=== PATIENT | female | born 1945 | race Caucasian/White ===

== ENCOUNTER 2019-11-24 14:50 | Outpatient (CLI) | payer MEDICARE, SELFPAY ==
--- NOTE | ~2019-11-24 | XR_ITS ---
XR abdomen/kub 1V DATE: 11/24/2019 15:19 INDICATION: Abdominal pain. Constipation. TECHNIQUE: AP view COMPARISON: None FINDINGS: There is a very prominent amount of fecal material in the rectum and colon consistent with constipation. No bowel obstruction is evident. The psoas shadows are intact. No visceromegaly is detected. 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 Moderate os teopenia is suggested. IMPRESSION: Prominent amount of fecal material in the rectum and colon consistent with constipation Reviewed, dictated and finalized at [facility]. Reviewed, dictated and finalized at location A. IMPRESSION: Prominent amount of fecal material in the rectum and colon consiste nt with constipation
== END 2019-11-24 14:51 | disposition home or self-care (01) ==
LOC: ANHIMG 14:57
PROVIDERS: PCP Family Medicine; Visit Provider Family Medicine
DX: K59.00 Constipation, unspecified (principal)
CPT/HCPCS: 74018

== ENCOUNTER 2020-01-11 09:47 | Outpatient (CLI) | payer MEDICARE, SELFPAY ==
--- NOTE | ~2020-01-11 | MM_ITS ---
EXAMINATION: MM screening [facility] BI w corinne HISTORY: Screening mammogram TECHNIQUE: Craniocaudal and mediolateral oblique 3-D tomosynthesis images were obtained and synthetic 2-D images were generated. CAD analysis was submitted and interpreted. COMPARISON: 11/22/2018, 11/16/2017, 11/10/2016 BREAST PARENCHYMAL COMPOSITION: There are scattered areas of fibroglandular density. FINDINGS: There is no evidence of suspicious mass, calcification, or architectural distortion to sugg est malignancy in either breast. There has been no suspicious interval change. IMPRESSION: 1. No mammographic evidence of malignancy. 2. Recommend routine screening mammography in one year. BI-RADS Category 1: Negative Reviewed, dictated and finalized at location A.
== END 2020-01-11 09:48 | disposition home or self-care (01) ==
PROVIDERS: PCP Family Medicine; Visit Provider Family Medicine
DX: Z12.31 Encounter for screening mammogram for malignant neoplasm of breast (principal)
CPT/HCPCS: 77063; 77067

== ENCOUNTER 2020-11-26 03:09 | Day surgery (SDC) | payer MEDICARE, SELFPAY ==
[2020-11-19 13:19] VITALS: BMI 24.4
[2020-11-26 08:45] VITALS: BP 125/65; PULSE 73; RESP 18; TEMP 36.2; O2SAT 99; BMI 23.6
--- NOTE | 2020-11-26 08:58 | WPDANESEPPF ---
Anes - Initial Pre Proc Eval Procedure: Operation Date: 11/26/20 09:30 Proposed Procedures p Screening Colonoscopy - Shaggy Morley MD Date/Time: 11/26/20 08:58 Surgeon: Shaggy Morley MD Pre Op Diagnosis: neoplasm screening Patient Data Age: 75 Gender: F Height: 1.6 m Weight: 60.6 kg Last Vital Signs Temp 36.2 C L 11/26/20 08:45 Pulse 73 11/26/20 08:45 Resp 18 11/26/20 08:45 BP 125/65 11/26/20 08:45 Pulse Ox 99 11/26/20 08:45 Allergies Allergy/AdvReac Type Severity Reaction Status Date / Time alendronate sodium AdvReac Severe joint Verified 11/26/20 08:45 [From Fosamax] stiffness ciprofloxacin AdvReac Unknown Nausea Verified 11/26/20 08:45 Home Medications Medication Instructions Recorded Confirmed Type estradiol 10 mcg vaginal insert 10 mcg VAGINAL 2XW 03/24/19 11/19/20 History lisinopril 10 mg tablet See Rx Instructions .ROUTE 07/16/20 11/19/20 Rx .COMPLEX #90 tablet B-complex with vitamin C ml 11/19/20 History [B-Complex W/Vitamin B-12] geriatric multivitamin-min 1 tablet PO DAILY 11/19/20 11/19/20 History [One-A-Day 50 Plus] lactobacillus combination no.8 1 cell PO DAILY 11/19/20 11/26/20 History [Adult Probiotic] Patient hx anesthesia problems: none Family hx anesthesia problems: none PMFSH Past Medical History Medical History Age related osteoporosis Arthritis Hepatitis C antibody test negative (10/24/16) Surgical History Surgical History (Updated 11/26/20 @ 09:00 by Miguel Ángel Swanson MD) H/O colonoscopy Family History Family History Grandparent Family history of premature coronary heart disease Diabetes mellitus Hypertension Cerebrovascular accident Family history of coronary artery disease Father Hypertension Family history of congestive heart failure Mother Hypertension Son Diabetes mellitus Social History Social History (Updated 10/10/20 @ 13:16 by Kerry Courtney CMA) Smoking status: Never smoker Alcohol intake: current Drinks per week: 7 Alcohol use details: 1 glass wine daily Substance use: never Substance use type: does not use Living arrangements: with family Additional living arrangements comments: lives with spouse Kiran Gender identity (if verbalized by the patient): Female Sexual Orientation (if Verbalized by the Patient): Straight or Heterosexual Spiritual care concerns: No Anes - Eval Final PreProcedure Day of Procedure 11/26/20 08:58 Patient weight: normal Heart: regular rate and rhythm Lungs: clear to auscultation Airway: Mallampati scale class II Neurological: alert and oriented Last oral intake: >/= 8 hours ASA classification: II Emergent: no Anesthetic plan: proceed Anesthesia type and monitoring: general GIVS and standard monitoring Informed Consent: The patient's anesthetic plan and its attendant risks and benefits were discussed with the patient/family/POA. Questions were solicited and answers provided to the satisfaction of the patient/family/POA.
[2020-11-26] MEDS: LACTATED RINGERS 1,000 ML 150 ML IV CONT (08:59)
--- NOTE | 2020-11-26 09:09 | WPDGICN ---
Assessment and Plan Assessment and plan (1) Encounter for screening colonoscopy: Code(s): Z12.11 - Encounter for screening for malignant neoplasm of colon Status: Acute Assessment and Plan: patient presents for screening colonoscopy. Has been 10 years since last exam. Further recommendations will be given after colonoscopy. (2) Constipation: Code(s): K59.00 - Constipation, unspecified Status: Acute Assessment and Plan: Patient with chronic constipation. Suggest she take laxatives on a scheduled basis. Milk of magnesia currently being used. She may benefit from MiraLax several times a week. Further recommendations may be given after colonoscopy. GI Consult Note Consult date/time: 11/26/20 09:09 HPI: Carly Askew is a 75 year old female Presents for colonoscopy. Patient is last colonoscopy was 10 years ago. Patient denies any blood in her stools. She has had a tendency of constipation. This is felt much improved after taking MiraLax in preparation for colonoscopy. She states that tends to be bloated with irregular infrequent bowel movements she previously took milk of magnesia as needed. But had good response to MiraLax preparation for colonoscopy. She denies any bleeding. Family history is noncontributory. Review of Systems Review of Systems: All systems reviewed & are unremarkable except as noted in HPI and below PMFSH Past Medical History Medical History (Updated 11/26/20 @ 09:11 by Shaggy Morley MD) Age related osteoporosis Arthritis Hepatitis C antibody test negative (10/24/16) Surgical History Surgical History (Updated 11/26/20 @ 09:00 by Miguel Ángel Swanson MD) H/O colonoscopy Family History Family History Grandparent Family history of premature coronary heart disease Diabetes mellitus Hypertension Cerebrovascular accident Family history of coronary artery disease Father Hypertension Family history of congestive heart failure Mother Hypertension Son Diabetes mellitus Social History Social History (Updated 10/10/20 @ 13:16 by Kerry Courtney CMA) Smoking status: Never smoker Alcohol intake: current Drinks per week: 7 Alcohol use details: 1 glass wine daily Substance use: never Substance use type: does not use Living arrangements: with family Additional living arrangements comments: lives with spouse Kiran Gender identity (if verbalized by the patient): Female Sexual Orientation (if Verbalized by the Patient): Straight or Heterosexual Spiritual care concerns: No Meds Home Medications and Allergies Home Medications Medication Instructions Recorded Confirmed Type estradiol 10 mcg vaginal insert 10 mcg VAGINAL 2XW 03/24/19 11/19/20 History lisinopril 10 mg tablet See Rx Instructions .ROUTE 07/16/20 11/19/20 Rx .COMPLEX #90 tablet B-complex with vitamin C ml 11/19/20 History [B-Complex W/Vitamin B-12] geriatric multivitamin-min 1 tablet PO DAILY 11/19/20 11/19/20 History [One-A-Day 50 Plus] lactobacillus combination no.8 1 cell PO DAILY 11/19/20 11/26/20 History [Adult Probiotic] Allergies Allergy/AdvReac Type Severity Reaction Status Date / Time alendronate sodium AdvReac Severe joint Verified 11/26/20 08:45 [From Fosamax] stiffness ciprofloxacin AdvReac Unknown Nausea Verified 11/26/20 08:45 Vital Signs Vital Signs - 24 hr 11/26/20 08:45 Temperature 97.1 F L Pulse Rate 73 Respiratory Rate 18 Blood Pressure 125/65 Pulse Oximetry 99 Exam Narrative: Physical exam reveals patient to be alert. Vital signs stable. HEENT exam is unremarkable. Patient is anicteric. Lungs are clear to auscultation and percussion. Heart is without murmur or extra sounds. Abdominal exam bowel sounds are present soft nontender with no hepatosplenomegaly. Digital external rectal exam is normal
[2020-11-26 09:42] VITALS: BP 88/51; PULSE 67; RESP 19; O2SAT 98
[2020-11-26 09:52] VITALS: BP 100/53; PULSE 59; RESP 15; O2SAT 99
[2020-11-26 10:02] VITALS: BP 117/65; PULSE 63; RESP 23; O2SAT 100
== END 2020-11-26 10:15 | disposition home or self-care (01) ==
PROVIDERS: PCP Family Medicine; Visit Provider Internal Medicine Gastroenterology
PROC: 0DJD8ZZ Inspection of Lower Intestinal Tract, Via Natural or Artificial Opening Endoscopic (ICD-10-PCS; CPT 45378; principal; 2020-11-26 09:30)
DX: Z12.11 Encounter for screening for malignant neoplasm of colon (principal); K59.09 Other constipation; K64.8 Other hemorrhoids; M81.0 Age-related osteoporosis without current pathological fracture; M19.90 Unspecified osteoarthritis, unspecified site
CPT/HCPCS: G0121; J2704; J7120

== ENCOUNTER 2021-03-27 13:21 | Outpatient (CLI) | payer MEDICARE, SELFPAY ==
--- NOTE | ~2021-03-27 | MM_ITS ---
EXAMINATION: MM screening [facility] BI w corinne HISTORY: Screening mammogram TECHNIQUE: Craniocaudal and mediolateral oblique 3-D tomosynthesis images were obtained and synthetic 2-D images were generated. CAD analysis was submitted and interpreted. COMPARISON: 01/11/2020, 11/22/2018, 11/16/2017 bilateral screening mammogram examinations BREAST PARENCHYMAL COMPOSITION: There are scattered areas of fibroglandular density. FINDINGS: There is no evidence of suspicious mass, calcification, or architectural distortion to sugg est malignancy in either breast. There has been no suspicious interval change. IMPRESSION: 1. No mammographic evidence of malignancy. 2. Recommend routine screening mammography in one year. BI-RADS Category 1: Negative Reviewed, dictated and finalized at location A. 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
== END 2021-03-27 13:22 | disposition home or self-care (01) ==
LOC: ANHIMG 13:25
PROVIDERS: PCP Family Medicine
DX: Z12.31 Encounter for screening mammogram for malignant neoplasm of breast (principal)
CPT/HCPCS: 77063; 77067

== ENCOUNTER 2021-04-16 13:03 | Outpatient (CLI) | payer MEDICARE, SELFPAY ==
--- NOTE | ~2021-04-16 | DEXA_ITS ---
Bone Density Report Name: JENNIFER TURNER Age: 76 Sex: Female Ethnicity: White Date of : 1945 Indication: osteopenia; parental hip fracture; height loss; prior fracture; Referring Provider: Adenike Lazo Study: Bone densitometry was performed. Exam Date: April 16, 2021 Accession number: [id number] Bone Density: Region BMD T-score Z-score Classification AP Spine (L1-L4) 0.934 -1.0 1.4 Normal Femoral Neck (Left) 0.620 -2.1 0.1 Osteopenia Total Hip (Left) 0.770 -1.4 0.4 Osteopenia Total Hip Bilateral Avg 0.763 -1.5 0.4 Osteopenia Femoral Neck (Right) 0.617 -2.1 0.0 Osteopenia Total Hip (Right) 0.756 -1.5 0.3 Osteopenia World Health Organization criteria for BMD impression classify patients as: Normal (T-score at or above -1.0), Osteopenia (T-score between -1.0 and -2.5), or Osteoporosis (T-score at or below -2.5). 10-year Fracture Risk(1): Major Osteoporotic Fracture 35% Hip Fracture 21% Reported Risk Factors: [place] (), Neck BMD=0.617, BMI=25.1, previous fracture, parental fracture (1) FRAX(R) Version 3.08. Fracture probability calculated for an untreated patient. Fracture probability may be lower if the patient has received treatment. Previous Exams: Region Exam Age BMD T-score BMD Change BMD Change Date g/cm2 vs Baseline vs Previous AP Spine(L1-L4) 04/16/2021 76 0.934 -1.0 -0.146(-13.5%) 0.023(2.5%)* 04/19/2018 73 0.911 -1.2 -0.169(-15.6%) -0.036(-3.8%)* 11/06/2015 70 0.947 -0.9 -0.133(-12.3%) -0.068(-6.7%)# 07/25/2010 65 1.014 -0.3 -0.065(-6.0%)* -0.019(-1.8%) 05/02/2008 63 1.033 -0.1 -0.046(-4.3%)* 0.079(8.3%)* 03/19/2005 60 0.954 -0.8 -0.126(-11.6%) -0.126(-11.6%) 03/31/2001 56 1.079 0.3 Total Hip(Left) 04/16/2021 76 0.770 -1.4 -0.110(-12.5%) -0.009(-1.1%) 04/19/2018 73 0.779 -1.3 -0.101(-11.5%) 0.009(1.2%) 11/06/2015 70 0.770 -1.4 -0.111(-12.6%) -0.021(-2.7%)# 07/25/2010 65 0.791 -1.2 -0.089(-10.2%) -0.001(-0.1%) 05/02/2008 63 0.792 -1.2 -0.088(-10.0%) -0.019(-2.4%) 03/19/2005 60 0.811 -1.1 -0.069(-7.9%)* -0.069(-7.9%)* 03/31/2001 56 0.880 -0.5 Total Hip(Right) 04/16/2021 76 0.756 -1.5 N/A 1.5% 04/19/2018 73 0.744 -1.6 N/A -1.2% 11/06/2015 70 0.753 -1.5 N/A -1.9%# 07/25/2010 65 0.768 -1.4 N/A 0.9% 05/02/2008 63 0.761 -1.5 N/A -0.5% 03/19/2005 60 0.765 -1.5 N/A N/A 03/31/2001 56 N/A N/A
== END 2021-04-16 13:04 | disposition home or self-care (01) ==
LOC: ANHIMG 13:07
PROVIDERS: PCP Family Medicine; Visit Provider Physician Assistant
DX: Z78.0 Asymptomatic menopausal state (principal); M85.851 Other specified disorders of bone density and structure, right thigh; M85.852 Other specified disorders of bone density and structure, left thigh
CPT/HCPCS: 77080

== ENCOUNTER → 2022-01-02 16:04 | Outpatient (CLI) | payer MEDICARE, SELFPAY ==
--- NOTE | ~2022-01-02 | XR_ITS ---
XR foot LT min 3V DATE: 01/02/2022 16:15 INDICATION: Left foot pain after Injury Kicking at. Fifth digit pain TECHNIQUE: 4 views COMPARISON: None FINDINGS: Mildly comminuted intra-articular virtually nondisplaced fracture at the neck and head of t he proximal phalanx of the fifth digit. No other fracture or dislocation. Osteopenia. Pes planus. IMPRESSION: Virtually nondisplaced comminuted intra-articular fracture of the neck and head of the pr oximal phalanx of the fifth digit Reviewed, dictated and finalized at location [facility]. IMPRESSION: Virtually nondisplaced comminuted intra-articular fracture of the n nevaeh and head of the proximal phalanx of the fifth digit
== END ==
PROVIDERS: PCP Nurse Practitioner; Visit Provider Nurse Practitioner
DX: S92.525A Nondisplaced fracture of middle phalanx of left lesser toe(s), initial encounter for closed fracture (principal)
CPT/HCPCS: 73630

== ENCOUNTER → 2022-04-30 10:22 | Outpatient (CLI) | payer MEDICARE, SELFPAY ==
--- NOTE | ~2022-04-30 | MR_ITS ---
MRI of the lumbar spine Clinical History: Sciatica Technique: Axial T2-weighted images, and sagittal T1-weighted, T2-weighted, and T2 fat-sat images wer e acquired. COMPARISON: 10/16/2017 Findings: No acute fracture identified. Osseous alignment is unchanged from prior exam. Stable grade 1 anterolisthesis of L3 over L4. No suspicious bone marrow signal abnormality identified. There are r eactive marrow signal changes about the L5-S1 disc space due to underlying degenerative disc change. At L1-L2, there is mild facet arthropathy. No disc bulge or herniation. No spinal canal stenosis or d efinite neural foraminal narrowing. At L2-L3, there is mild right foraminal disc bulge with minimal facet joint degenerative change. No s martina canal stenosis or left neural foraminal narrowing. There is minimal right neural foraminal narr owing. At L3-L4, disc bulge and facet arthropathy contribute to focal moderate thecal sac compression. There is moderate right neural foraminal narrowing and minimal left neural foraminal narrowing. At L4-L5, disc bulge and facet arthropathy result in severe spinal canal stenosis/thecal sac compress ion. There is moderate bilateral neural foraminal narrowing. At L5-S1, disc bulge and facet arthropathy are present. No spinal canal stenosis. There is minimal le ft neural foraminal narrowing. Right neural foramen preserved. Paravertebral soft tissues are unremarkable. Impression: Degenerative spondylosis is overall similar to prior exam. There is multifactorial severe spinal spring l stenosis/thecal sac compression L4-L5, and moderate thecal sac compression at L3-L4. Multilevel neural foraminal narrowing, as detailed above. Stable grade 1 anterolisthesis of L3 over L4. Reviewed, dictated and finalized at [facility]. [employer] Impression: Degenerative spondylosis is overall similar to prior exam. There is multifactor ial severe spinal canal stenosis/thecal sac compression L4-L5, and moderate the margarito sac compression at L3-L4. Multilevel neural foraminal narrowing, as detailed above. Stable grade 1 anterolisthesis of L3 over L4.
== END ==
PROVIDERS: PCP Family Medicine; Visit Provider Family Medicine
DX: M47.816 Spondylosis without myelopathy or radiculopathy, lumbar region (principal)
CPT/HCPCS: 72148

== ENCOUNTER 2022-06-10 14:56 | Outpatient (CLI) | payer MEDICARE, SELFPAY ==
--- NOTE | ~2022-06-10 | MM_ITS ---
EXAMINATION: MM screening [facility] BI w corinne HISTORY: Screening mammogram TECHNIQUE: Craniocaudal and mediolateral oblique 3-D tomosynthesis images were obtained and synthetic 2-D images were generated. CAD analysis was submitted and interpreted. COMPARISON: 03/27/2021, 01/11/2020, 11/22/2018 bilateral screening mammogram examinations BREAST PARENCHYMAL COMPOSITION: There are scattered areas of fibroglandular density. FINDINGS: There is no evidence of suspicious mass, calcification, or architectural distortion to sugg est malignancy in either breast. There has been no suspicious interval change. IMPRESSION: 1. No mammographic evidence of malignancy. 2. Recommend routine screening mammography in one year. BI-RADS Category 1: Negative Reviewed, dictated and finalized at location A. NISTRATIVE SERVICES MANAGER
== END 2022-06-10 14:57 | disposition home or self-care (01) ==
PROVIDERS: PCP Family Medicine; Visit Provider Family Medicine
DX: Z12.31 Encounter for screening mammogram for malignant neoplasm of breast (principal)
CPT/HCPCS: 77063; 77067

== ENCOUNTER 2022-08-19 11:39 | Outpatient (CLI) | payer MEDICARE, SELFPAY ==
[2022-08-20 09:28] LABS: Kit Draw Collected
== END 2022-08-19 11:40 | disposition home or self-care (01) ==
LOC: ANHGOSHLAB 11:40
PROVIDERS: PCP Family Medicine; Visit Provider Family Medicine
DX: E03.9 Hypothyroidism, unspecified (principal); I10 Essential (primary) hypertension; Z79.899 Other long term (current) drug therapy
CPT/HCPCS: 36415

== ENCOUNTER 2022-12-05 12:01 | Emergency (ER) | payer MEDICARE, SELFPAY ==
--- NOTE | 2022-12-05 12:34 | ED.SKABFB ---
HPI - Skin/Abscess/Foreign Bdy General Chief complaint: Skin/Abscess/Foreign Body Stated complaint: Sore on left leg Time Seen by Provider: 12/05/22 12:35 Source: patient and RN notes reviewed Mode of arrival: ambulatory Limitations: no limitations History of Present Illness HPI narrative: 77-year-old female presents with concern for an infected wound. She reports she had spot on her leg that she had excised at a fruit buyer. She reports for 1 week the area has been open, not healing with surrounding redness, tenderness. Reports purulent drainage from it today. Reports she has been cleaning it with Dial soap and using Neosporin, keeping it covered. MD complaint: other Related Data Home Medications Medication Instructions Recorded Confirmed geriatric multivitamin-min 1 tablet PO DAILY 11/19/20 08/21/22 trimethoprim 100 mg tablet 100 mg PO DAILY 12/05/22 12/05/22 Allergies Allergy/AdvReac Type Severity Reaction Status Date / Time alendronate sodium AdvReac Severe joint Verified 08/21/22 13:24 [From Fosamax] stiffness ciprofloxacin AdvReac Unknown Nausea Verified 08/21/22 13:24 Review of Systems Review of Systems: CONSTITUTIONAL: Denies malaise, chills, sweats, or fever. IOVASCULAR: Denies chest pain, palpitations, or edema. SKIN: Reports nonhealing wound on her leg with purulent drainage MUSCULOSKELETAL: Denies joint pain or myalgia. NEUROLOGIC: Denies headache. All systems reviewed & are unremarkable except as noted in HPI and below PMFSH Past Medical History Medical History Age related osteoporosis Allergy to insect bites Arthritis Bacterial vaginosis Body mass index [BMI] 24.0-24.9, adult (12/03/18) Breast cancer screening Constipation in female Dysuria Elevated blood pressure reading without diagnosis of hypertension Encounter for immunization (01/19/18) Hematuria, unspecified Hepatitis C antibody test negative (10/24/16) Liver disease, unspecified Nocturia Other spondylosis with radiculopathy, lumbar region Pain in joint involving lower leg Post-menopause Recurrent cystitis Sciatica of right side Trigger middle finger of right hand URI, acute Urine frequency UTI (urinary tract infection), bacterial Surgical History Surgical History H/O colonoscopy Ovarian cyst 1998 Dr. Greene Family History Family History Grandparent Family history of premature coronary heart disease Diabetes mellitus Hypertension Cerebrovascular accident Family history of coronary artery disease Father Hypertension Family history of congestive heart failure Mother Hypertension Son Diabetes mellitus Other Arthritis Social History Social History Smoking status: Never smoker Alcohol intake: current Drinks per week: 7 Alcohol use details: 1 glass wine daily Substance use: never Substance use type: does not use Lack of Transportation: No Lack of Food: Never True Current Housing: I Have Housing Concerned About Future Housing: No Difficulty Paying Gas/Electric Bills: No Difficulty Paying for Meds: No Currently Unemployed: No Education: Associate Degree Difficulty w/ Childcare or Family Care: No Living arrangements: with family Additional living arrangements comments: lives with spouse Kiran Occupation/Education: retired Gender identity (if verbalized by the patient): Female Sexual Orientation (if Verbalized by the Patient): Straight or Heterosexual Spiritual care concerns: No Comments At time of signature, agree with nursing past medical, surgical, social and family history. There is no relevant family history pertinent to the presenting complaint Exam Narrative: GENERAL: Well-appearing, well-nourished, and in no acute distress. HEA
[2022-12-05 12:37] VITALS: BP 145/85; PULSE 66; RESP 16; TEMP 36.5; O2SAT 100
== END 2022-12-05 12:55 | disposition home or self-care (01) ==
PROVIDERS: Emergency Provider Nurse Practitioner; PCP Family Medicine
DX: L03.116 Cellulitis of left lower limb (principal); M19.90 Unspecified osteoarthritis, unspecified site; M47.26 Other spondylosis with radiculopathy, lumbar region
CPT/HCPCS: 99213; G0463

== ENCOUNTER → 2022-12-29 12:34 | Outpatient (CLI) | payer MEDICARE, SELFPAY ==
--- NOTE | ~2022-12-29 | CT_ITS ---
CT of the Abdomen and Pelvis: Indication: Abdominal distention Technique: 2.5 mm axial scans were obtained through the abdomen and pelvis following intravenous adm inistration of 100 cc of Omnipaque 350. Dose reduction technique was used on this scan by utilizing a utomated exposure control and iterative reconstruction technique. The dose-length product (DLP) was 4 97.05 mGy-cm. Findings: Scans through the lung bases are unremarkable. The liver, spleen, pancreas, gallbladder, adrenals and kidneys are within normal limits. There are atherosclerotic calcifications of the aorta. No lymphadenopathy. No bowel obstruction or bowel wall thickening. Large stool burden suggests constipation. Images through the pelvis were performed. Urinary bladder unremarkable. No adnexal mass evident. No a scites. Impression: Large stool burden suggests constipation. Reviewed, dictated and finalized at [facility]. Impression: Large stool burden suggests constipation.
[2022-12-29 12:56] LABS: Estimated Glomerular Filt Rate > 60
== END ==
PROVIDERS: PCP Family Medicine
DX: R14.0 Abdominal distension (gaseous) (principal)
CPT/HCPCS: 74177; Q9967

== ENCOUNTER 2023-02-02 09:33 | Outpatient (CLI) | payer MEDICARE, SELFPAY ==
[2023-02-02 19:24] LABS: Hematocrit 43.9 % (37.0-47.0); Hemoglobin 14.2 g/dL (12.0-15.0); Mean Corpuscular HGB Conc 32.3 g/dl (32-36); Mean Corpuscular Hemoglobin 32.7 pg (26-34); Mean Corpuscular Volume 101.2 fl (80-100); Mean Platelet Volume 10.1 fl (7.4-10.4); Platelet Count Result 307 k/mm3 (150-375); Red Blood Count 4.34 M/mm3 (4.2-5.4); Red Cell Distribution Width 12.2 % (11.5-14.5); White Blood Count 4.9 K/mm3 (4.5-10.0)
[2023-02-02 19:49] LABS: Alanine Aminotransferase 27 U/L (6-35); Albumin Level 4.4 g/dL (3.5-5.1); Alkaline Phosphatase 75 U/L (38-126); Anion Gap 6 mmol/L (8-16); Aspartate Amino Transferase 43 U/L (14-36); Bilirubin,Total 0.7 mg/dL (0.2-1.3); Blood Urea Nitrogen 20 mg/dL (7-17); Calcium 10.3 mg/dL (8.4-10.2); Carbon Dioxide 31 mmol/L (22-30); Chloride 95 mmol/L (98-107); Cholesterol 195 mg/dL (0-200); Estimated Glomerular Filt Rate > 60; Glucose 65 mg/dL (65-110); HDL Direct 75 mg/dL; Potassium 4.1 mmol/L (3.4-5.0); Sodium 132 mmol/L (137-145); Triglycerides 93 mg/dL (<150)
[2023-02-02 20:00] LABS: LDL Cholesterol Direct 89 mg/dL
== END 2023-02-02 09:34 | disposition home or self-care (01) ==
LOC: ANHGOSHLAB 09:35
PROVIDERS: PCP Family Medicine; Visit Provider Family Medicine
DX: E66.3 Overweight (principal); I10 Essential (primary) hypertension; Z79.899 Other long term (current) drug therapy
CPT/HCPCS: 36415; 80053; 80061; 84443; 85027

== ENCOUNTER 2023-02-08 12:14 | Emergency (ER) | payer MEDICARE, SELFPAY ==
--- NOTE | 2023-02-08 12:22 | ED.FEMALEGU ---
HPI - Female Genitourinary General Chief complaint: Urogenital-Female Stated complaint: Uti symptoms Time Seen by Provider: 02/08/23 12:28 Source: patient, RN notes reviewed and old records reviewed Mode of arrival: ambulatory Limitations: no limitations History of Present Illness HPI Narrative: 78-year-old female presents to the [facility] with concerns for a UTI. Patient reports since Thursday she has had burning, frequency and urgency. States last night she had to get up during the night to urinate. Patient denies any nausea or vomiting. No new back pain. Denies any abdominal pain. Has a urologist, Dr. Donovan. Has a history of chronic UTIs takes trimethoprim Onset (ago): day(s) (2) Related Data Home Medications Medication Instructions Recorded Confirmed geriatric multivitamin-min 1 tablet PO DAILY 11/19/20 02/03/23 trimethoprim 100 mg tablet 100 mg PO DAILY 12/05/22 02/03/23 Allergies Allergy/AdvReac Type Severity Reaction Status Date / Time alendronate sodium AdvReac Severe joint Verified 02/03/23 15:14 [From Fosamax] stiffness ciprofloxacin AdvReac Unknown Nausea Verified 02/03/23 15:14 Review of Systems Review of Systems: All systems reviewed & are unremarkable except as noted in HPI and below Constitutional: Constitutional: Reports no additional constitutional complaints Eyes: Eyes: Reports no additional eye complaints ENT: Reports system reviewed and no additional complaints, except as documented Cardiovascular: Cardiovascular: Reports no additional cardiovascular complaints, Denies chest pain and Denies dyspnea Respiratory: Respiratory: Reports no additional respiratory complaints, Denies chest congestion, Denies cough and Denies dyspnea Gastrointestinal: Gastrointestinal: Reports no additional gastrointestinal complaints, Denies abdominal pain, Denies nausea and Denies vomiting Genitourinary: Genitourinary: Reports as per HPI, Reports dysuria and Reports urinary urgency Musculoskeletal: Musculoskeletal: Reports no additional musculoskeletal complaints Integumentary/Breasts: Skin/Breast: Reports system reviewed and no additional complaints, except as docu Neurologic: Reports system reviewed and no additional complaints, except as documented Psychiatric: Psychiatric: Reports no additional psychiatric complaints Allergic/Immunologic: Allergic/Immunologic: Reports no additional allergic/immunologic complaints PMFSH Past Medical History Medical History Age related osteoporosis Allergy to insect bites Arthritis Bacterial vaginosis Body mass index [BMI] 24.0-24.9, adult (12/03/18) Breast cancer screening Constipation in female Dysuria Elevated blood pressure reading without diagnosis of hypertension Encounter for immunization (01/19/18) Hematuria, unspecified Hepatitis C antibody test negative (10/24/16) Liver disease, unspecified Nocturia Other spondylosis with radiculopathy, lumbar region Pain in joint involving lower leg Post-menopause Recurrent cystitis Sciatica of right side Trigger middle finger of right hand URI, acute Urine frequency UTI (urinary tract infection), bacterial Surgical History Surgical History H/O colonoscopy Ovarian cyst [address] Dr. Greene Family History Family History Grandparent Family history of premature coronary heart disease Diabetes mellitus Hypertension Cerebrovascular accident Family history of coronary artery disease Father Hypertension Family history of congestive heart failure Mother Hypertension Son Diabetes mellitus Other Arthritis Social History Social History Smoking status: Never smoker Alcohol intake: current Alcohol use details: occasionally Substance use: never Substance use type: does not use
[2023-02-08 12:26] VITALS: BP 117/76; PULSE 79; RESP 16; TEMP 36.4; O2SAT 100
== END 2023-02-08 12:45 | disposition home or self-care (01) ==
PROVIDERS: Emergency Provider Nurse Practitioner; PCP Family Medicine
DX: N30.01 Acute cystitis with hematuria (principal); M81.0 Age-related osteoporosis without current pathological fracture; M19.90 Unspecified osteoarthritis, unspecified site; M47.26 Other spondylosis with radiculopathy, lumbar region; K76.9 Liver disease, unspecified
CPT/HCPCS: 81003; 87077; 87086; 87186; 99213; G0463

== ENCOUNTER 2023-03-11 13:26 | Emergency (ER) | payer MEDICARE, SELFPAY ==
[2023-03-11 13:31] VITALS: BP 129/62; PULSE 87; RESP 16; TEMP 36.4; O2SAT 99
--- NOTE | 2023-03-11 13:53 | ED.FEMALEGU ---
HPI - Female Genitourinary General Chief complaint: Urogenital-Female Stated complaint: UTI SYMPTOMS Time Seen by Provider: 03/11/23 13:45 Source: patient and RN notes reviewed Mode of arrival: ambulatory Limitations: no limitations History of Present Illness HPI Narrative: Patient presents today complaining of lower abdominal discomfort, cloudy and malodorous urine since yesterday. Patient has an extensive history of UTI and is followed by her urologist, Dr. Donovan. One month ago she was seen at [facility] and diagnosed with a UTI. Culture results were positive for E coli. She was treated with Augmentin. States 3 weeks ago she was seen by Urology in her culture came back positive. She was treated with 3 days of Cipro, which she states improved her symptoms. She took azo last night for her current symptoms. States she takes trimethoprim daily and has recently been self cathing. Related Data Home Medications Medication Instructions Recorded Confirmed geriatric multivitamin-min 1 tablet PO DAILY 11/19/20 03/11/23 trimethoprim 100 mg tablet 100 mg PO DAILY 12/05/22 03/11/23 Allergies Allergy/AdvReac Type Severity Reaction Status Date / Time alendronate sodium AdvReac Severe joint Verified 03/11/23 13:42 [From Fosamax] stiffness ciprofloxacin AdvReac Unknown Nausea Verified 03/11/23 13:42 Review of Systems Review of Systems: CONSTITUTIONAL: Denies body aches, fever, chills, or sweats. EYES: Denies visual changes, redness, or discharge. ENT: Denies rhinorrhea, congestion, sore throat, or otalgia. CARDIOVASCULAR: Denies chest pain, palpitations, or edema. RESPIRATORY: Denies cough or dyspnea. GASTROINTESTINAL: Denies abdominal pain, nausea, vomiting, or diarrhea. GENITOURINARY:+ lower abdominal discomfort, cloudy and malodorous urine SKIN: Denies rash, itching, or wounds. MUSCULOSKELETAL: Denies back pain, joint pain, or myalgia. NEUROLOGIC: Denies headache, numbness, tingling, or weakness. PSYCH: Denies depression or anxiety. [facility] Past Medical History Medical History Age related osteoporosis Allergy to insect bites Arthritis Bacterial vaginosis Body mass index [BMI] 24.0-24.9, adult (12/03/18) Breast cancer screening Constipation in female Dysuria Elevated blood pressure reading without diagnosis of hypertension Encounter for immunization (01/19/18) Hematuria, unspecified Hepatitis C antibody test negative (10/24/16) Liver disease, unspecified Nocturia Other spondylosis with radiculopathy, lumbar region Pain in joint involving lower leg Post-menopause Recurrent cystitis Sciatica of right side Trigger middle finger of right hand URI, acute Urine frequency UTI (urinary tract infection), bacterial Surgical History Surgical History H/O colonoscopy Ovarian cyst 1998 Dr. Greene Family History Family History Grandparent Family history of premature coronary heart disease Diabetes mellitus Hypertension Cerebrovascular accident Family history of coronary artery disease Father Hypertension Family history of congestive heart failure Mother Hypertension Son Diabetes mellitus Other Arthritis Social History Social History Smoking status: Never smoker Alcohol intake: current Alcohol use details: occasionally Substance use: never Substance use type: does not use Lack of Transportation: No Lack of Food: Never True Current Housing: I Have Housing Concerned About Future Housing: No Difficulty Paying Gas/Electric Bills: No Difficulty Paying for Meds: No Currently Unemployed: No Education: Associate Degree Difficulty w/ Childcare or Family Care: No Living arrangements: with family Additional living arrangements comments
== END 2023-03-11 14:00 | disposition home or self-care (01) ==
PROVIDERS: Emergency Provider Nurse Practitioner; PCP Family Medicine
DX: N39.0 Urinary tract infection, site not specified (principal); B96.20 Unspecified Escherichia coli [E. coli] as the cause of diseases classified elsewhere; M81.0 Age-related osteoporosis without current pathological fracture; M47.896 Other spondylosis, lumbar region
CPT/HCPCS: 81003; 87077; 87086; 87186; 99213; G0463

== ENCOUNTER → 2023-04-17 14:48 | Outpatient (CLI) | payer MEDICARE, SELFPAY ==
--- NOTE | ~2023-04-17 | XR_ITS ---
XR lumbar spine bending only DATE: 04/17/2023 15:18 INDICATION: Lumbar radiculitis TECHNIQUE: Standing flexion and extension lateral views of the lumbar spine COMPARISON: 04/30/2022 MRI lumbar spine FINDINGS: There is grade 1 anterolisthesis at L3-4, measuring approximately 3.7 mm in flexion, 2.9 mm in extens ion. There is grade 1 anterolisthesis at L4-5, measuring approximately 8.9 mm in flexion, 6.2 mm in extens ion. There is diffuse osteopenia. There is multilevel degenerative disc disease, mild at L1 to, moderately severe at L2-3, L3-4, moderate at L4-5 and L5-S1. IMPRESSION: Anterolisthesis at L3-4 and to a greater extent L4-5 Multilevel degenerative disease Osteopenia Reviewed, dictated and finalized at location B. [employer]OR [employer] OPERATIONS
--- NOTE | ~2023-04-17 | XR_ITS ---
XR hip LT 2V w AP pelvis DATE: 04/17/2023 15:19 INDICATION: Lumbar radiculitis TECHNIQUE: AP view of pelvis. AP and lateral left hip COMPARISON: None FINDINGS: There is mild spurring of the left femoral head consistent with mild osteoarthritis, but le ft hip joint spaces are relatively preserved. No fracture or dislocation, avascular necrosis or bone destruction of the left hip. The pubic symphysis and sacroiliac joints are intact. No pelvic fracture or bone destruction. IMPRESSION: Mild left hip osteoarthritis Reviewed, dictated and finalized at location B. 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
== END ==
PROVIDERS: PCP Family Medicine; Visit Provider Chiropractor
DX: M54.16 Radiculopathy, lumbar region (principal); M16.12 Unilateral primary osteoarthritis, left hip; M43.06 Spondylolysis, lumbar region; M51.36 Other intervertebral disc degeneration, lumbar region; M85.89 Other specified disorders of bone density and structure, multiple sites
CPT/HCPCS: 72120; 73502

== ENCOUNTER 2023-08-07 11:42 | Outpatient (CLI) | payer MEDICARE, SELFPAY ==
[2023-08-07 14:02] LABS: Alanine Aminotransferase 29 U/L (6-35); Albumin Level 4.6 g/dL (3.5-5.1); Alkaline Phosphatase 83 U/L (38-126); Anion Gap 4 mmol/L (4-12); Aspartate Amino Transferase 66 U/L (14-36); Bilirubin,Total 0.7 mg/dL (0.2-1.3); Blood Urea Nitrogen 24 mg/dL (7-17); Calcium 10.4 mg/dL (8.4-10.2); Carbon Dioxide 32 mmol/L (22-30); Chloride 97 mmol/L (98-107); Cholesterol 188 mg/dL (0-200); Estimated Glomerular Filt Rate > 60; Glucose 104 mg/dL (65-110); HDL Direct 85 mg/dL; Potassium 4.3 mmol/L (3.4-5.0); Sodium 133 mmol/L (137-145); Triglycerides 114 mg/dL (<150)
[2023-08-07 14:13] LABS: LDL Cholesterol Direct 86 mg/dL
[2023-08-07 15:18] LABS: Vitamin D 25 Hydroxy 50.9 ng/mL
== END 2023-08-07 11:43 | disposition home or self-care (01) ==
LOC: ANHGOSHLAB 11:44
PROVIDERS: PCP Family Medicine; Visit Provider Nurse Practitioner
DX: E78.5 Hyperlipidemia, unspecified (principal); E03.9 Hypothyroidism, unspecified; E87.1 Hypo-osmolality and hyponatremia; E55.9 Vitamin D deficiency, unspecified
CPT/HCPCS: 36415; 80053; 80061; 82306; 84443

== ENCOUNTER 2023-11-19 16:26 | Emergency (ER) | payer MEDICARE, SELFPAY ==
[2023-11-19 16:43] VITALS: BP 128/80; PULSE 74; RESP 16; TEMP 36.3; O2SAT 100
--- NOTE | 2023-11-19 16:49 | ED.FEMALEGU ---
HPI - Female Genitourinary General Chief complaint: Urogenital-Female Stated complaint: Uti Symptoms Time Seen by Provider: 11/19/23 16:50 Source: patient, RN notes reviewed and old records reviewed Mode of arrival: ambulatory Limitations: no limitations History of Present Illness HPI Narrative: 78 year old female who presents to [facility] care with complaints of possible UTI. Patient reports that she has been treated in past with Botox to her bladder for urinary problems and she does do self catheterization routinely 3 times daily. She reports 2 episodes today where she has had gushes of urine that is odorous.Patient reports that she did have epidural steroid injection yesterdau to her back, has had in the past, no redness or swelling at site of injection, patient denies any saddle paraesthesia. Patient does also report history of constipation and IBS, takes Linzess daily. MD elicited complaint: UTI Pertinent past history: other (Botox to bladder in past does daily self cateterization) Onset (ago): day(s) (since yesterday) Location of symptoms: urethra Vaginal discharge: none Related Data Home Medications Medication Instructions Recorded Confirmed geriatric multivitamin-min 1 tablet PO DAILY 11/19/20 11/19/23 trazodone 50 mg tablet 50 mg PO QHS PRN Sleep 11/12/23 11/19/23 methenamine hippurate 1 gram tablet 1 g PO BID 11/19/23 11/19/23 Allergies Allergy/AdvReac Type Severity Reaction Status Date / Time alendronate sodium AdvReac Severe joint Verified 11/19/23 16:38 [From Fosamax] stiffness ciprofloxacin AdvReac Unknown Nausea Verified 11/19/23 16:38 Review of Systems Review of Systems: CONSTITUTIONAL: Denies fever, chills, or sweats. CARDIOVASCULAR: Denies chest pain, palpitations, or edema. RESPIRATORY: Denies cough or dyspnea. GASTROINTESTINAL: Denies abdominal pain, nausea, vomiting, or diarrhea. GENITOURINARY: Reports no dysuria, frequency, urgency, leaking of urine reported. Denies flank pain or hematuria. reports odorous urine SKIN: Denies rash or itching. MUSCULOSKELETAL: Reports history of chronic lower back pain or myalgia. Denies CVA tenderness, denies any saddle paraesthesia NEUROLOGIC: Denies headache All systems reviewed & are unremarkable except as noted in HPI and below PMFSH Past Medical History Medical History Age related osteoporosis Allergy to insect bites Arthritis Bacterial vaginosis Body mass index [BMI] 24.0-24.9, adult (12/03/18) Breast cancer screening Constipation in female Dysuria Elevated blood pressure reading without diagnosis of hypertension Encounter for immunization (01/19/18) Hematuria, unspecified Hepatitis C antibody test negative (10/24/16) Liver disease, unspecified Nocturia Other spondylosis with radiculopathy, lumbar region Pain in joint involving lower leg Post-menopause Recurrent cystitis Sciatica of right side Trigger middle finger of right hand URI, acute Urine frequency UTI (urinary tract infection), bacterial Surgical History Surgical History H/O colonoscopy Ovarian cyst 1998 Dr. Greene Family History Family History Grandparent Family history of premature coronary heart disease Diabetes mellitus Hypertension Cerebrovascular accident Family history of coronary artery disease Father Hypertension Family history of congestive heart failure Mother Hypertension Son Diabetes mellitus Other Arthritis Social History Social History Smoking status: Never smoker Alcohol intake: current Alcohol use details: occasionally Substance use: never Substance use type: does not use Lack of Transportation: No Lack of Food: Never True Current Housing: I Have Housing Concerned About Future Housing: No Difficulty Payi
[2023-11-19 17:04] LABS: EDUAAPPEAR Clear; EDUABILI Negative; EDUABLOOD Negative; EDUACOLOR1 Yellow; EDUAGLUCOSE Negative; EDUAKETONE Negative; EDUALEUKO Trace; EDUANITRATE Negative; EDUAPROTEIN Negative; EDUAUROBILI 0.2
== END 2023-11-19 17:14 | disposition home or self-care (01) ==
PROVIDERS: Emergency Provider Registered Nurse; PCP Family Medicine
DX: R39.9 Unspecified symptoms and signs involving the genitourinary system (principal); R32 Unspecified urinary incontinence; M81.0 Age-related osteoporosis without current pathological fracture
CPT/HCPCS: 81003; 87077; 87086; 87088; 87186; 99213; G0463

== ENCOUNTER 2024-02-26 15:06 | Outpatient (CLI) | payer MEDICARE, SELFPAY ==
--- NOTE | ~2024-02-26 | MM_ITS ---
EXAMINATION: MM screening [facility] BI w corinne HISTORY: Screening mammogram TECHNIQUE: Craniocaudal and mediolateral oblique 3-D tomosynthesis images were obtained and synthetic 2-D images were generated. CAD analysis was submitted and interpreted. COMPARISON: 06/10/2022, 03/27/2021, 01/11/2020 BREAST PARENCHYMAL COMPOSITION:Dense: The breasts are heterogeneously dense, which may obscure small masses. FINDINGS: No suspicious mass, calcification, or architectural distortion are identified in either reyna ast to suggest malignancy. There has been no suspicious interval change. IMPRESSION: No mammographic evidence of malignancy. Recommend routine screening mammography in one year. BI-RADS Category 1: Negative Reviewed, dictated and finalized at location . 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
== END 2024-02-26 15:07 | disposition home or self-care (01) ==
LOC: ANHIMG 15:08
PROVIDERS: PCP Family Medicine; Visit Provider Family Medicine
DX: Z12.31 Encounter for screening mammogram for malignant neoplasm of breast (principal)
CPT/HCPCS: 77063; 77067

== ENCOUNTER 2024-04-20 14:10 | Outpatient (CLI) | payer MEDICARE, SELFPAY ==
[2024-04-20 19:25] LABS: Hematocrit 42.8 % (37.0-47.0); Hemoglobin 13.8 g/dL (12.0-15.0); Mean Corpuscular HGB Conc 32.2 g/dl (32-36); Mean Corpuscular Hemoglobin 32.2 pg (26-34); Mean Corpuscular Volume 99.8 fl (80-100); Mean Platelet Volume 9.9 fl (7.4-10.4); Platelet Count Result 278 k/mm3 (150-375); Red Blood Count 4.29 M/mm3 (4.2-5.4); Red Cell Distribution Width 13.2 % (11.5-14.5); White Blood Count 7.4 K/mm3 (4.5-10.0)
[2024-04-20 19:59] LABS: Vitamin D 25 Hydroxy 68.5 ng/mL
[2024-04-20 20:05] LABS: Alanine Aminotransferase 26 U/L (6-35); Albumin Level 4.4 g/dL (3.5-5.1); Alkaline Phosphatase 82 U/L (38-126); Anion Gap 5 mmol/L (4-12); Aspartate Amino Transferase 41 U/L (14-36); Bilirubin,Total 0.7 mg/dL (0.2-1.3); Blood Urea Nitrogen 22 mg/dL (7-17); Carbon Dioxide 31 mmol/L (22-30); Chloride 98 mmol/L (98-107); Cholesterol 197 mg/dL (0-200); Estimated Glomerular Filt Rate > 60; Glucose 94 mg/dL (65-110); HDL Direct 92 mg/dL; Potassium 4.2 mmol/L (3.4-5.0); Sodium 134 mmol/L (137-145); Triglycerides 119 mg/dL (<150)
[2024-04-20 20:16] LABS: LDL Cholesterol Direct 73 mg/dL
== END 2024-04-20 14:11 | disposition home or self-care (01) ==
LOC: ANHGOSHLAB 14:11
PROVIDERS: PCP Family Medicine; Visit Provider Nurse Practitioner
DX: E55.9 Vitamin D deficiency, unspecified (principal); E03.9 Hypothyroidism, unspecified
CPT/HCPCS: 36415; 80053; 80061; 82306; 84443; 85027

== ENCOUNTER 2024-06-01 18:09 | Emergency (ER) | payer MEDICARE, SELFPAY ==
[2024-06-01 18:17] VITALS: BP 132/76; PULSE 82; RESP 16; TEMP 36.3; O2SAT 99
--- NOTE | 2024-06-01 18:28 | PC.NURSE ---
1816- Rn to Rn report received from Gayle Burroughs
--- NOTE | 2024-06-01 18:42 | ED.FEMALEGU ---
HPI - Female Genitourinary General Chief complaint: Urogenital-Female Stated complaint: UTI SYMPTOMS Time Seen by Provider: 06/01/24 18:42 Source: patient Mode of arrival: ambulatory Limitations: no limitations History of Present Illness HPI Narrative: 79-year-old female presents with malodorous urine for 2-3 days. Today began having urinary frequency and urgency, bladder pressure. No dysuria. Afebrile. All systems reviewed and negative except as noted above. Related Data Home Medications ?Medication ?Instructions ?Recorded ?Confirmed ?Last Taken ?Type geriatric multivitamin-min 1 tablet PO DAILY 11/19/20 04/20/24 11/25/20 History trazodone 50 mg tablet 50 mg PO QHS PRN Sleep 11/12/23 04/20/24 Unknown History methenamine hippurate 1 gram tablet 1 g PO BID 11/19/23 04/20/24 Unknown History Allergies Allergy/AdvReac Type Severity Reaction Status Date / Time alendronate sodium (From AdvReac Severe joint Verified 06/01/24 18:20 Fosamax) stiffness ciprofloxacin AdvReac Unknown Nausea Verified 06/01/24 18:20 Review of Systems Review of Systems: CONSTITUTIONAL: Denies fever, chills, or sweats. EYES: Denies visual changes, redness, or discharge. ENT: Denies rhinorrhea, congestion, sore throat, or otalgia. CARDIOVASCULAR: Denies chest pain, palpitations, or edema. RESPIRATORY: Denies cough or dyspnea. GASTROINTESTINAL: Denies abdominal pain, nausea, vomiting, or diarrhea. GENITOURINARY: Denies dysuria and hematuria. Reports urinary frequency, urgency, malodorous. SKIN: Denies rash or itching. MUSCULOSKELETAL: Denies back pain, joint pain, or myalgia. NEUROLOGIC: Denies headache, numbness, or weakness. PSYCHIATRIC: Denies anxiety or depression. All other systems reviewed are negative, except as documented in HPI. [facility] Past Medical History Medical History Body mass index [BMI] 24.0-24.9, adult (12/03/18) UTI (urinary tract infection), bacterial Urine frequency URI, acute Trigger middle finger of right hand Sciatica of right side Recurrent cystitis Post-menopause Pain in joint involving lower leg Other spondylosis with radiculopathy, lumbar region Nocturia Liver disease, unspecified Hematuria, unspecified Encounter for immunization (01/19/18) Elevated blood pressure reading without diagnosis of hypertension Dysuria Constipation in female Breast cancer screening Bacterial vaginosis Allergy to insect bites Age related osteoporosis Arthritis Hepatitis C antibody test negative (10/24/16) Surgical History Surgical History Ovarian cyst [address] Dr. Greene H/O colonoscopy Family History Family History Grandparent Family history of premature coronary heart disease Diabetes mellitus Hypertension Cerebrovascular accident Family history of coronary artery disease Father Hypertension Family history of congestive heart failure Mother Hypertension Son Diabetes mellitus Other Arthritis Social History Social History Smoking status: Never smoker Alcohol intake: current Alcohol use details: occasionally Substance use: never Substance use type: does not use Lack of Transportation: No Lack of Food: Never True Current Housing: I Have Housing Concerned About Future Housing: No Difficulty Paying Gas/Electric Bills: No Difficulty Paying for Meds: No Currently Unemployed: No Education: Associate Degree Difficulty w/ Childcare or Family Care: No Living arrangements: with family Additional living arrangements comments: lives with spouse Kiran Occupation/Education: retired Gender identity (if verbalized by the patient): Female Sexual Orientation (if Verbalized by the Patient): Straight or Heterosexual Spiritual care concerns: No Comments At time of signature, agree with nursing past medical, surgical, social and family history. There is no relevant family history pertinent to the presenting complaint. Exam Narrative: GENERAL: This is a well-nourished, well-developed patient, in no apparent distress. HEAD: normocephalic, atraumatic. EYES: PERRL. Sclera clear/white. Vision is grossly intact. EARS: External ears normal NOSE: External nose normal NECK: Neck supple, non-tender without lymphadenopathy, masses or thyromegaly. CARDIOVASCULAR: Regular rate and rhythm without murmurs, gallops, or rubs. RESPIRATORY: Clear to auscultation. Breath sounds equal bilaterally. No wheezes, rales, or rhonchi. SKIN: warm, Dry, intact with no suspicious lesions or rash, good texture and turgor. NEURO: awake, alert, and oriented to person, place and time. There were no obvious focal neurologic abnormalities. EXTREMITIES: No joint tenderness, effusion, or edema noted. Course Course Level of Care: Express Care Visit Vital Signs Vital signs: Vital Signs Temperature 36.3 C L 06/01/24 18:17 Pulse Rate 82 06/01/24 18:17 Respiratory Rate 16 06/01/24 18:17 Blood Pressure 132/76 06/01/24 18:17 Pulse Oximetry 99 06/01/24 18:17 Temperature 36.3 C L 06/01/24 18:17 Pulse Rate 82 06/01/24 18:17 Respiratory Rate 16 06/01/24 18:17 Blood Pressure 132/76 06/01/24 18:17 Pulse Oximetry 99 06/01/24 18:17 Reviewed MDM - Female Genitourinary MDM Narrative Medical decision making narrative: Urinalysis positive for leukocytes, blood. Will treat patient with antibiotic due to urinary symptoms. Patient is well-appearing, nontoxic. Afebrile. Please be advised this is a medical document. It is intended for [id number] communication. It is written in medical language and may contain unfamiliar abbreviations or verbiage. Medical documents are intended to carry relevant information, facts as evident, and the clinical opinion of the practitioner at the time of the encounter. This report may have been done utilizing a voice recognition system. Attempts have been made to correct errors. However, there may be uncorrected grammatical, spelling, and recognition errors present. The file time of this note does not necessarily represent the time of service. Differential Diagnosis Differential diagnosis: Likely urinary tract infection Lab Data Labs: Lab Results 06/01/24 Range/Units 18:43 POC Urine Color Yellow POC Urine Clarity Cloudy POC Urine pH 6.5 POC Ur Specif [place] 1.020 POC Urine Protein Negative (Negative) POC Ur Glucose (UA) Negative (Negative) POC Urine Ketones Negative (Negative) POC Urine Blood Trace (Negative) POC Urine Nitrite Negative (Negative) POC Urine Bilirubin Negative (Negative) POC Urine Urobilinogen 0.2 POC U Leukocyte Esteras 2+ (Negative) Discharge Plan Discharge Clinical Impression: Urinary tract infection Patient Disposition: Home, Self-Care Condition: Stable Instructions: Antibiotic Form, Urinary Tract Infection in Women (ED) Additional Instructions: Take antibiotic as prescribed until gone. Take Tylenol every 6-8 hours as needed for pain. Drink at least 64 oz of water a day. Follow-up with your primary care physician if symptoms are not improving. If you have severe pain, fever, vomiting go to the ER. Patient Language: French Prescriptions: New amoxicillin-pot clavulanate [Augmentin] 500-125 mg tablet 1 tablet PO BID 5 Days Qty: 10 0RF No Action methenamine hippurate 1 gram tablet 1 g PO BID estradiol [Vagifem] 10 mcg tablet 10 mcg vaginal 2XW Qty: 24 1RF One-A-Day 50 Plus Tablet 1 tablet PO DAILY trazodone 50 mg tablet 50 mg PO QHS PRN (Reason: Sleep) lisinopril 10 mg tablet See Rx Instructions .ROUTE .COMPLEX Qty: 90 1RF Dose Instruction: TAKE 1 TABLET BY MOUTH DAILY Rx Instructions: TAKE 1 TABLET BY MOUTH DAILY Follow-up/Referrals: Jennifer Waller DO [Primary Care Provider] - Time of Disposition: 18:47
[2024-06-01 18:45] LABS: EDUAAPPEAR Cloudy; EDUABILI Negative (Negative); EDUABLOOD Trace (Negative); EDUACOLOR1 Yellow; EDUAGLUCOSE Negative (Negative); EDUAKETONE Negative (Negative); EDUALEUKO 2+ (Negative); EDUANITRATE Negative (Negative); EDUAPH 6.5; EDUAPROTEIN Negative (Negative); EDUAUROBILI 0.2
== END 2024-06-01 18:52 | disposition home or self-care (01) ==
PROVIDERS: Emergency Provider Nurse Practitioner Family; PCP Family Medicine
DX: N39.0 Urinary tract infection, site not specified (principal); B96.20 Unspecified Escherichia coli [E. coli] as the cause of diseases classified elsewhere; M19.90 Unspecified osteoarthritis, unspecified site
CPT/HCPCS: 81003; 87077; 87086; 87186; 99213; G0463

== ENCOUNTER 2024-07-10 09:15 | Emergency (ER) | payer MEDICARE, SELFPAY ==
--- NOTE | ~2024-07-10 | CT_ITS ---
History: Fall PROCEDURE: CT head without contrast. COMPARISON: 09/18/2017 TECHNIQUE: Axial imaging of the head performed from the skull base to the vertex without IV contrast. Sagittal a nd coronal reformations obtained. DLP: 605 mGy-cm FINDINGS: The ventricles are enlarged. The dilatation of the ventricles is proportional to the degree of sulcal prominence, not uncommon in the senescent brain. Decreased attenuation is identified within the periventricular white matter, likely secondary to micr ovascular ischemic disease, in a patient of this age. There is no mass, mass effect or midline shift. There is no abnormal extra-axial fluid collection or intracranial hemorrhage. Visualized paranasal sinuses are clear. The mastoid air cells are well aerated. No acute displaced fractures within the overlying cranium. Impression: No acute intracranial hemorrhage or suspicious mass effect. Reviewed, dictated and finalized at location A. Impression: No acute intracranial hemorrhage or suspicious mass effect.
--- NOTE | ~2024-07-10 | CT_ITS ---
History: Fall PROCEDURE: CT cervical spine without intravenous contrast. COMPARISON: 09/18/2017 TECHNIQUE: Multiple contiguous axial images of the cervical spine were performed without the administration of i ntravenous contrast. DLP: 119 mGy-cm FINDINGS: Preservation of the normal curvature of the cervical spine is identified. Significant degenerative disease is identified, with osteophyte formation, disc space narrowing, face t arthropathy and endplate changes. This demonstrates significant progression 2018 examination without acute fracture identified. The bilateral lung apices are unremarkable. No soft tissue abnormality is present. The airway is patent. Impression: Significant degenerative disease, demonstrating progression since 2018 examination without acute frac ture. Reviewed, dictated and finalized at location A. Impression: Significant degenerative disease, demonstrating progression since 2018 examinat ion without acute fracture.
[2024-07-10 09:16] VITALS: BP 111/59; PULSE 68; RESP 16; TEMP 36.7; O2SAT 100
--- OUTSIDE RECORDS SUMMARY | 2024-07-10 09:17 | XMS_ITS | Referral Summary ---
Author Organization [facility] Address [address] [place] [address] Care Team Providers Care Computer Typesetter Name Role Phone Jennifer Waller Primary Care Provider [phone] Encounters Date Type Department Care Team Description 04/18/2024 10:15 AM CULTURE MEDIA LABORATORY ASSISTANT - 04/18/2024 11:59 PM [facility] - Imaging [address] [place] [address] Lumbar radiculopathy Discharge Disposition: Discharge to home or self care from Last 3 Months Allergies No known active allergies Medications estradioL (VAGIFEM) 10 mcg tablet INSERT 1 TABLET VAGINALLY 2 TIMES A WEEK 3 Active lisinopriL (PRINIVIL,ZESTR IL) 10 mg tablet Take 1 tablet (10 mg total) by mouth daily 2 Active traZODone (DESYREL) 50 mg tablet Take 0.5 tablets (25 mg total) by mouth as needed for sleep Active trimethoprim (TRIMPEX) 100 mg tablet Take 1 tablet (100 mg total) by mouth nightly at bedtime. 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 Lumbar radiculitis 05/28/2022 Lumbar spinal stenosis 05/28/2022 Social History Tobacco Use Types Packs/Day Years Used Date Smoking Tobacco: Never Tobacco Cessation:Counseling Given: Not Answered Comments No Sex and Gender Information Value Date Recorded Sex Assigned at Not on file Legal Sex Female 6:53 PM CULTURE MEDIA LABORATORY ASSISTANT Gender Identity Female 11/12/2022 8:30 AM CDT Sexual Orientation Straight 11/12/2022 8: 30 AM CDT Last Filed Vital Signs Vital Sign Reading Time Taken Comments Blood Pressure 140/76 01/21/2024 3:32 PM CDT Pulse 88 01/21/2024 3:32 PM CDT Temperature 37.5 C (99.5 F) 01/21/2024 3:32 PM CDT Respiratory Rate 20 01/21/2024 3:32 PM CDT Oxygen Saturation 99% 01/21/2024 3:32 PM CDT Inhaled Oxygen Concentration - - Weight 59 kg (130 lb) 04/18/2024 10:39 AM CULTURE MEDIA LABORATORY ASSISTANT Height 157.5 cm (5' 2 ) 04/10/2023 12:49 PM CULTURE MEDIA LABORATORY ASSISTANT Body Mass Index 23.78 04/10/2023 12:49 PM CULTURE MEDIA LABORATORY ASSISTANT Plan of Treatment Not on file Procedures Procedure Name Priority Date/Time Associated Diagnosis Comments MRI LUMBAR SPINE WO CONTRAST Schedule Routine, Read Routine (OP Routine) 04/18/2024 11:24 AM CULTURE MEDIA LABORATORY ASSISTANT Lumbar radiculopathy from Last 3 Months Results * MRI Lumbar Spine WO Contrast (04/18/2024 11:24 AM CULTURE MEDIA LABORATORY ASSISTANT) Anatomical Region Laterality Modality Spine N/A Magnetic Resonan ce 04/18/2024 11:4 5 AM CULTURE MEDIA LABORATORY ASSISTANT Impressions 04/18/2024 11:45 AM CULTURE MEDIA LABORATORY ASSISTANT Lumbar degenerative disc and joint disease as described above. Electronically signed by: Jas Martin MD Narrative 04/18/2024 11:45 AM CULTURE MEDIA LABORATORY ASSISTANT EXAMINATION: Magnetic resonance imaging (MRI) of the lumbar spine without contrast HISTORY: Lumbar radiculopathy, no red flags, no prior management. TECHNIQUE: Multiplanar multi-weighted MRI of the lumbar spine was performed without intravenous contrast using the standard lumbar spine protocol. COMPARISON: None available. FINDINGS: Grade 1 stepwise L3-L5 anterolistheses. No aggressive marrow replacing osseous lesions or processes are visualized. There are no compression fractures. Multilevel degenerative disc disease. The conus medullaris terminates at the level of L1-L2. The distal spinal cord signal intensity is normal. Limited views of the abdomen and pelvis show no soft tissue abnormality. Left renal cyst. L1-2: Minimal disc bulge. Ligamentum flavum infolding. There is mild facet arthropathy. There is no neuroforaminal stenosis. There is no spinal canal stenosis. L2-3: Mild disc bulge. Ligamentum flavum infolding. There is mild facet arthropathy. There is mild right neuroforaminal stenosis. There is no spinal canal stenosis. L3-4: Anterolisthesis with partial disc uncovering. Ligamentum flavum infolding. There is moderate facet arthropathy. There is mild neuroforaminal stenosis. There is moderate spinal canal stenosis. L4-5: Anterolisthesis with partial disc uncovering. Ligamentum flavum infolding. There is severe facet arthropathy. There is moderate neuroforaminal stenosis. There is severe spinal canal stenosis. L5-S1: Mild disc bulge with superimposed small central disc extrusion with cephalad migration. No significant ligamentum flavum infolding. There is moderate facet arthropathy. There is moderate left neuroforaminal stenosis. There is no spinal canal stenosis. Procedure Note Jas Martin MD - 04/18/2024 EXAMINATION: Magnetic resonance imaging (MRI) of the lumbar spine without contrast HISTORY: Lumbar radiculopathy, no red flags, no prior management. TECHNIQUE: Multiplanar multi-weighted MRI of the lumbar spine was performed without intravenous contrast using the standard lumbar spine protocol. COMPARISON: None available. FINDINGS: Grade 1 stepwise L3-L5 anterolistheses. No aggressive marrow replacing osseous lesions or processes are visualized. There are no compression fractures. Multilevel degenerative disc disease. The conus medullaris terminates at the level of L1-L2. The distal spinal cord signal intensity is normal. Limited views of the abdomen and pelvis show no soft tissue abnormality. Left renal cyst. L1-2: Minimal disc bulge. Ligamentum flavum infolding. There is mild facet arthropathy. There is no neuroforaminal stenosis. There is no spinal canal stenosis. L2-3: Mild disc bulge. Ligamentum flavum infolding. There is mild facet arthropathy. There is mild right neuroforaminal stenosis. There is no spinal canal stenosis. L3-4: Anterolisthesis with partial disc uncovering. Ligamentum flavum infolding. There is moderate facet arthropathy. There is mild neuroforaminal stenosis. There is moderate spinal canal stenosis. L4-5: Anterolisthesis with partial disc uncovering. Ligamentum flavum infolding. There is severe facet arthropathy. There is moderate neuroforaminal stenosis. There is severe spinal canal stenosis. L5-S1: Mild disc bulge with superimposed small central disc extrusion with cephalad migration. No significant ligamentum flavum infolding. There is moderate facet arthropathy. There is moderate left neuroforaminal stenosis. There is no spinal canal stenosis. IMPRESSION: Lumbar degenerative disc and joint disease as described above. Electronically signed by: Jas Martin MD Ulises Keenan MD IMG MRI PROCEDURES F inal Result from Last 3 Months Insurance MEDICARE BLUE CROSS MEDICARE SUPPLEMENT MEDICARE [facility] MEDICARE [facility] MEDICARE SUPPLEMENT Care Teams Computer Typesetter Relationship Specialty Start Date End Date Jennifer Waller DO PCP - General Family Medicine 05/27/22
--- OUTSIDE RECORDS SUMMARY | 2024-07-10 09:17 | XMS_ITS | Clinical Summary ---
Author Organization [facility] Address [address] [place] [address] Care Team Providers Care Waste Salvager Name Role Phone Jennifer Waller Primary Care Provider Allergies No known active allergies Medications estradiol (ESTRACE) 0.1 MG/GM vaginal cream APPLY 1 GM USING FINGERTIP IN THE VAGINA 2 NIGHTS PER WEEK 3 Active lisinopril (PRINIVIL) 10 MG tablet Take 1 tablet (10 mg total) by mouth daily. 4 Active methenamine (HIPREX) 1 g tablet Take 1 tablet (1 g total) by mouth 2 (two) times daily. 4 Active naproxen (NAPROSYN) 500 MG tablet Take 1 tablet (500 mg total) by mouth 2 (two) times daily as needed. 4 Active SENNA-TIME 8.6 MG Tab tablet TAKE 1 TABLET BY MOUTH TWICE DAILY NEEDED FOR CONSTIPATION 3 Active traMADol (ULTRAM) 50 MG tablet Take 1 tablet (50 mg total) by mouth daily as needed. 4 Active traZODone (DESYREL) 50 MG tablet Take 0.5 tablets (25 mg total) by mouth. 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 Family History Medical History Relation Comments Hypertension Father Hypertension Mother Relation Status Comments Father Mother Social History Tobacco Use Types Packs/Day Years Used Date Smoking Tobacco: Never Smokeless Tobacco: Never Tobacco Cessation:Counseling Given: Not Answered Alcohol Use Standard Drinks/Week Comments Yes 0 (1 standard drink = 0.6 oz pur e alcohol) social Comments No Sex and Gender Information Value Date Recorded Sex Assigned at Not on file Legal Sex Female 1:25 PM TELEMETRY TECH Gender Identity Not on file Sexual Orientation Not on file Last Filed Vital Signs Vital Sign Reading Time Taken Comments Blood Pressure 158/63 11/18/2023 8:37 AM CDT Pulse 62 11/18/2023 8:37 AM CDT Temperature 36.8 C (98.2 F) 11/18/2023 7:24 AM CDT Respiratory Rate 18 11/18/2023 8:37 AM CDT Oxygen Saturation 100% 11/18/2023 8:37 AM CDT Inhaled Oxygen Concentration - - Weight 58.5 kg (129 lb) 11/18/2023 7:24 AM CDT Height 157.5 cm (5' 2 ) 11/18/2023 7:24 AM CDT Body Mass Index 23.59 11/18/2023 7:24 AM CDT Plan of Treatment Health Maintenance Due Date Last Done Comments Hepatitis C 1963 Annual Medicare Wellness Visit 2010 Dexa Scan (General) 2010 Pneumococcal Vaccine: 65+ Years (2 of 2 - PPSV23 or PCV20) 03/13/2016 03/13/2015, 04/13/2011 COVID-19 Vaccine ( season) 2023 12/30/2022, 09/25/2022, 01/09/2022, Additional history exists Influenza Adult (#1) 2024 12/24/2018, 01/19/2018, 03/13/2015, Additional history exists DTaP, Tdap and Td Vaccines (2 - Td or Tdap) 04/02/2032 04/02/2022 Zoster Vaccines Completed 10/28/2022, 05/14, 02/14/2013 RSV Immunization or 60+ Years Completed 12/30/2022 Meningococcal B Vaccine Aged Out No l onger eligible based on patient's age to complete this topic Meningococcal Vaccine Aged Out No jung flynn eligible based on patient's age to complete this topic RSV Immunizations Under 20 Months Aged Out No longer eligible based on patient's age to complete this topic Insurance MEDICARE [facility] Care Teams Waste Salvager Relationship Specialty Start Date End Date Jennifer Waller DO [address] [place] [address] PCP - General FAMILY PRACTICE 09/15/23
--- OUTSIDE RECORDS SUMMARY | 2024-07-10 09:17 | XMS_ITS ---
Author Organization [facility] Address [address] [facility] [place] [address] Care Team Providers Care Cementing Bulk Material Operator Name Role Phone KRISTINAONDINAJosephine TINOCOGANA Primary Care Provider Unavailab Ulises Zee Unavailable [phone] REASON FOR VISIT Post Procedure Follow Up Call Encounters Encounter Location Date Provider Diagnosis [facility] [address] [place] [address] 07/07/2024 Ulises Keenan PLAN OF TREATMENT Next Appt Details Provider Name:Ulises loredo, 07/13/2024 10:45:00 AM, [address], [place], [address],
--- OUTSIDE RECORDS SUMMARY | 2024-07-10 09:17 | XMS_ITS | Clinical Summary ---
Author Organization [facility] Address [address] [place] [address] Phone Care Team Providers Care Front Line Leader Name Role Phone Breezy Valverde MD Primary Care Provider [phone] Allergies No known active allergies Medications CALCIUM ORAL Active GLUCOSAMINE HCL/CHONDRO CHOI A (GLUCOSAMINE-CH ONDROITIN ORAL) Acti ve lisinopril (PRINIVIL) 10 mg tablet Take 10 mg by mouth daily. 10 12/02/2015 Active estradioL (VAGIFEM) 10 mcg tablet INSERT ONE TABLET IN THE VAGINA TWO TIMES PER WEEK 8 Tablet 11 11/23/2020 Active nirmatrelvir-ri tonavir (Paxlovid) 300(150mg x 2)-100 mg oral pack Take all 3 tablets from 1 blister card together, two times daily (morning and bedtime) for 5 days. 30 Each 10/30/2023 3:19 PM CDT 10/30/2023 Active Active Problems No known active problems Encounters Date Type Department Care Team Description 06/01/2024 External Device Data [facility] ABSTRACTION Provider, Abstract 05/10/2024 External Device Data [facility] ABSTRACTION Provider, Abstract 05/04/2024 External Device Data [facility] ABSTRACTION Provider, Abstract from Last 3 Months Immunizations Immunization Administration Dates Next Due (PREVNAR 13)(6 WKS UP) PNEUM OCOCCAL CONJUGATE (PCV13) 0.5 ML, IM 04/13/2011 Influenza Seasonal Unspecified Formulation IM ,01/11/2011 PREVNAR (PCV13) pneumococcal 13-valent conjugate Vaccine 03/13/2015 Family History Medical History Relation Name Comments Diabetes Grandchild karo Diabetes Maternal Grandfather Heart Disease Maternal Grandmother Hypertension Maternal Grandmother Heart Disease Mother Other Mother osteoporosis Stroke Mother Diabetes Son Relation Name Status Comments Grandchild karo Alive Maternal Grandfather Maternal Grandmother Mother Son Social History Tobacco Use Types Packs/Day Years Used Date Smoking Tobacco: Never Smokeless Tobacco: Never Alcohol Use Standard Drinks/Week Comments Yes 0 (1 standard drink = 0.6 oz pur e alcohol) socially Comments No Sex and Gender Information Value Date Recorded Sex Assigned at Not on file Legal Sex Female 6:03 AM NEUROLOGY PHYSICIAN Gender Identity Not on file Sexual Orientation Not on file Occupation Industry Job Start Date Job End Date Not on file Not on file Not on file Not on file Last Filed Vital Signs Vital Sign Reading Time Taken Comments Blood Pressure 124/78 11/23/2020 1:34 PM CDT Pulse - - Temperature - - Respiratory Rate - - Oxygen Saturation - - Inhaled Oxygen Concentration - - Weight 62.6 kg (138 lb) 11/23/2020 1:34 PM CDT Height 157.5 cm (5' 2 ) 11/23/2020 1:34 PM CDT Body Mass Index 25.24 11/23/2020 1:34 PM CDT Plan of Treatment Health Maintenance Due Date Last Done Comments DTAP/TDAP/TD VACCINES (1 - Tdap) 01/24/1964 ZOSTER VACCINE (1 of 2) 1995 PNEUMOCOCCAL VACCINE 50+ YEA RS (2 of 2 - PPSV23) 03/13/2016 03/13/2015, 03/13/2015, 04/13/2011 RSV VACCINE (60+ or ) (1 - 1-dose 75+ series) 01/24/2020 INFLUENZA VACCINE (#1) 2023 03/13/2015, 2010 COLORECTAL SCREENING Discontinued 04/13/2011 Colorectal Cancer Screening Discontinued OSTEOPOROSIS SCREENING Completed , 11/06/2015, 10/12/2015, Additional history exists FIT-DNA Q 3 years Discontinued FIT/FOBT Q 1 year Discontinued Flex Sig/CT Colonography Q 5 years Discontinued Insurance MEDICARE PART A AND B BCBS BLUE ACCESS/TRUE BLUE PPO RX PRIME THERAPEUTICS Medicare Part D Care Teams Front Line Leader Relationship Specialty Start Date End Date Breezy Valverde MD [address] [place] [address] PCP - General Family Practice 03/07/19
--- OUTSIDE RECORDS SUMMARY | 2024-07-10 09:17 | XMS_ITS | Patient Health Record ---
Author Organization [facility] Address [address] [facility] [place] [address] Care Team Providers Care Client Technical Specialist Name Role Phone EDNA SUERO DO Primary Care Provider Unavailab landon GusmanUlises recio Unavailable [phone] ALLERGIES No Known Allergies REASON FOR REFERRAL No Information MEDICATIONS Medication SIG (Take, Route, Frequency, Duration) Notes Start Date End Date Status Omeprazole 20 MG TAKE 1 CAPSULE BY MOUTH DAILY Oral for 90 Active Methenamine Hippurate 1 GM TAKE 1 TABLET BY MOUTH TWICE DAILY Oral for 30 [id number],Unavail able Active traZODone HCl 50 MG Oral for 60 Active Linzess 72 MCG Oral for 30 Act julia methylPREDNISolone 4 MG as directed Orally Active Aleve 220 MG 1 tablet with food or milk as needed Orally every 12 hrs Active Tylenol 325 MG 1 tablet as needed Orally every 6 hrs Active traMADol HCl 50 MG 1 tablet as needed Orally Once a day Active Lisinopril 10 MG TAKE 1 TABLET BY MOUTH DAILY Oral for 90 Active SOCIAL HISTORY Sex Assigned At : Social History Observation Description Sex Assigned At Unknown PROBLEMS Problem Type ICD Code Onset Dates Problem Status W/U Status Risk SNOMED Code Notes Problem Chronic pain syndrome (G89.4) Active confirmed Chronic timothy n syndrome (746908791) Problem Spondylolisthesis , lumbar region (M43.16) Active confirmed Acquired spondylolisthesis (266503448) Problem Sacroiliitis, not elsewhere classified (M46.1) Active confirmed Solitary sacroiliitis (964062600) Problem Spondylosis without myelopathy or radiculopathy, lumbar region (M47.816) Active confirmed Lumbosacral spondylosis without myelopathy (08824371) Problem Spondylosis without myelopathy or radiculopathy, lumbosacral region (M47.817) Active confirmed Lumbosacral spondylosis without myelopathy (disorder) (42889076) Problem Radiculopathy, lumbar region (M54.16) Active confirmed Lumbar radiculopathy (114618739) Problem Trochanteric bursitis, left hip (M70.62) Active confirmed Trochanteric bursitis of left hip (413934025596715) Problem 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) Active confirmed Spinal stenosis of lumbar region (96492893) 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 (NSAID) (Z79.1) Active confirmed termite treater curre nt use of non-steroidal anti-inflammatory drug (785527696476868) Problem Spinal stenosis, lumbar region with neurogenic claudication (M48.062) Active confirmed Neurogenic claudication (139765492) Problem Lumbar radiculopathy (M54.16) Active confirmed Lumbar radiculopathy (359113218) Problem Other intervertebral disc degeneration, 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 Respiratory Rate 14 /min 07/06/2024 Post Op Vitals: BP 119/71, HR 63, RR 18 , Spo2 % Pain 1/10 Discharged home, ambulatory, and in no acute distress. Oximetry 99 % 07/06/2024 Post Op Vitals: BP 119/71, HR 63, RR 18 , Spo2 % Pain 1/10 Discharged home, ambulatory, and in no acute distress. Blood pressure diastolic 78 mm Hg 07/06/2024 Post Op Vitals: BP 119/71, HR 63, RR 18 , Spo2 % Pain 1/10 Discharged home, ambulatory, and in no acute distress. Height 5 ft 2 in in 07/06/2024 Post Op Vitals: BP 119/71, HR 63, RR 18 , Spo2 % Pain 1/10 Discharged home, ambulatory, and in no acute distress. Blood pressure systolic 135 mm Hg 07/06/2024 Post Op Vitals: BP 119/71, HR 63, RR 18 , Spo2 % Pain 1/10 Discharged home, ambulatory, and in no acute distress. Weight 129 lbs 07/06/2024 Post Op Vitals: BP 119/71, HR 63, RR 18 , Spo2 % Pain 1/10 Discharged home, ambulatory, and in no acute distress. BMI 23.59 kg/m2 07/06/2024 Post Op Vitals: BP 119/71, HR 63, RR 18 , Spo2 % Pain 1/10 Discharged home, ambulatory, and in no acute distress. Encounters Encounter Location Date Provider Diagnosis [facility] [address] [place] [phone] 04/07/2024 Ulises Stynowick Lumbar radiculopathy M54.16 ; Spinal stenosis, lumbar region with neurogenic claudication M48.062 ; Osseous and subluxation stenosis of intervertebral foramina of lumbar region M99.63 ; Spondylolisthesis, lumbar region M43.16 ; Other intervertebral disc degeneration, lumbar region with discogenic back pain and lower extremity pain M51.362 ; Spondylosis without myelopathy or radiculopathy, lumbar region M47.816 ; Spondylosis without myelopathy or radiculopathy, lumbosacral region M47.817 ; Sacroiliitis, not elsewhere classified M46.1 ; Trochanteric bursitis, left hip M70.62 ; Chronic pain syndrome G89.4 and alf (current) use of non-steroidal anti-inflammatories (NSAID) Z79.1 [facility] [address] [place] [phone] 04/19/2024 Ulises Stynowick Radiculopathy, lumba r region M54.16 [facility] [address] [place] [phone] 04/26/2024 Ulises Stynowick Radiculopathy, lumba r region M54.16 ; Spinal stenosis, lumbar region with neurogenic claudication M48.062 and Osseous and subluxation stenosis of intervertebral foramina of lumbar region M99.63 [facility] [address] [place] [phone] 04/27/2024 Ulises Stynowick [facility] [address] [place] [phone] 05/16/2024 Ulises Stynowick Lumbar radiculopathy M54.16 ; Sacroiliitis, not elsewhere classified M46.1 ; Spinal stenosis, lumbar region with neurogenic claudication M48.062 ; Osseous and subluxation stenosis of intervertebral foramina of lumbar region M99.63 ; Spondylolisthesis, lumbar region M43.16 ; Other intervertebral disc degeneration, lumbar region with discogenic back pain and lower extremity pain M51.362 ; Spondylosis without myelopathy or radiculopathy, lumbar region M47.816 ; Spondylosis without myelopathy or radiculopathy, lumbosacral region M47.817 ; Trochanteric bursitis, left hip M70.62 ; Chronic pain syndrome G89.4 and alf (current) use of non-steroidal anti-inflammatories (NSAID) Z79.1 [facility] [address] [place] [phone] 05/18/2024 Ulises Stynowick Sacroiliitis, not elsewhere classified M46.1 [facility] [address] [place] [phone] 05/18/2024 Ulises Stynowick Lumbar radiculopathy M54.16 ; Spinal stenosis, lumbar region with neurogenic claudication M48.062 ; Osseous and subluxation stenosis of intervertebral foramina of lumbar region M99.63 ; Spondylolisthesis, lumbar region M43.16 ; Other intervertebral disc degeneration, lumbar region with discogenic back pain and lower extremity pain M51.362 ; Spondylosis without myelopathy or radiculopathy, lumbar region M47.816 ; Spondylosis without myelopathy or radiculopathy, lumbosacral region M47.817 ; Sacroiliitis, not elsewhere classified M46.1 ; Trochanteric bursitis, left hip M70.62 ; Chronic pain syndrome G89.4 and alf (current) use of non-steroidal anti-inflammatories (NSAID) Z79.1 [facility] [address] [place] [phone] 05/19/2024 Ulises Stynowick [facility] [address] [place] [phone] 06/05/2024Terrell SUERO [facility] [address] [place] [phone] 06/06/2024 Ulises Stynowick Lumbar radiculopathy M54.16 ; Spondylosis without myelopathy or radiculopathy, lumbar region M47.816 ; Spinal stenosis, lumbar region with neurogenic claudication M48.062 ; Osseous and subluxation stenosis of intervertebral foramina of lumbar region M99.63 ; Spondylolisthesis, lumbar region M43.16 ; Other intervertebral disc degeneration, lumbar region with discogenic back pain and lower extremity pain M51.362 ; Spondylosis without myelopathy or radiculopathy, lumbosacral region M47.817 ; Sacroiliitis, not elsewhere classified M46.1 ; Trochanteric bursitis, left hip M70.62 ; Chronic pain syndrome G89.4 and 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 of non-steroidal anti-inflammatories (NSAID) Z79.1 [facility] [address] [place] [phone] 06/15/2024 Ulises Stynowick Spondylosis without myelopathy or radiculopathy, lumbar region M47.816 and Spondylosis without myelopathy or radiculopathy, lumbosacral region M47.817 [facility] [address] [place] [phone] 06/16/2024 Ulises Stynowick [facility] [address] [place] [phone] 06/22/2024 Ulises Stynowick Lumbar radiculopathy M54.16 ; Spondylosis without myelopathy or radiculopathy, lumbar region M47.816 ; Spinal stenosis, lumbar region with neurogenic claudication M48.062 ; Osseous and subluxation stenosis of intervertebral foramina of lumbar region M99.63 ; Spondylolisthesis, lumbar region M43.16 ; Other intervertebral disc degeneration, lumbar region with discogenic back pain and lower extremity pain M51.362 ; Spondylosis without myelopathy or radiculopathy, lumbosacral region M47.817 ; Sacroiliitis, not elsewhere classified M46.1 ; Trochanteric bursitis, left hip M70.62 ; Chronic pain syndrome G89.4 and 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 of non-steroidal anti-inflammatories (NSAID) Z79.1 [facility] [address] [facility] [place] [phone] 07/06/2024 Ulises Keenan Spondylosis without myelopathy or radiculopathy, lumbar region M47.816 and Spondylosis without myelopathy or radiculopathy, lumbosacral region M47.817 [facility] [address] [facility] [place] [address] 07/07/2024 Ulises Keenan ASSESSMENTS Encounter Date Diagnosis Assessment Notes Treatment Notes Treatment Clinical Notes 04/07/2024 Spinal stenosis, lumbar region with neurogenic claudication (ICD-10 - M48.062) 04/07/2024 Lumbar radiculopathy (ICD-10 - M54.16) Schedule a bilateral L4-5 transforaminal epidural steroid injection. The risks of this procedure including pain, bleeding, infection, spinal headache, persistent spinal fluid leak, epidural hematoma, nerve damage, spinal cord injury, paralysis, total spinal anesthesia resulting in cardiopulmonary arrest/, respiratory distress requiring intubation, insomnia, hyperglycemia, hair loss, muscle atrophy, skin depigmentation, weight gain, fluid retention, adrenal suppression, immunosuppression, osteoporosis resulting in fractures, avascular necrosis of the hip, cataracts, bleeding gastric ulcer, worsening pain and failure to relieve pain were discussed and the patient is agreeable to proceeding at this time. Consider a bilateral L3-4 transforaminal epidural steroid injection if the patient's pain persists. 04/19/2024 Radiculopathy, lumbar region (ICD-10 - M54.16) 04/26/2024 Radiculopathy, lumbar region (ICD-10 - M54.16) 04/26/2024 Spinal stenosis, lumbar region with neurogenic claudication (ICD-10 - M48.062) 05/16/2024 Sacroiliitis, not elsewhere classified (ICD-10 - M46.1) schedule a bilateral sacroiliac joint injection. The risks of this procedure including pain, bleeding, infection, insomnia, hyperglycemia, hair loss, muscle atrophy, skin depigmentation, weight gain, fluid retention, adrenal suppression, immunosuppression, osteoporosis resulting in fractures, avascular necrosis of the hip, cataracts, bleeding gastric ulcer, worsening pain and failure to relieve pain were discussed and the patient is agreeable to proceeding at this time. 05/16/2024 Lumbar radiculopathy (ICD-10 - M54.16) 05/18/2024 Sacroiliitis, not elsewhere classified (ICD-10 - M46.1) 05/18/2024 Lumbar radiculopathy (ICD-10 - M54.16) 06/06/2024 Spondylosis without myelopathy or radiculopathy, lumbar region (ICD-10 - M47.816) schedule a bilateral L3-5 medial branch nerve block as a diagnostic and potentially therapeutic endeavor to isolate the source of the patient's facet-generated low back pain originating from the L4-5 and L5-S1 facet joints and to ultimately perform radiofrequency ablation for more durable pain relief. The risks of this procedure including pain, bleeding, infection, nerve damage, spinal cord injury, paralysis, total spinal anesthesia resulting in cardiopulmonary arrest/, respiratory distress requiring intubation, neuritis after radiofrequency ablation, hyperglycemia, insomnia, hair loss, muscle atrophy, skin depigmentation, weight gain, fluid retention, adrenal suppression, osteoporosis resulting in fractures, avascular necrosis of the hip, cataracts, bleeding gastric ulcer, worsening pain and failure to relieve pain were discussed and the patient is agreeable to proceeding at this time. 06/06/2024 Lumbar radiculopathy (ICD-10 - M54.16) 06/15/2024 Spondylosis without myelopathy or radiculopathy, lumbar region (ICD-10 - M47.816) 06/15/2024 Spondylosis without myelopathy or radiculopathy, lumbosacral region (ICD-10 - M47.817) 07/06/2024 Spondylosis without myelopathy or radiculopathy, lumbar region (ICD-10 - M47.816) 07/06/2024 Spondylosis without myelopathy or radiculopathy, lumbosacral region (ICD-10 - M47.817) 06/22/2024 Lumbar radiculopathy (ICD-10 - M54.16) 06/06/2024 Spinal stenosis, lumbar region with neurogenic claudication (ICD-10 - M48.062) 06/22/2024 Spinal stenosis, lumbar region with neurogenic claudication (ICD-10 - M48.062) 06/22/2024 Spondylosis without myelopathy or radiculopathy, lumbar region (ICD-10 - M47.816) schedule a bilateral L3-5 medial branch nerve block as a diagnostic and potentially therapeutic endeavor to isolate the source of the patient's facet-generated low back pain originating from the L4-5 and L5-S1 facet joints and to ultimately perform radiofrequency ablation for more durable pain relief. The risks of this procedure including pain, bleeding, infection, nerve damage, spinal cord injury, paralysis, total spinal anesthesia resulting in cardiopulmonary arrest/, respiratory distress requiring intubation, neuritis after radiofrequency ablation, hyperglycemia, insomnia, hair loss, muscle atrophy, skin depigmentation, weight gain, fluid retention, adrenal suppression, osteoporosis resulting in fractures, avascular necrosis of the hip, cataracts, bleeding gastric ulcer, worsening pain and failure to relieve pain were discussed and the patient is agreeable to proceeding at this time. 05/16/2024 Spinal stenosis, lumbar region with neurogenic claudication (ICD-10 - M48.062) 05/18/2024 Spinal stenosis, lumbar region with neurogenic claudication (ICD-10 - M48.062) 04/26/2024 Osseous and subluxation stenosis of intervertebral foramina of lumbar region (ICD-10 - M99.63) 04/07/2024 Osseous and subluxation stenosis of intervertebral foramina of lumbar region (ICD-10 - M99.63) 04/07/2024 Spondylolisthesis, lumbar region (ICD-10 - M43.16) 05/18/2024 Osseous and subluxation stenosis of intervertebral foramina of lumbar region (ICD-10 - M99.63) 05/16/2024 Osseous and subluxation stenosis of intervertebral foramina of lumbar region (ICD-10 - M99.63) 06/06/2024 Osseous and subluxation stenosis of intervertebral foramina of lumbar region (ICD-10 - M99.63) 06/22/2024 Osseous and subluxation stenosis of intervertebral foramina of lumbar region (ICD-10 - M99.63) 06/06/2024 Spondylolisthesis, lumbar region (ICD-10 - M43.16) 06/22/2024 Spondylolisthesis, lumbar region (ICD-10 - M43.16) 05/16/2024 Spondylolisthesis, lumbar region (ICD-10 - M43.16) 05/18/2024 Spondylolisthesis, lumbar region (ICD-10 - M43.16) 04/07/2024 Other intervertebral disc degeneration, lumbar region with discogenic back pain and lower extremity pain (ICD-10 - M51.362) 04/07/2024 Spondylosis without myelopathy or radiculopathy, lumbar region (ICD-10 - M47.816) If the patient's axial low back pain persists after the above, schedule a bilateral L3-5 medial branch nerve block as a diagnostic and potentially therapeutic endeavor to isolate the source of the patient's facet-generated low back pain originating from the L4-5 and L5-S1 facet joints and to ultimately perform radiofrequency ablation for more durable pain relief. The risks of this procedure including pain, bleeding, infection, nerve damage, spinal cord injury, paralysis, total spinal anesthesia resulting in cardiopulmonary arrest/, respiratory distress requiring intubation, neuritis after radiofrequency ablation, hyperglycemia, insomnia, hair loss, muscle atrophy, skin depigmentation, weight gain, fluid retention, adrenal suppression, osteoporosis resulting in fractures, avascular necrosis of the hip, cataracts, bleeding gastric ulcer, worsening pain and failure to relieve pain were discussed and the patient is agreeable to proceeding at this time. 05/16/2024 Other intervertebral disc degeneration, lumbar region with discogenic back pain and lower extremity pain (ICD-10 - M51.362) 06/06/2024 Other intervertebral disc degeneration, lumbar region with discogenic back pain and lower extremity pain (ICD-10 - M51.362) 05/18/2024 Other intervertebral disc degeneration, lumbar region with discogenic back pain and lower extremity pain (ICD-10 - M51.362) 06/22/2024 Other intervertebral disc degeneration, lumbar region with discogenic back pain and lower extremity pain (ICD-10 - M51.362) 06/06/2024 Spondylosis without myelopathy or radiculopathy, lumbosacral region (ICD-10 - M47.817) 06/22/2024 Spondylosis without myelopathy or radiculopathy, lumbosacral region (ICD-10 - M47.817) 05/18/2024 Spondylosis without myelopathy or radiculopathy, lumbar region (ICD-10 - M47.816) 04/07/2024 Spondylosis without myelopathy or radiculopathy, lumbosacral region (ICD-10 - M47.817) 05/16/2024 Spondylosis without myelopathy or radiculopathy, lumbar region (ICD-10 - M47.816) 05/16/2024 Spondylosis without myelopathy or radiculopathy, lumbosacral region (ICD-10 - M47.817) 04/07/2024 Sacroiliitis, not elsewhere classified (ICD-10 - M46.1) If the patient's lumbosacral and perisacral pain fails to improve with the above, schedule a bilateral sacroiliac joint injection. The risks of this procedure including pain, bleeding, infection, insomnia, hyperglycemia, hair loss, muscle atrophy, skin depigmentation, weight gain, fluid retention, adrenal suppression, immunosuppression, osteoporosis resulting in fractures, avascular necrosis of the hip, cataracts, bleeding gastric ulcer, worsening pain and failure to relieve pain were discussed and the patient is agreeable to proceeding at this time. 05/18/2024 Spondylosis without myelopathy or radiculopathy, lumbosacral region (ICD-10 - M47.817) 06/22/2024 Sacroiliitis, not elsewhere classified (ICD-10 - M46.1) 06/06/2024 Sacroiliitis, not elsewhere classified (ICD-10 - M46.1) 06/06/2024 Trochanteric bursitis, left hip (ICD-10 - M70.62) 06/22/2024 Trochanteric bursitis, left hip (ICD-10 - M70.62) 05/18/2024 Sacroiliitis, not elsewhere classified (ICD-10 - M46.1) 04/07/2024 Trochanteric bursitis, left hip (ICD-10 - M70.62) 05/16/2024 Trochanteric bursitis, left hip (ICD-10 - M70.62) 05/16/2024 Chronic pain syndrome (ICD-10 - G89.4) 05/18/2024 Trochanteric bursitis, left hip (ICD-10 - M70.62) 04/07/2024 Chronic pain syndrome (ICD-10 - G89.4) 06/22/2024 Chronic pain syndrome (ICD-10 - G89.4) 06/06/2024 Chronic pain syndrome (ICD-10 - G89.4) 06/06/2024 alf (current) use of non-steroidal anti-inflammatories (NSAID) (ICD-10 - Z79.1) 06/22/2024 alf (current) use of non-steroidal anti-inflammatories (NSAID) (ICD-10 - Z79.1) 05/16/2024 alf (current) use of non-steroidal anti-inflammatories (NSAID) (ICD-10 - Z79.1) 05/18/2024 Chronic pain syndrome (ICD-10 - G89.4) 04/07/2024 alf (current) use of non-steroidal anti-inflammatories (NSAID) (ICD-10 - Z79.1) The patient was instructed to discontinue NSAIDs for 4 days prior to any future epidural injections. 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 Obtain informed consent: under fluoroscopy. Monitor pulse, blood pressure and SaO2 before, after and as needed during procedure. Verify if the patient is currently taking blood thinner. Verify patients is not currently on antibiotics for infection. Patient may drive home. CARE PLAN: Knowledge deficit: Will verbalize understanding of the proposed procedure, including risk of electrical burn, complications and benefits of the procedure? Will the patient exhibit understanding of the discharge instructions? Safety: The potential for injury related to surgery was assessed; Fire risk score determined, test completed if applicable. Risk for injury related to wrong patient, site, procedure. TIME OUT for safety of patient and includes patient name, , procedure site, side, level, allergies, blood thinners, antibiotics, surgical counts, consents correct and signed etc. Risk for infection: Implements aseptic technique, protects from cross-contamination, performs skin preparations. Pain/Discomfort: Patient verbalizes acceptable level of pain relief prior to discharge and the ability to engage in desired activity. I HAVE REVIEWED THE PATIENT'S MEDICATION LIST AND HAVE RECONCILED THE ABOVE MEDICATIONS. PATIENT GOALS AND SAFETY CONCERNS HAVE BEEN ADDRESSED. RN initials 04/26/2024 Other The patient voiced understanding of the treatment plan and all questions were addressed. Obtain informed consent: Bilateral Lumbar 4-5 Transforaminal Epidural Steroid Injection under fluoroscopy. Monitor pulse, blood pressure and SaO2 before, after and as needed during procedure. Verify if the patient is currently taking blood thinner. Verify patients is not currently on antibiotics for infection. Patient may drive home. CARE PLAN: Knowledge deficit: Will verbalize understanding of the proposed procedure, including risk of electrical burn, complications and benefits of the procedure? Will the patient exhibit understanding of the discharge instructions? Safety: The potential for injury related to surgery was assessed; Fire risk score determined, test completed if applicable. Risk for injury related to wrong patient, site, procedure. TIME OUT for safety of patient and includes patient name, , procedure site, side, level, allergies, blood thinners, antibiotics, surgical counts, consents correct and signed etc. Risk for infection: Implements aseptic technique, protects from cross-contamination, performs skin preparations. Pain/Discomfort: Patient verbalizes acceptable level of pain relief prior to discharge and the ability to engage in desired activity. I HAVE REVIEWED THE PATIENT'S MEDICATION LIST AND HAVE RECONCILED THE ABOVE MEDICATIONS. PATIENT GOALS AND SAFETY CONCERNS HAVE BEEN ADDRESSED. RN initials JE. 05/16/2024 Other The above-named patient was evaluated in conjunction with Dr. Keenan. I have discussed and reviewed all of the pertinent history, physical examination findings and diagnostic imaging results with him. As a result of our discussion, Dr. Keenan has determined the above assessment and directed the treatment plan. This note was dictated using voice recognition software and therefore inadvertent errors may have occurred. This note was dictated by AURA Khan. Total Time Spent with Patient and Medical Decision Makin minutes 05/18/2024 Other The patient voiced understanding of the treatment plan and all questions were addressed. Obtain informed consent: Bilateral Diagnostic Sacroiliac Joint Injection under fluoroscopy. Monitor pulse, blood pressure and SaO2 before, after and as needed during procedure. Verify if the patient is currently taking blood thinner. Verify patients is not currently on antibiotics for infection. Patient may drive home. CARE PLAN: Knowledge deficit: Will verbalize understanding of the proposed procedure, including risk of electrical burn, complications and benefits of the procedure? Will the patient exhibit understanding of the discharge instructions? Safety: The potential for injury related to surgery was assessed; Fire risk score determined, test completed if applicable. Risk for injury related to wrong patient, site, procedure. TIME OUT for safety of patient and includes patient name, , procedure site, side, level, allergies, blood thinners, antibiotics, surgical counts, consents correct and signed etc. Risk for infection: Implements aseptic technique, protects from cross-contamination, performs skin preparations. Pain/Discomfort: Patient verbalizes acceptable level of pain relief prior to discharge and the ability to engage in desired activity. I HAVE REVIEWED THE PATIENT'S MEDICATION LIST AND HAVE RECONCILED THE ABOVE MEDICATIONS. PATIENT GOALS AND SAFETY CONCERNS HAVE BEEN ADDRESSED. SARAH parsonss CR. 06/06/2024 Other The above-named patient was evaluated in conjunction with Dr. Keenan. I have discussed and reviewed all of the pertinent history, physical examination findings and diagnostic imaging results with him. As a result of our discussion, Dr. Keenan has determined the above assessment and directed the treatment plan. This note was dictated using voice recognition software and therefore inadvertent errors may have occurred. This note was dictated by AURA Khan. Total Time Spent with Patient and Medical Decision Makin minutes 06/15/2024 Other The patient voiced understanding of the treatment plan and all questions were addressed. Obtain informed consent: Bilateral Lumbar 3-5 Medial Branch Nerve Block under fluoroscopy. Monitor pulse, blood pressure and SaO2 before, after and as needed during procedure. Verify if the patient is currently taking blood thinner. Verify patients is not currently on antibiotics for infection. Patient may drive home. CARE PLAN: Knowledge deficit: Will verbalize understanding of the proposed procedure, including risk of electrical burn, complications and benefits of the procedure? Will the patient exhibit understanding of the discharge instructions? Safety: The potential for injury related to surgery was assessed; Fire risk score determined, test completed if applicable. Risk for injury related to wrong patient, site, procedure. TIME OUT for safety of patient and includes patient name, , procedure site, side, level, allergies, blood thinners, antibiotics, surgical counts, consents correct and signed etc. Risk for infection: Implements aseptic technique, protects from cross-contamination, performs skin preparations. Pain/Discomfort: Patient verbalizes acceptable level of pain relief prior to discharge and the ability to engage in desired activity. I HAVE REVIEWED THE PATIENT'S MEDICATION LIST AND HAVE RECONCILED THE ABOVE MEDICATIONS. PATIENT GOALS AND SAFETY CONCERNS HAVE BEEN ADDRESSED. SARAH VIZCAINO. 06/22/2024 Other The above-named patient was evaluated in conjunction with Dr. Keenan. I have discussed and reviewed all of the pertinent history, physical examination findings and diagnostic imaging results with him. As a result of our discussion, Dr. Keenan has determined the above assessment and directed the treatment plan. This note was dictated using voice recognition software and therefore inadvertent errors may have occurred. This note was dictated by AURA Khan. Total Time Spent with Patient and Medical Decision Makin minutes 07/06/2024 Other The patient voiced understanding of the treatment plan and all questions were addressed. Obtain informed consent: Bilateral Lumbar 3-5 Medial Branch Nerve Block under fluoroscopy. Monitor pulse, blood pressure and SaO2 before, after and as needed during procedure. Verify if the patient is currently taking blood thinner. Verify patients is not currently on antibiotics for infection. Patient may drive home. CARE PLAN: Knowledge deficit: Will verbalize understanding of the proposed procedure, including risk of electrical burn, complications and benefits of the procedure? Will the patient exhibit understanding of the discharge instructions? Safety: The potential for injury related to surgery was assessed; Fire risk score determined, test completed if applicable. Risk for injury related to wrong patient, site, procedure. TIME OUT for safety of patient and includes patient name, , procedure site, side, level, allergies, blood thinners, antibiotics, surgical counts, consents correct and signed etc. Risk for infection: Implements aseptic technique, protects from cross-contamination, performs skin preparations. Pain/Discomfort: Patient verbalizes acceptable level of pain relief prior to discharge and the ability to engage in desired activity. I HAVE REVIEWED THE PATIENT'S MEDICATION LIST AND HAVE RECONCILED THE ABOVE MEDICATIONS. PATIENT GOALS AND SAFETY CONCERNS HAVE BEEN ADDRESSED. SARAH FELIX PLAN OF TREATMENT Pending Test Test Name Order Date MRI : Lumbar Spine without contrast ([id number]) 04/07/2024 Next Appt Details Provider Name:Ulises loredo, 07/13/2024 10:45:00 AM, [address], [place], [address], Insurance Providers Payer Name Payer Address Payer Phone Subscriber Number Group Number Insured Name Patient Relationship to Insured Coverage Start Date Coverage End Date Medicare [place] [address] [address] [place] [address] [id number] JENNIFER TURNER Self - patient is the insured [facility] [address] [address] [place]RISTHIAN ZAMUDIO [phone] [id number] JENNIFER TURNER Self - patient is the insured MEDICAL (GENERAL) HISTORY Medical History History ICD Code Hypertension Surgical History Surgery Date(Month/Year)
--- OUTSIDE RECORDS SUMMARY | 2024-07-10 09:17 | XMS_ITS ---
Author Organization [facility] Address [address] [place] [address] [place] [address] Care Team Providers Care Evp Marketing Name Role Phone KRISTINAONDINAJosephine EDNA TINOCO Primary Care Provider Unavailab navarrete Ulises Keenan Unavailable [phone] ALLERGIES No Known Allergies REASON FOR VISIT Follow Up, Right > Left Low Back Pain, Right = Left Lower Extremity Pain MEDICATIONS Medication SIG (Take, Route, Frequency, Duration) Notes Start Date End Date Status methylPREDNISolone 4 MG as directed Orally Active Linzess 72 MCG Oral for 30 Act julia traZODone HCl 50 MG Oral for 60 Active Methenamine Hippurate 1 GM TAKE 1 TABLET BY MOUTH TWICE DAILY Oral for 30 N3020,Unavail able Active Omeprazole 20 MG TAKE 1 CAPSULE BY MOUTH DAILY Oral for 90 Active Tylenol 325 MG 1 tablet as needed Orally every 6 hrs Active Aleve 220 MG 1 tablet with food or milk as needed Orally every 12 hrs Active Lisinopril 10 MG TAKE 1 TABLET BY MOUTH DAILY Oral for 90 Active traMADol HCl 50 MG 1 tablet as needed Orally Once a day Active SOCIAL HISTORY Tobacco Use: Social History Observation Description Date Details (start date - stop date) Never Smoker NA - NA Sex Assigned At : Social History Observation Description Sex Assigned At Unknown Tobacco Use/Smoking Question Answer Notes Are you a nonsmoker VITAL SIGNS Blood pressure systolic 141 mm Hg 06/23/19 25 Blood pressure diastolic 79 mm Hg 025 Heart Rate 76 /min 06/22/2024 Respiratory Rate 18 /min 06/22/2024 Height 5 ft 2 in in 06/22/2024 Weight 129 lbs 06/22/2024 BMI 23.59 kg/m2 06/22/2024 Encounters Encounter Location Date Provider Diagnosis [facility] [address] [facility] [place] [address] 06/22/2024 Ulises Keenan Lumbar radiculopathy M54.16 ; Spondylosis without myelopathy [...] M70.62 ; Chronic pain syndrome G89.4 and penitentiary (current) use of non-steroidal anti-inflammatories (NSAID) Z79.1 ASSESSMENTS Encounter Date Diagnosis Assessment Notes Treatment Notes Treatment Clinical Notes 06/22/2024 Lumbar radiculopathy (ICD-10 - M54.16) 06/22/2024 Spondylosis without myelopathy or radiculopathy, lumbar [...] is agreeable to proceeding at this time. 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 Other The above-named patient was evaluated in [...] with Patient and Medical Decision Makin minutes Next Appt Details Follow Up: bilateral L3-5 MB NB, Reason: Provider Name:Ulises Nunez Shanthi natalybishnu, 07/13/2024 10:45:00 AM, [address] [place], [address], Progress Notes * Examination Category Sub-Category Detail Notes Examination/ Pre-Anesthesia Assessment General: The patient is alert and malcolm ented X 3 in moderate distress secondary to pain HEENT: Normocephalic, atrau matic. PERRL. The oropharynx is clear Neck: There is full range of motion of the cervical spine Heart: Regular rate and rhy thm Chest: Clear to auscultatio n bilaterally Abdomen: Soft and benign with normal bowel sounds throughout Musculoskeletal and Extremities: There i s tenderness to palpation over the bilateral L2-3 through L5-S1 facet joints. Extension and lateral rotation of the lumbar spine reproduces the patient's typical axial low back pain. Raul's, [place]'s and Gaenslen's are positive bilaterally. There is tenderness to palpation over the bilateral sacroiliac joints and left greater trochanter. There is tenderness to palpation over the bilateral lumbar paraspinal muscles Neurological: There is positive st raight leg raising bilaterally. There are no focal strength deficits in the bilateral upper and lower extremities Skin: Clean, dry and intac t Psychiatric: Mood and affect are normal History and Physical Notes * HPI (History of Present Illness) Category Sub-Category Detail Notes Pain Management Radiographic Imaging An MRI lumbar spine done on 10/16/17 demonstrates a grade 1 anterolisthesis of L3 on L4 and L4 on L5. There is DDD and bilateral facet arthropathy at the lower 3 levels of the lumbar spine. At L3-4 there is posterior disc bulging and in combination with the anterolisthesis as well as facet and ligament hypertrophy there is moderate central canal and bilateral foraminal stenosis. At L4-5 in combination with the anterolisthesis, a posterior disc bulge as well as ligament and facet hypertrophy there is severe central canal and bilateral foraminal stenosis. At L5-S1 there is mild left foraminal stenosis. A flexion-extension x-rays of the lumbar spine done on 04/17/23 demonstrates a grade 1 anterolisthesis of L4 on L5 which increases from 6 mm at neutral to 10 mm in flexion. A left hip x-ray done on 04/17/23 demonstrates mild left hip osteoarthritis Assessment and Follow-up: Follow-up Plan documen coreen:: Yes [facility] Quality 2020: [facility] Documented:: Compliant
--- OUTSIDE RECORDS SUMMARY | 2024-07-10 09:17 | XMS_ITS | Clinical Summary ---
Author Organization [facility] Address [address] [place] [address] Care Team Providers Care De Alcoholizer Name Role Phone Jennifer Waller DO Primary Care Provider [phone] Allergies No known active allergies Medications estradioL [...] BY MOUTH DAILY NEEDED FOR MUSCLE SPASM 4 Active methenamine (HIPREX) 1 gram tablet Take 1 tablet (1,000 mg total) by mouth 2 (two) times a day Active Active Problems Problem Noted Date Diagnosed Date Sacroiliitis 09/23/2023 Trochanteric bursitis of left hip 04/16/2023 Greater trochanteric bursitis of left hip 2023 Spondylosis of lumbar region without myelopathy or radiculopathy 05/28/2022 Lumbar radiculitis 05/28/2022 Lumbar spinal stenosis 05/28/2022 Encounters Date Type Department Care Team Description 04/18/2024 10:15 AM CONSULTING MARINE ENGINEER - 04/18/2024 11:59 PM CONSULTING MARINE ENGINEER Hospital Encounter [facility] - Imaging [address] [place] [address] Lumbar radiculopathy Discharge Disposition: Discharge to home or self care from Last 3 Months Surgical History Surgery Date Site/Laterality Comments [place] SLING OPERATION STRESS INCONTINENCE Vaginal Sling Operation For Stress Incontinence - s/p fascial sling 1997 and TVT 04/13. (Added by SEAN Conv) TONSILLECTOMY 04/13/1949 - 04/12/1950 Bilateral BLADDER REPAIR 04/13/1994 - 04/12/1995 Medical History Medical History Date Comments Personal history of arthritis Os teoarthritis - (Added by SEAN Conv) Social History Tobacco Use Types Packs/Day Years Used Date Smoking Tobacco: Never Tobacco Cessation:Counseling Given: Not Answered Comments No Sex and Gender Information Value Date Recorded Sex Assigned at Not on file Legal Sex Female 6:53 PM CONSULTING MARINE ENGINEER Gender Identity Female 11/12/2022 8:30 AM CDT Sexual Orientation Straight 11/12/2022 8: 30 AM CDT Obstetrics History Last Filed Vital Signs Vital Sign Reading Time Taken Comments Blood Pressure 140/76 01/21/2024 3:32 PM CDT Pulse 88 01/21/2024 3:32 PM CDT Temperature 37.5 C (99.5 F) 01/21/2024 3:32 PM CDT Respiratory Rate 20 01/21/2024 3:32 PM CDT Oxygen Saturation 99% 01/21/2024 3:32 PM CDT Inhaled Oxygen Concentration - - Weight 59 kg (130 lb) 04/18/2024 10:39 AM CONSULTING MARINE ENGINEER Height 157.5 cm (5' 2 ) 04/10/2023 12:49 PM CONSULTING MARINE ENGINEER Body Mass Index 23.78 04/10/2023 12:49 PM CONSULTING MARINE ENGINEER Plan of Treatment Health Maintenance Due Date Last Done Comments Depression Screening 1945 Hepatitis C Screening 1945 Osteoporosis Screening-Bone Density Scan 1945 Hepatitis B Screening 1963 Well Visit 65+ 2010 Zoster Vaccine (2 of 3) 04/11/2013 02/14/2013 Pneumococcal vaccine 65+ (2 of 2 - PPSV23) 03/13/2016 03/13/2015, 04/13/2011 Covid-19 Vaccine (6 - 2023-2 5 season) 2023 01/09/2022, 07/17/2021, 02/08/2021, Additional history exists Influenza Vaccine (#1) 2023 2, 01/16/2021, 12/25/2019, Additional history exists Fall Risk Assessment 10/25/2024 10/26/2023 DTaP/Tdap/Td Vaccine (2 - Td or Tdap) 04/02/2032 04/02/2022 Procedures Procedure Name Priority Date/Time Associated Diagnosis Comments MRI LUMBAR SPINE WO CONTRAST Schedule Routine, Read Routine (OP Routine) 04/18/2024 11:24 AM CONSULTING MARINE ENGINEER Lumbar radiculopathy from Last 3 Months Results * MRI Lumbar Spine WO Contrast (04/18/2024 11:24 AM CONSULTING MARINE ENGINEER) Anatomical Region Laterality Modality Spine N/A Magnetic Resonan ce 04/18/2024 11:4 5 AM CONSULTING MARINE ENGINEER Impressions 04/18/2024 11:45 AM CONSULTING MARINE ENGINEER Lumbar degenerative disc and joint disease as described above. Electronically signed by: MD Abida Strong 04/18/2024 11:45 AM CONSULTING MARINE ENGINEER EXAMINATION: Magnetic resonance imaging (MRI) of the [...] Result from Last 3 Months Insurance MEDICARE [facility] MEDICARE SUPPLEMENT MEDICARE [facility] MEDICARE [facility] MEDICARE SUPPLEMENT Care Teams De Alcoholizer Relationship Specialty Start Date End Date Jennifer Waller DO PCP - General Family Medicine 05/27/22
--- OUTSIDE RECORDS SUMMARY | 2024-07-10 09:17 | XMS_ITS ---
Author Organization [facility] Address [address] [place] [address] [place] [address] Care Team Providers Care Dressing Room Porter Name Role Phone KRISTINAONDINAJosephine TINOCO EDNA Primary Care Provider Unavailab landon Ulises Keenan Unavailable [phone] REASON FOR VISIT Right > Left Low Back Pain MEDICATIONS Medication SIG (Take, Route, Frequency, [...] BY MOUTH DAILY Oral for 90 Active VITAL SIGNS Blood pressure systolic 135 mm Hg 07/07/19 25 Blood pressure diastolic 78 mm Hg 025 Heart Rate 72 /min 07/06/2024 Respiratory Rate 14 /min 07/06/2024 Height 5 ft 2 in in 07/06/2024 Weight 129 lbs 07/06/2024 BMI 23.59 kg/m2 07/06/2024 Oximetry 99 % 07/06/2024 Post Op Vitals: BP 119/71, H R 63, RR 18 , Spo2 %Pain 1/10Discharged home, ambulatory, and in no acute distress. 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 RN initials _JE PLAN OF TREATMENT Treatment Notes Assessment Notes Other The patient voiced understanding of the [...] SAFETY CONCERNS HAVE BEEN ADDRESSED. RN initials _JE Next Appt Details Follow Up: Sched Bilat L3-5 RFA, Reason: Provider Name:Ulises loredo, 07/13/2024 10:45:00 AM, [address] [place], [address], Procedure Notes * Category Sub-Category Detail Notes L3-5 Medial Branch Nerve Block Under Fluroscopy Location Bilateral Anesthesia Local without IV sed ation Operative Technique: After the risks, be nefits, alternative treatment options and potential complications related to the procedure were discussed, informed consent was obtained. The specific risks of this procedure including pain, bleeding, [...] is agreeable to proceeding at this time. The patient was placed in the prone position on the fluoroscopy table. Standard ASA monitors were applied. The back was prepped and draped in the usual sterile fashion with chlorhexidine 2%/IPA 70%. The bilateral L4 and L5 pedicles as well as the junction of the superior articular process of S1 and the sacral ala were identified with x-ray using an AP view. A 25 gauge 3.5 inch spinal needle was inserted in a gun barrel fashion to the junction of the superior articular process and transverse process at the upper outer quadrant of the pedicle until periosteum was contacted at each level bilaterally. 3 mL of 0.25% Preservative-Free bupivacaine was drawn up. After negative aspiration for blood, air or CSF, 0.5 mL of this solution was injected at each level, blocking the bilateral L3 and L4 medial branch nerves. The bilateral L5 dorsal rami were blocked at the junction of the superior articular process of S1 and the sacral ala in the same fashion. The needles were then removed, the skin was cleaned and band-aids were placed over the puncture sites. The patient tolerated the procedure well, was able to ambulate without difficulty and was monitored for 20 minutes. The patient remained hemodynamically and neurologically stable. No complications were observed. The patient noted a 100% reduction in her typical back pain associated with extension and lateral rotation of the lumbar spine. Postoperative instructions were reviewed with the patient. The patient was discharged home in good condition with a refrigerated national truck driver. X-ray time: 10 seconds Safe Surgery Practices First Critical Point Aminah ent identified by verbal and ID band. Surgical site marked. Assessement of allergies, airway and aspiration risk. Assessed if patient is on anticoagulant. Operataive Consent signed. Patient has discussed procedure with physician JENNIFER GUILLEN 07/06/2024 9:45:55 AM > Second Critical Point TIME OUT: Confirm patient identity, procedure and surgical incision site. Patient in proper position and safety straps placed appropriately. ASA score: _2_ Fire Risk Score:_1_ . Alcohol based prep solution had significant time for fumes to dissipate. Confirm surgical team assembler and roles. Anticipated critical events. Essential imaging displayed as appropriate. Fluoroscopy precautions taken if applicable. Equipment and supplies in room. Verify patient is not if applicable JENNIFER GUILLEN 07/06/2024 9:45:55 AM > Third Critical Point SAFE SURGERY PRACTI YURIY-POST: Complete count of surgical instruments and accessories. Identify kelly patient concerns for recovery and management of the patient. Patient remains free from injury related to surgery. The patient tolerated the procedure well and there were no complications. The patient was taken to the recovery area. The patient remained in stable condition with no apparent complications. Vital signs stable. Injection/procedure/surgical site clean, dry and intact. Post procedure discharge instructions were give to the patient and a follow up appointment was confirmed. The patient was discharged with information on how to reach the clinic at anytime for questions or concerns. Patient discharged ambulatory. Patient denies complaints or questions JENNIFER GUILLEN 07/06/2024 10:37:55 AM > Progress Notes * Examination Category Sub-Category Detail [...] patient's typical axial low back pain. Raul's, [place]'s and Gaenslen's are positive bilaterally. There is [...] hip osteoarthritis Assessment and Follow-up: Follow-up Plan meli coreen:: Yes [facility] Quality 2020: [facility] Documented:: Compliant
--- NOTE | 2024-07-10 12:01 | ECG_ITS ---
Test Date: 2024-07-10 12:08:14 Measurements Intervals [place] Rate: 66 P: 11 CA: 167 QRS: 23 QRSD: 89 T: 44 QT: 391 QTc: 412 Interpretive Statements SINUS RHYTHM NORMAL ECG No previous ECG available for comparison Electronically Signed On 07-10-2024 14:24:28 CDT by Estevan Canela M.D.
[2024-07-10 12:08] VITALS: BP 126/61; PULSE 69; RESP 18; O2SAT 100
--- NOTE | 2024-07-10 12:22 | ED.FALL ---
HPI - Fall General Chief Complaint: Fall Stated Complaint: fall Time Seen by Provider: 07/10/24 12:07 History of Present Illness HPI Narrative: 79-year-old female presenting to the emergency department after a fall at home with his sustained head laceration. She was recently diagnosed with a sinus infection and prescribed Amoxicillin for IV antibiotics. she states that she woke up today not feeling well, feeling hot and flushed. She felt like the color was draining out of her face and she loss consciousness wall making breakfast. She fell onto her side and has a small laceration to her occipital scalp on that right side. Endorses loss of consciousness briefly. She is presently awake alert oriented, not any acute distress. She states she just does not feel right but otherwise has specific complaints. she states her tetanus is up-to-date and she is denying any headache, vision changes, neck pain. No anticoagulation use. No history of seizure disorder. Her daughter is accompanying her at bedside for collateral formation. Patient has no symptoms at this time such as nausea, vomiting, chest pain, shortness a breath, abdominal pain, back pain. She is moving all extremities and able to ambulate. Related Data Home Medications ?Medication ?Instructions ?Recorded ?Confirmed ?Last Taken ?Type geriatric multivitamin-min 1 tablet PO DAILY 11/19/20 07/07/24 11/25/20 History methenamine hippurate 1 gram tablet 1 g PO BID 11/19/23 07/07/24 Unknown History Allergies Allergy/AdvReac Type Severity Reaction Status Date / Time alendronate sodium (From AdvReac Severe joint Verified 07/07/24 13:55 Fosamax) stiffness ciprofloxacin AdvReac Unknown Nausea Verified 07/07/24 13:55 Review of Systems Review of Systems: As reviewed above in HPI [facility] Past Medical History Medical History Body mass index [BMI] 24.0-24.9, adult (12/03/18) UTI (urinary tract infection), bacterial Urine frequency URI, acute Trigger middle finger of right hand Sciatica of right side Recurrent cystitis Post-menopause Pain in joint involving lower leg Other spondylosis with radiculopathy, lumbar region Nocturia Liver disease, unspecified Hematuria, unspecified Encounter for immunization (01/19/18) Elevated blood pressure reading without diagnosis of hypertension Dysuria Constipation in female Breast cancer screening Bacterial vaginosis Allergy to insect bites Age related osteoporosis Arthritis Hepatitis C antibody test negative (10/24/16) Surgical History Surgical History Ovarian cyst 1998 Dr. Greene H/O colonoscopy Family History Family History Grandparent Family history of premature coronary heart disease Diabetes mellitus Hypertension Cerebrovascular accident Family history of coronary artery disease Father Hypertension Family history of congestive heart failure Mother Hypertension Son Diabetes mellitus Other Arthritis Social History Social History Smoking status: Never smoker Alcohol intake: current Alcohol use details: occasionally Substance use: never Substance use type: does not use Lack of Transportation: No Lack of Food: Never True Current Housing: I Have Housing Concerned About Future Housing: No Difficulty Paying Gas/Electric Bills: No Difficulty Paying for Meds: No Currently Unemployed: No Education: Associate Degree Difficulty w/ Childcare or Family Care: No Living arrangements: with family Additional living arrangements comments: lives with spouse Kiran Occupation/Education: retired Gender identity (if verbalized by the patient): Female Sexual Orientation (if Verbalized by the Patient): Straight or Heterosexual Spiritual care concerns: No Exam Narrative: GENERAL: [Well-appearing, well-nourished, and in no acute distress.] HEAD: normocephalic, posterior right-sided occipital scalp with a 3.0 cm linear laceration with no palpable Skull defect. no active bleeding. Some dried blood in the periphery. No signs of infection. EYES: [PERRLA and EOMI.] ENT: Nares clear, no rhinorrhea or epistaxis. Mucous membranes moist. NECK: Supple. CHEST: [Clear to auscultation. No respiratory distress.] HEART: [Regular rate and rhythm]. No murmur heard. [Normal peripheral pulses.] ABDOMEN: [Soft, nondistended], [nontender], [No rigidity or guarding] EXTREMITIES: Normal range of motion. [No edema.] SKIN: Warm, dry, no rash. Scalp laceration as described above NEURO: [No focal deficits]. Alert and oriented [x3.] PSYCH: [Normal mood and affect.] Course Vital Signs Vital signs: Vital Signs Temperature 36.7 C 07/10/24 09:16 Pulse Rate 68 07/10/24 09:16 Respiratory Rate 16 07/10/24 09:16 Blood Pressure 111/59 L 07/10/24 09:16 Pulse Oximetry 100 07/10/24 09:16 Temperature 36.7 C 07/10/24 09:16 Pulse Rate 69 07/10/24 12:08 Respiratory Rate 18 07/10/24 12:08 Blood Pressure 126/61 07/10/24 12:08 Pulse Oximetry 100 07/10/24 12:08 Procedures Laceration Laceration 1: Date: 07/10/24 Time: 13:28 Site: scalp Side (If applicable): right Size (cm): 3.0 Description: linear Depth: simple, single layer Local Anesthetic: lidocaine 1% Amount of anesthesia used (mL): 3 Pre-repair: wound explored and irrigated ====== Skin Level ====== Skin layer closed with: linda (Five linda) ====== Subcutaneous Layer ====== ====== Muscle Layer ====== ====== Tendon Layer ====== Dressing: clean dressing applied over top MDM - Fall MDM Narrative Medical decision making narrative: 79-year-old female presenting for a fall at home with resultant head trauma loss of consciousness. She was otherwise in her normal state of health recently aside from a sinus infection that she is currently being treated with oral antibiotics and decongestants. She states that she felt hot flushed and felt like the color was draining from her face before she passed out. No cardiac symptoms such as chest pain, chest pressure, shortness a breath, palpitations. Presently she has no focal complaints, normal vital signs, no tachycardia, fever, hypoxia blood pressure elevations or hypotension. She does have a posterior scalp laceration that will need to be repaired. She has no focal neurological findings on deficits. C-collar placed by EMS. CT of the head and CT of cervical common were obtained as well as an EKG for assessment of any dysrhythmias or ectopy. Basic laboratory studies were obtained for further delineation to see if there is any kind of organ dysfunction, dehydration, kidney disease or explanation to her syncopal event although it does sound like it could have been vasovagal mediated based on the symptoms and prodrome. Also could be related to her recent sinus infection and starting antibiotics that made her not feel well today. CT of the head CT of the cervical spine were obtained independently reviewed. No acute traumatic injuries. No intracranial process. C-collar was removed. Laboratory studies remaining. EKG nonischemic without any ectopy. She was given a fluid bolus and scalp repaired with linda. Let gel is applied for topical anesthesia. workup shows no leukocytosis or anemia. Normal platelet count. Negative troponin. Normal electrolytes, normal renal and hepatic function panel. [place] were used to close the wound, good wound approximation with no bleeding. Normal vital signs. She was re-evaluated and remained without any symptoms here in the emergency department. No recurrence of her syncope or Prodromal symptoms. She is safe and stable for discharge home at this time given her unremarkable workup. Patient was given return precautions and instructions on follow-up for staple removal. Medical Records Attestation: I reviewed the patient's medical records. Lab Data Attestation: I reviewed the patient's lab results. 07/10/24 12:33 07/10/24 12:33 Labs: Lab Results 07/10/24 Range/Units 12:33 WBC 4.0 L (4.5-10.0) K/mm3 RBC 4.27 (4.2-5.4) M/mm3 Hgb 13.9 (12.0-15.0) g/dL Hct 41.8 (37.0-47.0) % MCV 97.9 (80-100) fl MCH 32.6 (26-34) pg MCHC 33.3 (32-36) g/dl RDW 12.0 (11.5-14.5) % Plt Count 202 (150-375) k/mm3 MPV 9.0 (7.4-10.4) fl Immature Gran % (Auto) 0.2 (0-0.5) % Neut % (Auto) 77.4 H (45.5-73.1) % Lymph % (Auto) 12.1 L (18.3-44.2) % [place] % (Auto) 9.9 H (2.6-8.5) % Eos % (Auto) 0.2 (0-4.4) % Baso % (Auto) 0.2 (0.2-1.2) % Lymph # (Auto) 0.49 L (0.9-3.2) K/mm3 [place] # (Auto) 0.4 (0.1-0.6) K/mm3 Eos # (Auto) 0.0 (0-0.3) K/mm3 Baso # (Auto) 0.0 (0.0-0.1) K/mm3 Abs Immat Gran (auto) 0.01 (0.00-0.031) K/mm3 Absolute Neuts (auto) 3.1 (1.3-6.7) K/mm3 Absolute Nucleated RBC 0.000 (0.0-0.012) K/mm3 Nucleated RBC % 0.0 (0.0-0.2) % Sodium 134 L (137-145) mmol/L Potassium 3.9 (3.4-5.0) mmol/L Chloride 98 (98-107) mmol/L Carbon Dioxide 30 (22-30) mmol/L Anion Gap 6 (4-12) mmol/L BUN 20 H (7-17) mg/dL Creatinine 0.67 L (0.7-1.0) mg/dL Estim Creat Clear Calc 46 ml/min Estimated GFR > 60 (59 - ) Glucose 114 H (65-110) mg/dL Calcium 9.7 (8.4-10.2) mg/dL Magnesium 2.0 (1.6-2.3) mg/dL Total Bilirubin 0.4 (0.2-1.3) mg/dL AST 36 (14-36) U/L ALT 31 (6-35) U/L Alkaline Phosphatase 90 (38-126) U/L Troponin I < 0.012 (0.000-0.034) ng/mL Total Protein 7.0 (6.3-8.2) g/dL Albumin 4.2 (3.5-5.1) g/dL Imaging Data Attestation: I personally reviewed and interpreted this imaging study as follows: My impression: Impressions Head CT 07/10/24 10:25 Impression: No acute intracranial hemorrhage or suspicious mass effect. Cervical Spine CT 07/10/24 10:26 Impression: Significant degenerative disease, demonstrating progression since 2018 examination without acute fracture. ECG Data EKG #1: Attestation: I personally reviewed and interpreted this ECG as follows: ECG completion date: 07/10/24 ECG completion time: 12:08 Prior ECG tracings: not available for review Interpretation: No ST segment elevations, depressions or inversions. No ectopy. No dysrhythmia. QTC 419, QRS 89, [place] 167. Normal rate rhythm and axis. No previous EKG for comparison. Final interpretation normal sinus rhythm. Discharge Plan Discharge Clinical Impression: Vasovagal syncope, CHI (closed head injury), Laceration of occipital scalp Patient Disposition: Home, Self-Care Condition: Stable Instructions: Antibiotic Form, Laceration (ED), Head Injury (ED), Staple Care (ED) Additional Instructions: follow-up in 10-14 days for wound check and staple removal. Take your antibiotics for your sinus infection. Return with any new or worsening concerns at any time. Follow-up with regular doctor. Patient Language: Thai Prescriptions: No Action methenamine hippurate 1 gram tablet 1 g PO BID amoxicillin-pot clavulanate 875-125 mg tablet 1 tablet PO BID Qty: 14 0RF One-A-Day 50 Plus Tablet 1 tablet PO DAILY lisinopril 10 mg tablet See Rx Instructions .ROUTE .COMPLEX Qty: 90 1RF Dose Instruction: TAKE 1 TABLET BY MOUTH DAILY Rx Instructions: TAKE 1 TABLET BY MOUTH DAILY trazodone 50 mg tablet 50 mg PO QHS PRN (Reason: Sleep) Qty: 90 1RF Follow-up/Referrals: Jennifer Waller DO [Primary Care Provider] - Time of Disposition: 13:32
--- OUTSIDE RECORDS SUMMARY | 2024-07-10 12:26 | XMS_ITS | Clinical Summary ---
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
--- OUTSIDE RECORDS SUMMARY | 2024-07-10 12:26 | XMS_ITS | Clinical Summary ---
Author Organization [facility] Address [address] [place] [address] Care Team Providers Care Shipping Helper Name Role Phone Jennifer Waller DO Primary Care Provider [phone] Allergies No known active allergies Medications estradioL [...] Department Care Team Description 04/18/2024 10:15 AM ACCOUNT REVIEW SPECIALIST - 04/18/2024 11:59 PM ACCOUNT REVIEW SPECIALIST Hospital Encounter [facility] - Imaging [address] [place] [address] Lumbar radiculopathy Discharge Disposition: Discharge to home or self care from Last 3 Months Surgical History Surgery Date Site/Laterality Comments RI SLING OPERATION STRESS INCONTINENCE Vaginal Sling Operation [...] on file Legal Sex Female 6:53 PM ACCOUNT REVIEW SPECIALIST Gender Identity Female 11/12/2022 8:30 AM CDT [...] 59 kg (130 lb) 04/18/2024 10:39 AM ACCOUNT REVIEW SPECIALIST Height 157.5 cm (5' 2 ) 04/10/2023 12:49 PM ACCOUNT REVIEW SPECIALIST Body Mass Index 23.78 04/10/2023 12:49 PM ACCOUNT REVIEW SPECIALIST Plan of Treatment Health Maintenance Due Date [...] Read Routine (OP Routine) 04/18/2024 11:24 AM ACCOUNT REVIEW SPECIALIST Lumbar radiculopathy from Last 3 Months Results * MRI Lumbar Spine WO Contrast (04/18/2024 11:24 AM ACCOUNT REVIEW SPECIALIST) Anatomical Region Laterality Modality Spine N/A Magnetic Resonan ce 04/18/2024 11:4 5 AM ACCOUNT REVIEW SPECIALIST Impressions 04/18/2024 11:45 AM ACCOUNT REVIEW SPECIALIST Lumbar degenerative disc and joint disease as described above. Electronically signed by: MD Abida Strong 04/18/2024 11:45 AM ACCOUNT REVIEW SPECIALIST EXAMINATION: Magnetic resonance imaging (MRI) of the [...] Result from Last 3 Months Insurance MEDICARE [facility] MEDICARE SUPPLEMENT MEDICARE [facility] MEDICARE [facility] MEDICARE SUPPLEMENT Care Teams Shipping Helper Relationship Specialty Start Date End Date Jennifer Waller DO PCP - General Family Medicine 05/27/22
--- OUTSIDE RECORDS SUMMARY | 2024-07-10 12:26 | XMS_ITS | Clinical Summary ---
Author Organization 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
--- OUTSIDE RECORDS SUMMARY | 2024-07-10 12:26 | XMS_ITS | Referral Summary ---
Author Organization [facility] Address [address] [place] [address] Care Team Providers Care Transformation Manager Name Role Phone Jennifer Waller Primary Care Provider [phone] Encounters Date Type Department Care Team Description 04/18/2024 10:15 AM MANAGER LSW - 04/18/2024 11:59 PM [facility] Hospital Encounter [facility] - Imaging [address] [place] [address] Lumbar radiculopathy Discharge Disposition: Discharge [...] on file Legal Sex Female 6:53 PM MANAGER LSW Gender Identity Female 11/12/2022 8:30 AM CDT [...] 59 kg (130 lb) 04/18/2024 10:39 AM MANAGER LSW Height 157.5 cm (5' 2 ) 04/10/2023 12:49 PM MANAGER LSW Body Mass Index 23.78 04/10/2023 12:49 PM MANAGER LSW Plan of Treatment Not on file Procedures Procedure Name Priority Date/Time Associated Diagnosis Comments MRI LUMBAR SPINE WO CONTRAST Schedule Routine, Read Routine (OP Routine) 04/18/2024 11:24 AM MANAGER LSW Lumbar radiculopathy from Last 3 Months Results * MRI Lumbar Spine WO Contrast (04/18/2024 11:24 AM MANAGER LSW) Anatomical Region Laterality Modality Spine N/A Magnetic Resonan ce 04/18/2024 11:4 5 AM MANAGER LSW Impressions 04/18/2024 11:45 AM MANAGER LSW Lumbar degenerative disc and joint disease as described above. Electronically signed by: Jas Martin MD Narrative 04/18/2024 11:45 AM MANAGER LSW EXAMINATION: Magnetic resonance imaging (MRI) of the [...] Insurance MEDICARE [employer] MEDICARE SUPPLEMENT MEDICARE [facility] MEDICARE [facility] MEDICARE SUPPLEMENT Care Teams Transformation Manager Relationship Specialty Start Date End Date Jennifer Waller DO PCP - General Family Medicine 05/27/22
[2024-07-10 12:38] LABS: Basophils Percent Auto 0.2 % (0.2-1.2); Eosinophils Percent Auto 0.2 % (0-4.4); Hematocrit 41.8 % (37.0-47.0); Hemoglobin 13.9 g/dL (12.0-15.0); Immature Granulocyte Absolute 0.01 K/mm3 (0.00-0.031); Immature Granulocyte Percent A 0.2 % (0-0.5); Lymphocytes Absolute Auto 0.49 K/mm3 (0.9-3.2); Lymphocytes Percent Auto 12.1 % (18.3-44.2); Mean Corpuscular HGB Conc 33.3 g/dl (32-36); Mean Corpuscular Hemoglobin 32.6 pg (26-34); Mean Corpuscular Volume 97.9 fl (80-100); Monocytes Absolute Auto 0.4 K/mm3 (0.1-0.6); Monocytes Percent Auto 9.9 % (2.6-8.5); Neutrophils Absolute Auto 3.1 K/mm3 (1.3-6.7); Neutrophils Percent Auto 77.4 % (45.5-73.1); Platelet Count Result 202 k/mm3 (150-375); Red Blood Count 4.27 M/mm3 (4.2-5.4)
[2024-07-10] MEDS: SODIUM CHLORIDE 0.9% IV 1,000 ML 999 ML IV CONT (12:43)
[2024-07-10] MEDS: LIDOCAINE, EPINEPHRINE, TETRACAINE VISCOUS SOLN 3 ML TOPICAL (12:43)
[2024-07-10 12:50] LABS: Alanine Aminotransferase 31 U/L (6-35); Albumin Level 4.2 g/dL (3.5-5.1); Alkaline Phosphatase 90 U/L (38-126); Anion Gap 6 mmol/L (4-12); Aspartate Amino Transferase 36 U/L (14-36); Bilirubin,Total 0.4 mg/dL (0.2-1.3); Blood Urea Nitrogen 20 mg/dL (7-17); Calcium 9.7 mg/dL (8.4-10.2); Carbon Dioxide 30 mmol/L (22-30); Chloride 98 mmol/L (98-107); Estimated CRCL calculation 46 ml/min; Estimated Glomerular Filt Rate > 60; Glucose 114 mg/dL (65-110); Potassium 3.9 mmol/L (3.4-5.0); Sodium 134 mmol/L (137-145)
[2024-07-10 13:01] LABS: Troponin I < 0.012 ng/mL (0.000-0.034)
== END 2024-07-10 13:52 | disposition home or self-care (01) ==
PROVIDERS: Emergency Provider Student in an Organized Health Care Education/Training Program; PCP Family Medicine
DX: S01.01XA Laceration without foreign body of scalp, initial encounter (principal); R55 Syncope and collapse; K76.9 Liver disease, unspecified; M81.0 Age-related osteoporosis without current pathological fracture; M19.90 Unspecified osteoarthritis, unspecified site; Z87.440 Personal history of urinary (tract) infections; W18.39XA Other fall on same level, initial encounter
CPT/HCPCS: 12002; 36415; 70450; 72125; 80053; 83735; 84484; 85025; 93005; 96360; 99284; J7030

== ENCOUNTER 2024-07-19 14:00 | Emergency (ER) | payer MEDICARE, SELFPAY ==
[2024-07-19 14:14] VITALS: BP 128/68; PULSE 78; RESP 16; TEMP 36.6; O2SAT 99
--- NOTE | 2024-07-19 14:19 | ED_ITS ---
HPI - General Adult General Chief complaint: Skin/Abscess/Foreign Body Stated complaint: Stitch Removal Time Seen by Provider: 07/19/24 14:20 Source: patient, RN notes reviewed and old records reviewed Mode of arrival: ambulatory Limitations: no limitations History of Present Illness HPI narrative: 79 year old female presents to [facility] care with stated complaints of having laceration to her right occipital scalp which occurred on the June when she passed out at home. Patient reports that she had a sinus infection at the time of syncopal episode and was treated with Augmentin. Patient has 5 linda to the right occipital scalp with wound well approximated, no redness or signs of infection, no drainage or bulging of wound.Patient brought her own staple remover she received in ED. MD complaint: removal of linda Location: head (right occipital) Related Data Home Medications ?Medication ?Instructions ?Recorded ?Confirmed ?Last Taken ?Type geriatric multivitamin-min 1 tablet PO DAILY 11/19/20 07/07/24 11/25/20 History methenamine hippurate 1 gram tablet 1 g PO BID 11/19/23 07/07/24 Unknown History Allergies Allergy/AdvReac Type Severity Reaction Status Date / Time alendronate sodium (From AdvReac Severe joint Verified 07/19/24 14:15 Fosamax) stiffness ciprofloxacin AdvReac Unknown Nausea Verified 07/19/24 14:15 Review of Systems Review of Systems: CONSTITUTIONAL: Denies fever, chills, or sweats. EYES: Denies visual changes, redness, or discharge. ENT: Denies rhinorrhea, congestion, sore throat, or otalgia. CARDIOVASCULAR: Denies chest pain, palpitations, or edema. RESPIRATORY: Denies cough or dyspnea. GASTROINTESTINAL: Denies abdominal pain, nausea, vomiting, or diarrhea. GENITOURINARY: Denies dysuria or hematuria. SKIN: Denies rash or itching.has 5 linda to right occipital region of head with wound well approximated MUSCULOSKELETAL: Denies back pain, joint pain, or myalgia. NEUROLOGIC: Denies headache, numbness, or weakness. PSYCHIATRIC: Denies anxiety or depression. All systems reviewed & are unremarkable except as noted in HPI and below PMFSH Past Medical History Medical History Body mass index [BMI] 24.0-24.9, adult (12/03/18) UTI (urinary tract infection), bacterial Urine frequency URI, acute Trigger middle finger of right hand Sciatica of right side Recurrent cystitis Post-menopause Pain in joint involving lower leg Other spondylosis with radiculopathy, lumbar region Nocturia Liver disease, unspecified Hematuria, unspecified Encounter for immunization (01/19/18) Elevated blood pressure reading without diagnosis of hypertension Dysuria Constipation in female Breast cancer screening Bacterial vaginosis Allergy to insect bites Age related osteoporosis Arthritis Hepatitis C antibody test negative (10/24/16) Surgical History Surgical History Ovarian cyst [address] Dr. Greeen H/O colonoscopy Family History Family History Grandparent Family history of premature coronary heart disease Diabetes mellitus Hypertension Cerebrovascular accident Family history of coronary artery disease Father Hypertension Family history of congestive heart failure Mother Hypertension Son Diabetes mellitus Other Arthritis Social History Social History Smoking status: Never smoker Alcohol intake: current Alcohol use details: occasionally Substance use: never Substance use type: does not use Lack of Transportation: No Lack of Food: Never True Current Housing: I Have Housing Concerned About Future Housing: No Difficulty Paying Gas/Electric Bills: No Difficulty Paying for Meds: No Currently Unemployed: No Education: Associate Degree Difficulty w/ Childcare or Family Care: No Living arrangements: with family Additional living arrangements comments: lives with spouse Kiran Occupation/Education: retired Gender identity (if verbalized by the patient): Female Sexual Orientation (if Verbalized by the Patient): Straight or Heterosexual Spiritual care concerns: No Comments At time of signature, agree with nursing past medical, surgical, social and family history. There is no relevant family history pertinent to the presenting complaint Exam Narrative: GENERAL: Well-appearing, well-nourished, and in no acute distress. HEAD: Normocephalic, atraumatic. EYES: PERRLA and EOMI. ENT: Nares clear, no rhinorrhea or epistaxis. Mucous membranes moist.TM's normal throat pink with no swelling NECK: Supple. no lymphadenopathy CHEST: Clear to auscultation. No respiratory distress.SAO2 99% on room air HEART: Regular rate and rhythm. No murmur heard. Normal peripheral pulses. ABDOMEN: Soft, nontender, nondistended, normal active bowel sounds. EXTREMITIES: Normal range of motion. No edema. SKIN: Warm, dry, no rash. 5 linda to right occipital scalp with no signs of infection or any redness, well healed see procedure note NEURO: No focal deficits. Alert and oriented x3. Course Course Emergency Course: Patient is aware of diagnosis, understands and agrees to treatment plan.? Anticipatory guidance given.? Patient agrees to follow-up as directed and is aware of reasons to seek care at the emergency department. Portions of this record may have been created with voice recognition software Level of Care: Express Care Visit Vital Signs Vital signs: Vital Signs Temperature 36.6 C 07/19/24 14:14 Pulse Rate 78 07/19/24 14:14 Respiratory Rate 16 07/19/24 14:14 Blood Pressure 128/68 07/19/24 14:14 Pulse Oximetry 99 07/19/24 14:14 Temperature 36.6 C 07/19/24 14:14 Pulse Rate 78 07/19/24 14:14 Respiratory Rate 16 07/19/24 14:14 Blood Pressure 128/68 07/19/24 14:14 Pulse Oximetry 99 07/19/24 14:14 reviewed Procedures Other Procedure Procedure 1: Other Procedure: 1420 5 linda removed from right occipital region of head using sterile staple remover without difficulty with patient reporting no pain. Wound to the back of her head is well healed with no redness or signs of infection. Left open to air. Medical Decision Making MDM Narrative Medical decision making narrative: Exam findings and imaging show no acute concerns or changes; patient is non- toxic appearing and is in no distress.? Patient is appropriate for outpatient treatment and follow-up Differential Diagnosis Differential Diagnosis: encounter for removal of linda, healed scalp laceration Medical Records Medical records reviewed: Yes I reviewed the external patient's medical records. Vital Signs Vital Signs: Vital Signs Temperature 36.6 C 07/19/24 14:14 Pulse Rate 78 07/19/24 14:14 Respiratory Rate 16 07/19/24 14:14 Blood Pressure 128/68 07/19/24 14:14 Pulse Oximetry 99 07/19/24 14:14 Temperature 36.6 C 07/19/24 14:14 Pulse Rate 78 07/19/24 14:14 Respiratory Rate 16 07/19/24 14:14 Blood Pressure 128/68 07/19/24 14:14 Pulse Oximetry 99 07/19/24 14:14 reviewed Critical Care Time Critical Care Time Critical Care Time: No Discharge Plan Discharge Clinical Impression: Encounter for removal of linda Patient Disposition: Home Condition: Stable Instructions: Antibiotic Form Additional Instructions: cleanse wound site with soap water as needed may apply bacitracin ointment if any itching or any irritation watch for any infection--redness, swelling, drainage Tylenol or ibuprofen for any fever pain follow up with PCP in for any further wound check recheck if develop fever, chills, increasing symptom Go to the ER if your symptoms become worse of if ANY new symptoms develop If your symptoms persist, change or worsen significantly before you can contact your personal physician then please, without delay, go to the emergency dep artment for further evaluation. Follow-up with PCP in 7-10 days or sooner if needed Follow up with PCP soon in regards to your blood pressure which is elevated above threshold for referral. Blood pressure above 120/80 may indicate pre- hypertension. minimal systolic elevation at 128/68 Patient Language: Nepali Prescriptions: No Action methenamine hippurate 1 gram tablet 1 g PO BID One-A-Day 50 Plus Tablet 1 tablet PO DAILY lisinopril 10 mg tablet See Rx Instructions .ROUTE .COMPLEX Qty: 90 1RF Dose Instruction: TAKE 1 TABLET BY MOUTH DAILY Rx Instructions: TAKE 1 TABLET BY MOUTH DAILY trazodone 50 mg tablet 50 mg PO QHS PRN (Reason: Sleep) Qty: 90 1RF Follow-up/Referrals: PHYSICIAN,HVAC SPECIALIST [Primary Care Provider] - Time of Disposition: 14:23 Quality Mitchell Coma Scale Eyes: Open Verbal: Oriented and Alert Motor: Follows Commands Mitchell Coma Total Score: 15
== END 2024-07-19 14:24 | disposition home or self-care (01) ==
PROVIDERS: Emergency Provider Registered Nurse
DX: S01.01XD Laceration without foreign body of scalp, subsequent encounter (principal); W19.XXXD Unspecified fall, subsequent encounter; M81.0 Age-related osteoporosis without current pathological fracture; M47.26 Other spondylosis with radiculopathy, lumbar region
CPT/HCPCS: 99211; G0463

== ENCOUNTER 2024-10-23 09:21 | Emergency (ER) | payer MEDICARE, SELFPAY ==
--- OUTSIDE RECORDS SUMMARY | 2024-10-23 09:24 | XMS_ITS ---
Author Organization [facility] Address [address] [facility] [place] [address] Care Team Providers Care Vp Cardiovascular Service Line Name Role Phone KRISTINAONDINAJosephine TINOCOGANA Primary Care Provider Ander navarrete Ulises Keenan Unavailable [phone] ALLERGIES No Known Allergies REASON FOR VISIT Follow Up, Left > Right Low Back Pain, Left = Right Lower Extremity Pain MEDICATIONS Medication SIG (Take, Route, Frequency, Duration) Notes Start Date End Date Status traMADol HCl 50 MG 1 tablet as needed O rally Once a day Active Cyclobenzaprine HCl 5 MG TAKE 1 TABLET B Y MOUTH THREE TIMES DAILY NEEDED FOR MUSCLE SPASM Oral for 6 Active Naproxen 500 MG Oral for 30 Ac tive Methenamine Hippurate 1 GM TAKE 1 TABLET BY MOUTH TWICE DAILY Oral for 30 Active traZODone HCl 50 MG 1 tablet at bedtime Oral Once a day Active Aleve 220 MG 1 tablet with food o r milk as needed Orally every 12 hrs Active Tylenol 325 MG 1 tablet as needed O rally every 6 hrs Active Lisinopril 10 MG TAKE 1 TABLET BY TANIKA TH DAILY Oral for 90 Active SOCIAL HISTORY Tobacco Use: Social History Observation Description Date Details (start date - stop date) Never Smoker NA - NA Sex Assigned At : Social History Observation Description Sex Assigned At Unknown Tobacco Use/Smoking Question Answer Notes Are you a nonsmoker Section Notes: The patient is retired. 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 She denies tobacco, alcohol, or illicit drug abuse. VITAL SIGNS Blood pressure systolic 123 mm Hg 10/13/19 25 Blood pressure diastolic 66 mm Hg 025 Heart Rate 77 /min 10/12/2024 Respiratory Rate 18 /min 10/12/2024 Height 5 ft 2 in in 10/12/2024 Weight 126 lbs 10/12/2024 BMI 23.04 kg/m2 10/12/2024 Encounters Encounter Location Date Provider Diagnosis [facility] [address] [facility] [place] [address] 10/12/2024 Ulises Keenan Sacroiliitis, not elsewhere classified M46.1 ; Lumbar radiculopathy M54.16 ; Radiculopathy, cervical region M54.12 ; Spondylosis without myelopathy or radiculopathy, lumbar region M47.816 ; Spondylosis without myelopathy or radiculopathy, lumbosacral region M47.817 ; Trochanteric bursitis, left hip M70.62 and manager intermediate (current) use of non-steroidal anti-inflammatories (NSAID) Z79.1 ASSESSMENTS Encounter Date Diagnosis Assessment Notes Treatment Notes Treatment Clinical Notes Section Notes 10/12/2024 Sacroiliitis, not elsewhere classified (ICD-10 - M46.1) 10/12/2024 Lumbar radiculopathy (ICD-10 - M54.16) Schedule a [...] is agreeable to proceeding at this time. 10/12/2024 Radiculopathy, cervical region (ICD-10 - M54.12) 10/12/2024 Spondylosis without myelopathy or radiculopathy, lumbar region (ICD-10 - M47.816) 10/12/2024 Spondylosis without myelopathy or radiculopathy, lumbosacral region (ICD-10 - M47.817) 10/12/2024 Trochanteric bursitis, left hip (ICD-10 - M70.62) 10/12/2024 USP (current) use of non-steroidal anti-inflammatori es (NSAID) (ICD-10 - Z79.1) Patient was instructed to hold NSAIDs for 4 days prior to their procedure. Patient verbalized understanding. 10/12/2024 Other The above-named patient was evaluated in [...] PLAN OF TREATMENT Treatment Notes Assessment Notes Lumbar radiculopathy Schedule a bilatera l L4-5 transforaminal epidural steroid injection. The risks [...] is agreeable to proceeding at this time. manager intermediate (current) use of n on-steroidal anti-inflammatories (NSAID) Patient was instructed to hold NSAIDs fo r 4 days prior to their procedure. Patient verbalized understanding. Other The above-named patient was evaluated in [...] minutes Next Appt Details Follow Up: bilateral L4-5 TF E, Reason: Provider Name:Ulises loredo, 11/30/2024 10:00:00 AM, [address] [place], [address], Progress Notes * Examination Category Sub-Category Detail Notes Category Not es Examination/ Pre-Anesthesia Assessment General: The patient is alert and oriented X 3 in moderate distress secondary to [...] patient's typical axial low back pain. Raul's, Dublin's and Gaenslen's are positive bilaterally. There is [...] of Present Illness) Category Sub-Category Detail Notes Category Not es Pain Management Radiographic Imaging An MRI lumbar [...] on 04/17/23 demonstrates mild left hip osteoarthritis Lumbar spine without contrast performed on 04/18/24 . L1-2 minimal disc bulge. Ligamentum flavum infolding. There is mild facet arthropathy. There is no neural foraminal stenosis. There is no spinal canal stenosis. L2-3, mild disc bulge. Ligamentum flavum infolding. There is mild facet arthropathy. There is mild right neural foraminal stenosis. There is no spinal canal stenosis. L3-4 anterior listhesis with partial disc uncovering. Ligamentum flavum infolding. There is moderate facet arthropathy. There is mild neural foraminal stenosis. There is moderate spinal canal stenosis. L4-5 anterior listhesis with partial disc uncovering. Ligamentum flavum infolding. There is severe facet arthropathy. There is moderate neural foraminal stenosis. There is severe spinal canal stenosis. L5-S1 mild disc bulge with superimposed small central disc extrusion with cephalad migration. No significant ligamentum flavum infolding. There is moderate facet arthropathy. There is moderate left foraminal stenosis. There is no spinal canal stenosis. Assessment and Follow-up: Follow-up Plan docdolly coreen:: Yes
--- OUTSIDE RECORDS SUMMARY | 2024-10-23 09:24 | XMS_ITS | Clinical Summary ---
Author Organization [facility] Address [address] [place] [address] Phone Care Team Providers Care Billboard Erector Name Role Phone Breezy Valverde MD Primary Care Provider [phone] Allergies No known active allergies Medications CALCIUM [...] Encounters Date Type Department Care Team Description 09/28/2024 External Device Data [facility] ABSTRACTION Provider, Abstract 09/27/2024 External Device Data [facility] ABSTRACTION Provider, Abstract 09/06/2024 External Device Data [facility] ABSTRACTION Provider, Abstract 08/31/2024 External Device Data [facility] ABSTRACTION Provider, Abstract 08/30/2024 External Device Data [facility] ABSTRACTION Provider, Abstract [...] on file Legal Sex Female 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 Gender Identity Not on file Sexual Orientation [...] 1:34 PM CDT Height 157.5 cm (5' 2) 11/23/2020 1:34 PM CDT Body Mass Index 25.24 11/23/2020 1:34 PM CDT Plan of Treatment Health Maintenance Due Date Last Done Comments DTAP/TDAP/TD VACCINES (1 - Tdap) 01/24/1964 ZOSTER VACCINE (1 of 2) 1995 PNEUMOCOCCAL VACCINE 50+ YEA RS (2 of 2 - PPSV23) 03/13/2016 03/13/2015, 03/13/2015, 04/13/2011 RSV VACCINE (60+ or ) (1 - 1-dose 75+ series) 01/24/2020 OSTEOPOROSIS SCREENING 04/19/2023 9, 11/06/2015, 10/12/2015, Additional history exists INFLUENZA VACCINE (#1) 2024 03/13/2015, 2010 COLORECTAL SCREENING Discontinued 04/13/2011 Colorectal Cancer Screening Discontinued FIT-DNA Q 3 years Discontinued FIT/FOBT Q 1 year Discontinued Flex Sig/CT Colonography Q 5 years Discontinued Insurance MEDICARE PART A AND B BCBS BLUE ACCESS/TRUE BLUE PPO RX PRIME [employer]ERAPEUTICS Medicare Part D Care Teams Billboard Erector Relationship Specialty Start Date End Date Breezy Valverde MD [address] [place] [address] PCP - General Family Practice 03/07/19
--- OUTSIDE RECORDS SUMMARY | 2024-10-23 09:24 | XMS_ITS | Clinical Summary ---
Author Organization [facility] Address [address] [place] [address] Care Team Providers Care Digital Performance Analyst Name Role Phone Jennifer Waller DO Primary Care Provider [phone] Allergies No known active allergies Medications estradioL [...] Lumbar radiculitis 05/28/2022 Lumbar spinal stenosis 05/28/2022 Surgical History Surgery Date Site/Laterality Comments GA SLING OPERATION STRESS INCONTINENCE Vaginal Sling Operation For Stress Incontinence - s/p fascial sling 1997 and TVT 04/13. 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 TOW TRUCK Gender Identity Female 11/12/2022 8:30 AM CDT [...] 59 kg (130 lb) 04/18/2024 10:39 AM DISPATCHER TOW TRUCK Height 157.5 cm (5' 2) 04/10/2023 12:49 PM DISPATCHER TOW TRUCK Body Mass Index 23.78 04/10/2023 12:49 PM DISPATCHER TOW TRUCK Plan of Treatment Health Maintenance Due Date Last Done Comments Depression Screening 1945 Hepatitis C Screening 1945 Osteoporosis Screening-Bone Density Scan 1945 Hepatitis B Screening 1963 Well Visit 65+ 2010 Zoster Vaccine (2 of 3) 04/11/2013 02/14/2013 Pneumococcal vaccine 65+ (2 of 2 - PPSV23) 03/13/2016 03/13/2015, 04/13/2011 Covid-19 Vaccine (2023-2 5 season) 2023 01/09/2022, 07/17/2021, 02/08/2021, Additional history exists Fall Risk Assessment 10/25/2024 10/26/2023 Influenza Vaccine (Season Ended) 2024 01/09/2022, 01/16/2021, 12/25/2019, Additional history exists DTaP/Tdap/Td Vaccine (2 - Td or Tdap) 04/02/2032 04/02/2022 Insurance MEDICARE [facility] MEDICARE SUPPLEMENT MEDICARE [facility] MEDICARE [facility] MEDICARE SUPPLEMENT Care Teams Digital Performance Analyst Relationship Specialty Start Date End Date Jennifer Waller DO PCP - General Family Medicine 05/27/22
--- OUTSIDE RECORDS SUMMARY | 2024-10-23 09:24 | XMS_ITS | Patient Health Record ---
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 She denies tobacco, alcohol, or illicit drug abuse. The patient is retired. 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 She denies tobacco, alcohol, or illicit drug abuse. The patient is retired. 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 She denies tobacco, alcohol, or illicit drug abuse. The patient is retired. 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 She denies tobacco, alcohol, or illicit drug abuse. The patient is retired. 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 She denies tobacco, alcohol, or illicit drug abuse. The patient is retired. 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 She denies tobacco, alcohol, or illicit drug abuse. The patient is retired. 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 She denies tobacco, alcohol, or illicit drug abuse. The patient is retired. 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 She denies tobacco, alcohol, or illicit drug abuse. The patient is retired. 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 She denies tobacco, alcohol, or illicit drug abuse. The patient is retired. 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 She denies tobacco, alcohol, or illicit drug abuse. The patient is retired. 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 She denies tobacco, alcohol, or illicit drug abuse. The patient is retired. 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 She denies tobacco, alcohol, or illicit drug abuse. The patient is retired. 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 She denies tobacco, alcohol, or illicit drug abuse. The patient is retired. 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 She denies tobacco, alcohol, or illicit drug abuse. The patient is retired. 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 She denies tobacco, alcohol, or illicit drug abuse. The patient is retired. 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 She denies tobacco, alcohol, or illicit drug abuse. The patient is retired. 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 She denies tobacco, alcohol, or illicit drug abuse. The patient is retired. 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 She denies tobacco, alcohol, or illicit drug abuse. PROBLEMS Problem Type ICD Code Onset Dates Problem Status W/U Status Risk SNOMED Code Notes Problem Chronic pain syndrome (G89.4) Active confirmed Chronic timothy n syndrome (708959500) Problem Spondylolisthesis , lumbar region (M43.16) Active confirmed Acquired spondylolisthesis (969303716) Problem Sacroiliitis, not elsewhere classified (M46.1) Active confirmed Solitary sacroiliitis (265194376) Problem Spondylosis without myelopathy or radiculopathy, lumbar region (M47.816) Active confirmed Lumbosacral spondylosis without myelopathy (53119800) Problem Spondylosis without myelopathy or radiculopathy, lumbosacral region (M47.817) Active confirmed Lumbosacral spondylosis without myelopathy (disorder) (78420731) Problem Radiculopathy, cervical region (M54.12) Active confirmed Cervical radiculopathy (59595054) Problem Radiculopathy, lumbar region (M54.16) Active confirmed Lumbar radiculopathy (636453171) Problem Trochanteric bursitis, left hip (M70.62) Active confirmed Trochanteric bursitis of left hip (171554639281692) Problem 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) Active confirmed Spinal stenosis of lumbar region (78028260) Problem long term care phlebotomist (current) use of non-steroidal anti-inflammatori es (NSAID) (Z79.1) Active confirmed long term care phlebotomist curre nt use of non-steroidal anti-inflammatory drug (743438541174106) Problem Spinal stenosis, lumbar region with neurogenic claudication (M48.062) Active confirmed Neurogenic claudication (731717700) Problem Lumbar radiculopathy (M54.16) Active confirmed Lumbar radiculopathy (427673234) Problem Other intervertebral disc degeneration, 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 Blood pressure diastolic 66 mm Hg 10/12/2024 Height 5 ft 2 in in 10/12/2024 Blood pressure systolic 123 mm Hg 10/12/2024 Weight 126 lbs 10/12/2024 BMI 23.04 kg/m2 10/12/2024 Encounters Encounter Location Date Provider Diagnosis [facility] [address] [place] [address] [place] [address] 04/07/2024 Ulises Stynowick Lumbar radiculopathy M54.16 ; [...] M70.62 ; Chronic pain syndrome G89.4 and long term care phlebotomist (current) use of non-steroidal anti-inflammatories (NSAID) Z79.1 [facility] [address] [place] [address] [place] [address] 04/19/2024 Ulises Stynowick Radiculopathy, lumba r region M54.16 [facility] [address] [place] [address] [place] [address] 04/26/2024 Ulises Stynowick Radiculopathy, lumba r region M54.16 ; Spinal stenosis, lumbar region with neurogenic claudication M48.062 and Osseous and subluxation stenosis of intervertebral foramina of lumbar region M99.63 [facility] [address] [place] [address] [place] [address] 04/27/2024 Ulises Stynowick [facility] [address] [place] [address] 05/16/2024 Ulises Sthemal Lumbar radiculopathy M54.16 ; Sacroiliitis, not elsewhere [...] M70.62 ; Chronic pain syndrome G89.4 and half-way (current) use of non-steroidal anti-inflammatories (NSAID) Z79.1 [facility] [address] [place] [address] 05/18/2024 Ulises Sthemal Sacroiliitis, not elsewhere classified M46.1 [facility] [address] [place] [address] 05/18/2024 Ulises Sthemal Lumbar radiculopathy M54.16 ; Spinal stenosis, lumbar [...] M70.62 ; Chronic pain syndrome G89.4 and half-way (current) use of non-steroidal anti-inflammatories (NSAID) Z79.1 [facility] [address] [place] [address] 05/19/2024 Ulises Stynowick [facility] [address] [place] [address] 06/05/2024 EDNA SUERO [facility] [address] [place] [address] 06/06/2024 Ulises Stynowick Lumbar radiculopathy M54.16 ; [...] M70.62 ; Chronic pain syndrome G89.4 and long term care phlebotomist (current) use of non-steroidal anti-inflammatories (NSAID) Z79.1 [facility] [address] [place] [address] 06/15/2024 Ulises Stynowick Spondylosis without myelopathy or radiculopathy, lumbar region M47.816 and Spondylosis without myelopathy or radiculopathy, lumbosacral region M47.817 [facility] [address] [place] [address] 06/16/2024 Ulises Stynowick [facility] [address] [place] [address] 06/22/2024 Ulises Stynowick Lumbar radiculopathy M54.16 ; [...] M70.62 ; Chronic pain syndrome G89.4 and half-way (current) use of non-steroidal anti-inflammatories (NSAID) Z79.1 [facility] [address] [place], [place] [address] [address] 07/06/2024 Ulises Sthemal Spondylosis without myelopathy or radiculopathy, lumbar region M47.816 and Spondylosis without myelopathy or radiculopathy, lumbosacral region M47.817 [facility] [address] [place], [place] [address], [place] [address] 07/07/2024 Ulises Stynnatalyick [facility] [address] [place], [place] [address], [place] [address] 07/12/2024 Ulises Stynnatalyick [facility] [address] [place], [place] [address] [address] 07/13/2024 Ulises Sthemal Spondylosis without myelopathy or radiculopathy, lumbar region M47.816 and Spondylosis without myelopathy or radiculopathy, lumbosacral region M47.817 [facility] [address] [place], [place] [address] [address] 07/14/2024 Ulises Sthemal [facility] [address] [place] [address] [place] [address] 08/09/2024 Ulises Sthemal Lumbar radiculopathy M54.16 ; Spondylosis without myelopathy [...] M70.62 ; Chronic pain syndrome G89.4 and long term care phlebotomist (current) use of non-steroidal anti-inflammatories (NSAID) Z79.1 [facility] [address] [place] [address] [facility] [place] [address] 08/24/2024 Ulises Stynowick Radiculopathy, lumba r region M54.16 ; Spinal stenosis, lumbar region with neurogenic claudication M48.062 and Osseous and subluxation stenosis of intervertebral foramina of lumbar region M99.63 [facility] [address] [place] [address] 08/25/2024 Ulises Stynowick [facility] [address] [place] [address] 09/01/2024 Ulisse Stynowick Lumbar radiculopathy M54.16 ; Trochanteric bursitis, left hip M70.62 ; Spondylosis without myelopathy or radiculopathy, lumbar [...] ; Sacroiliitis, not elsewhere classified M46.1 ; Chronic pain syndrome G89.4 and half-way (current) use of non-steroidal anti-inflammatories (NSAID) Z79.1 [facility] [address] [place] [address] 09/12/2024 Ulises Stynowick Trochanteric bursiti s, left hip M70.62 [facility] [address] [place] [address] 09/26/2024 Ulises Stynowick Trochanteric bursiti s, left hip M70.62 ; Sacroiliitis, not elsewhere classified M46.1 ; Lumbar radiculopathy M54.16 ; Spinal stenosis, lumbar region with neurogenic claudication M48.062 and Radiculopathy, lumbar region M54.16 [facility] [address] [place] [address] 10/04/2024 Ulises Stynowick Sacroiliitis, not elsewhere classified M46.1 and Radiculopathy, cervical region M54.12 [facility] [address] [place] [address] 10/05/2024 Ulises Keenan [facility] [address] [facility] [place] [address] 10/12/2024 Ulises Keenan Sacroiliitis, not elsewhere classified M46.1 ; Lumbar radiculopathy M54.16 ; Radiculopathy, cervical region M54.12 ; Spondylosis without myelopathy or radiculopathy, lumbar region M47.816 ; Spondylosis without myelopathy or radiculopathy, lumbosacral region M47.817 ; Trochanteric bursitis, left hip M70.62 and half-way (current) use of non-steroidal anti-inflammatories (NSAID) Z79.1 ASSESSMENTS Encounter Date Diagnosis Assessment Notes Treatment Notes Treatment Clinical Notes Section Notes 04/07/2024 Spinal stenosis, lumbar region with [...] or radiculopathy, lumbosacral region (ICD-10 - M47.817) 07/13/2024 Spondylosis without myelopathy or radiculopathy, lumbar region (ICD-10 - M47.816) 07/13/2024 Spondylosis without myelopathy or radiculopathy, lumbosacral region (ICD-10 - M47.817) 06/22/2024 Lumbar radiculopathy (ICD-10 - M54.16) 08/09/2024 Spondylosis without myelopathy or radiculopathy, lumbar region (ICD-10 - M47.816) 08/09/2024 Lumbar radiculopathy (ICD-10 - M54.16) Schedule a [...] is agreeable to proceeding at this time. 08/24/2024 Radiculopathy, lumbar region (ICD-10 - M54.16) 08/24/2024 Spinal stenosis, lumbar region with neurogenic claudication (ICD-10 - M48.062) 09/01/2024 Trochanteric bursitis, left hip (ICD-10 - M70.62) Schedule a left greater trochanteric bursa steroid injection. The risks of this procedure including pain, bleeding, infection, nerve damage, hyperglycemia, insomnia, weight gain, fluid retention, adrenal suppression, osteoporosis, avascular necrosis of the hip, cataracts, bleeding gastric ulcer, worsening pain and failure to relieve pain were discussed and the patient is agreeable to proceeding at this time 09/01/2024 Lumbar radiculopathy (ICD-10 - M54.16) 09/12/2024 Trochanteric bursitis, left hip (ICD-10 - M70.62) 09/26/2024 Sacroiliitis, not elsewhere classified (ICD-10 - M46.1) [...] is agreeable to proceeding at this time. 09/26/2024 Trochanteric bursitis, left hip (ICD-10 - M70.62) 10/04/2024 Sacroiliitis, not elsewhere classified (ICD-10 - M46.1) 10/04/2024 Radiculopathy, cervical region (ICD-10 - M54.12) 10/12/2024 Sacroiliitis, not elsewhere classified (ICD-10 - [...] is agreeable to proceeding at this time. 09/26/2024 Lumbar radiculopathy (ICD-10 - M54.16) 10/12/2024 Radiculopathy, cervical region (ICD-10 - M54.12) 08/09/2024 Spinal stenosis, lumbar region with neurogenic claudication (ICD-10 - M48.062) 09/01/2024 Spondylosis without myelopathy or radiculopathy, lumbar region (ICD-10 - M47.816) 08/24/2024 Osseous and subluxation stenosis of intervertebral foramina of lumbar region (ICD-10 - M99.63) 06/06/2024 Spinal stenosis, lumbar region with neurogenic [...] foramina of lumbar region (ICD-10 - M99.63) 08/09/2024 Osseous and subluxation stenosis of intervertebral foramina of lumbar region (ICD-10 - M99.63) 09/01/2024 Spinal stenosis, lumbar region with neurogenic claudication (ICD-10 - M48.062) 10/12/2024 Spondylosis without myelopathy or radiculopathy, lumbar region (ICD-10 - M47.816) 09/26/2024 Spinal stenosis, lumbar region with neurogenic claudication (ICD-10 - M48.062) 09/26/2024 Radiculopathy, lumbar region (ICD-10 - M54.16) 10/12/2024 Spondylosis without myelopathy or radiculopathy, lumbosacral region (ICD-10 - M47.817) 09/01/2024 Osseous and subluxation stenosis of intervertebral foramina of lumbar region (ICD-10 - M99.63) 08/09/2024 Spondylolisthesis, lumbar region (ICD-10 - M43.16) 06/06/2024 Spondylolisthesis, lumbar region (ICD-10 - M43.16) [...] and lower extremity pain (ICD-10 - M51.362) 08/09/2024 Other intervertebral disc degeneration, lumbar region with discogenic back pain and lower extremity pain (ICD-10 - M51.362) 09/01/2024 Spondylolisthesis, lumbar region (ICD-10 - M43.16) 10/12/2024 Trochanteric bursitis, left hip (ICD-10 - M70.62) 10/12/2024 half-way (current) use of non-steroidal anti-inflammatorie s (NSAID) (ICD-10 - Z79.1) Patient was instructed to hold NSAIDs for 4 days prior to their procedure. Patient verbalized understanding. 09/01/2024 Other intervertebral disc degeneration, lumbar region with discogenic back pain and lower extremity pain (ICD-10 - M51.362) 08/09/2024 Spondylosis without myelopathy or radiculopathy, lumbosacral region (ICD-10 - M47.817) 06/06/2024 Spondylosis without myelopathy or radiculopathy, lumbosacral [...] Sacroiliitis, not elsewhere classified (ICD-10 - M46.1) 08/09/2024 Sacroiliitis, not elsewhere classified (ICD-10 - M46.1) 09/01/2024 Spondylosis without myelopathy or radiculopathy, lumbosacral region (ICD-10 - M47.817) 09/01/2024 Sacroiliitis, not elsewhere classified (ICD-10 - M46.1) 08/09/2024 Trochanteric bursitis, left hip (ICD-10 - M70.62) 06/06/2024 Trochanteric bursitis, left hip (ICD-10 - [...] 06/06/2024 Chronic pain syndrome (ICD-10 - G89.4) 08/09/2024 Chronic pain syndrome (ICD-10 - G89.4) 09/01/2024 Chronic pain syndrome (ICD-10 - G89.4) 09/01/2024 half-way (current) use of non-steroidal anti-inflammatorie s (NSAID) (ICD-10 - Z79.1) 06/22/2024 half-way (current) use of non-steroidal anti-inflammatorie s (NSAID) (ICD-10 - Z79.1) 08/09/2024 long term care phlebotomist (current) use of non-steroidal anti-inflammatorie s (NSAID) (ICD-10 - Z79.1) Patient was instructed to hold NSAIDs for 4 days prior to their procedure. Patient verbalized understanding. 06/06/2024 half-way (current) use of non-steroidal anti-inflammatorie s (NSAID) (ICD-10 - Z79.1) 05/16/2024 long term care phlebotomist (current) use of non-steroidal anti-inflammatorie s (NSAID) (ICD-10 - Z79.1) 05/18/2024 Chronic pain syndrome (ICD-10 - G89.4) 04/07/2024 long term care phlebotomist (current) use of non-steroidal anti-inflammatorie s (NSAID) (ICD-10 - Z79.1) The patient was instructed to discontinue NSAIDs for 4 days prior to any future epidural injections. 05/18/2024 half-way (current) use of non-steroidal anti-inflammatorie s (NSAID) (ICD-10 - Z79.1) 04/19/2024 Other The [...] for infection: Implements aseptic technique, protects from cross-contaminatio n, performs skin preparations. Pain/Discomfort: Patient verbalizes acceptable [...] for infection: Implements aseptic technique, protects from cross-contaminatio n, performs skin preparations. Pain/Discomfort: Patient verbalizes acceptable level of pain relief prior to discharge and the ability to engage in desired activity. I HAVE REVIEWED THE PATIENT'S MEDICATION LIST AND HAVE RECONCILED THE ABOVE MEDICATIONS. PATIENT GOALS AND SAFETY CONCERNS HAVE BEEN ADDRESSED. RN initials JE. 05/16/2024 Other The above-named patient was evaluated in conjunction with Dr. Keeann. I have discussed and reviewed all of [...] for infection: Implements aseptic technique, protects from cross-contaminatio n, performs skin preparations. Pain/Discomfort: Patient verbalizes acceptable level of pain relief prior to discharge and the ability to engage in desired activity. I HAVE REVIEWED THE PATIENT'S MEDICATION LIST AND HAVE RECONCILED THE ABOVE MEDICATIONS. PATIENT GOALS AND SAFETY CONCERNS HAVE BEEN ADDRESSED. RN initials CR. 06/06/2024 Other The above-named patient was [...] for infection: Implements aseptic technique, protects from cross-contaminatio n, performs skin preparations. Pain/Discomfort: Patient verbalizes acceptable [...] for infection: Implements aseptic technique, protects from cross-contaminatio n, performs skin preparations. Pain/Discomfort: Patient verbalizes acceptable level of pain relief prior to discharge and the ability to engage in desired activity. I HAVE REVIEWED THE PATIENT'S MEDICATION LIST AND HAVE RECONCILED THE ABOVE MEDICATIONS. PATIENT GOALS AND SAFETY CONCERNS HAVE BEEN ADDRESSED. SARAH initials _JE 07/13/2024 Other The patient voiced understanding of the treatment plan and all questions were addressed. Obtain informed consent: Bilateral Lumbar 3-5 Radiofrequency Ablation under fluoroscopy. Monitor pulse, blood pressure and [...] for infection: Implements aseptic technique, protects from cross-contaminatio n, performs skin preparations. Pain/Discomfort: Patient verbalizes acceptable level of pain relief prior to discharge and the ability to engage in desired activity. I HAVE REVIEWED THE PATIENT'S MEDICATION LIST AND HAVE RECONCILED THE ABOVE MEDICATIONS. PATIENT GOALS AND SAFETY CONCERNS HAVE BEEN ADDRESSED. SARAH initials __JW__ 08/09/2024 Other The above-named patient was evaluated in [...] with Patient and Medical Decision Makin minutes 08/24/2024 Other The patient voiced understanding of the [...] for infection: Implements aseptic technique, protects from cross-contaminatio n, performs skin preparations. Pain/Discomfort: Patient verbalizes acceptable level of pain relief prior to discharge and the ability to engage in desired activity. I HAVE REVIEWED THE PATIENT'S MEDICATION LIST AND HAVE RECONCILED THE ABOVE MEDICATIONS. PATIENT GOALS AND SAFETY CONCERNS HAVE BEEN ADDRESSED. RN initials JW 09/01/2024 Other The above-named patient was evaluated in [...] with Patient and Medical Decision Makin minutes 09/26/2024 Other The above-named patient was evaluated in [...] occurred. This note was dictated by AURA Khan Total time spent with patient and medical decision making 25 minutes 10/04/2024 Other The patient voiced understanding of the treatment plan and all questions were addressed. Obtain informed consent: Bilateral Sacroiliac Joint Injection under fluoroscopy. Monitor pulse, [...] for infection: Implements aseptic technique, protects from cross-contaminatio n, performs skin preparations. Pain/Discomfort: Patient verbalizes acceptable level of pain relief prior to discharge and the ability to engage in desired activity. I HAVE REVIEWED THE PATIENT'S MEDICATION LIST AND HAVE RECONCILED THE ABOVE MEDICATIONS. PATIENT GOALS AND SAFETY CONCERNS HAVE BEEN ADDRESSED. RN initials CARRILLO 10/12/2024 Other The above-named patient was evaluated [...] Medical Decision Makin minutes PLAN OF TREATMENT Pending Test Test Name Order Date X ray : Spines, cervical 10/04/2024 MRI : Lumbar Spine without contrast ([id number]) 04/07/2024 Next Appt Details Provider Name:Ulises loredo, 11/30/2024 10:00:00 AM, [address], [place], [address], Insurance Providers Payer Name Payer Address Payer Phone Subscriber Number Group Number Insured Name Patient Relationship to Insured Coverage Start Date Coverage End Date Medicare [place] [address] [address] [place] [address] [id number] JENNIFER TURNER Self - patient is the insured [facility] [address] [address] [place] [phone] [id number] JENNIFER TURNER Self - patient is the insured MEDICAL (GENERAL) HISTORY Medical History History ICD Code Hypertension Surgical History Surgery Date(Month/Year)
--- OUTSIDE RECORDS SUMMARY | 2024-10-23 09:24 | XMS_ITS | Patient Health Record ---
Author Organization [facility] As [employer] Address [address] [facility] [address] [place] [address] Care Team Providers Care Promotions Assistant Name Role Phone George Arriaga Unavailable [phone] Reason For Referral No Information Medications Medication SIG (Take, Route, Frequency, Duration) Notes Start Date End Date Status TOBRAMYCIN 0.3 %-DEXAMETHASONE 0.05 % EYE DROPS,SUSPENSION *Reorder from [employer] for eRx and Interaction Alerts* Active Ciprofloxacin HCl 250 MG Oral Active Vagifem 10 mcg Vaginal Activ e Lisinopril 10 MG Oral Act julia Estrace 0.1 MG/GM Vaginal Ac tive Tolterodine Tartrate ER 4 MG Oral Active Plan Of Treatment No Information
--- OUTSIDE RECORDS SUMMARY | 2024-10-23 09:24 | XMS_ITS ---
Author Organization [facility] Address [address] [facility] [place] [address] Care Team Providers Care Coding Spec Name Role Phone KRISTINAONDINAJosephine TINOCOGANA Primary Care Provider Unavail Ulises Zee Unavailable [phone] REASON FOR VISIT Left > Right Low Back Pain MEDICATIONS Medication SIG (Take, Route, Frequency, Duration) Notes Start Date End Date Status Aleve 220 MG 1 tablet with food o r milk as needed Orally every 12 hrs Active Tylenol 325 MG 1 tablet as needed O rally every 6 hrs Active traZODone HCl 50 MG 1 tablet at bedtime Oral Once a day Active traMADol HCl 50 MG 1 tablet as needed O rally Once a day Active Methenamine Hippurate 1 GM TAKE 1 TABLET BY MOUTH TWICE DAILY Oral for 30 Active Lisinopril 10 MG TAKE 1 TABLET [...] retired. 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 She denies tobacco, alcohol, or illicit drug abuse. PROBLEMS Problem Type ICD Code Onset Dates Problem Status W/U Status Risk SNOMED Code Notes Problem Radiculopathy, cervical region (M54.12) Active confirmed VITAL SIGNS Blood pressure systolic 126 mm Hg 10/05/19 25 Blood pressure diastolic 67 mm Hg 025 Heart Rate 79 /min 10/04/2024 Respiratory Rate 16 /min 10/04/2024 Height 5 ft 2 in in 10/04/2024 Weight 127 lbs 10/04/2024 BMI 23.23 kg/m2 10/04/2024 Oximetry 96 % 10/04/2024 Post procedure VS= BP 115/71 , P 76, R 16, Spo2 97%Discharged to home with self, ambulatory, in no acute distress. Encounters Encounter Location Date Provider Diagnosis [facility] [address] [place] [address] 10/04/2024 Ulises Keenan Sacroiliitis, not elsewhere classified M46.1 and Radiculopathy, cervical region M54.12 ASSESSMENTS Encounter Date Diagnosis Assessment Notes Treatment Notes Treatment Clinical Notes Section Notes 10/04/2024 Sacroiliitis, not elsewhere classified (ICD-10 - M46.1) 10/04/2024 Radiculopathy, cervical region (ICD-10 - M54.12) 10/04/2024 Other The patient voiced understanding of [...] for infection: Implements aseptic technique, protects from cross-contaminati on, performs skin preparations. Pain/Discomfort: Patient verbalizes acceptable level of pain relief prior to discharge and the ability to engage in desired activity. I HAVE REVIEWED THE PATIENT'S MEDICATION LIST AND HAVE RECONCILED THE ABOVE MEDICATIONS. PATIENT GOALS AND SAFETY CONCERNS HAVE BEEN ADDRESSED. RN initials JE PLAN OF TREATMENT Treatment Notes Assessment Notes [...] SAFETY CONCERNS HAVE BEEN ADDRESSED. RN initials JE Pending Test Test Name Order Date X ray : Spines, cervical 10/04/2024 Next Appt Details Follow Up: HAS F/U SCHEDULED ON 10/12/24, Reason: Provider Name:Ulises loredo, 11/30/2024 10:00:00 AM, [address] [place], [address], Procedure Notes * Category Sub-Category Detail Notes Sacroiliac Joint Injection w ith Arthrogram under Fluoroscopy Location Bilateral Anesthesia Local without IV sed ation Operative Technique After the risks, shahab efits, alternative treatments and potential complications related to the procedure were discussed and informed consent was obtained, the patient was placed in the prone position on the fluoroscopy table. Standard ASA monitors were applied. The lower back and buttocks were prepped and draped in the usual sterile fashion with chlorhexidine 2%/IPA 70%. The left, followed by the right, sacroiliac joint was identified under live x-ray. An AP view was obtained superimposing the inferior aspect of the anterior and posterior sacroiliac joint. A 23 gauge 3.5 inch spinal needle was inserted under fluoroscopic guidance towards the inferior aspect of the sacroiliac joint until periosteum was contacted. The subcutaneous structures were anesthetized with 1 mL of 1% Preservative-Free lidocaine during needle placement. The needle tip was advanced into the inferior most aspect of the sacroiliac joint. A lateral view was taken to ensure correct placement within the sacroiliac joint. An AP view was taken and after negative aspiration for blood, air and CSF, 2 mL of Omnipaque 240 contrast dye was injected into each joint under live fluoroscopy for an arthrogram demonstrating normal cephalad spread within the sacroiliac joint (except in cases of contrast allergy). No intravascular or perineural spread noted. There were no abnormalities in articular contour noted on the arthrogram. A solution of 10 mg of Preservative-Free Dexamethasone (10 mg/mL), plus 2 mL of 0.25% PF bupivacaine was mixed and after negative aspiration 1.5 mL of this solution was slowly injected into each (left followed by right) joint space. The needle was removed, the skin was cleaned and band-aids were placed over the puncture site. The patient tolerated the procedure well, was able to ambulate without difficulty and was monitored for 20 minutes. Patient reports an 80% reduction in typical pain immediately postprocedure. The patient remained hemodynamically and neurologically stable. No apparent complications were observed. Postoperative instructions were reviewed with the patient. The patient was then discharged home in good condition with a driver material handler. X-ray time: 9 seconds [facility] First Critical Point Aminah ent identified by verbal and ID band. Surgical site marked. Assessement of allergies, airway and aspiration risk. Assessed if patient is on anticoagulant. Operataive Consent signed. Patient has discussed procedure with physician Carly Bryan 10/04/2024 12:26:38 PM > Second Critical Point TIME OUT: Confirm patient identity, procedure and surgical incision site. Patient in proper position and safety straps placed appropriately. ASA score: 2 Fire Risk Score:2 . Alcohol based prep solution had significant time for fumes to dissipate. Confirm surgical steam table worker and roles. Anticipated critical events. Essential imaging displayed as appropriate. Fluoroscopy precautions taken if applicable. Equipment and supplies in room. Verify patient is not if applicable Carly Bryan 10/04/2024 12:26:42 PM > Third Critical Point [facility] PRACTI [...] discharged ambulatory. Patient denies complaints or questions Carly Bryan 10/04/2024 13:06:25 PM > Progress Notes * Examination Category Sub-Category [...] patient's typical axial low back pain. Raul's, [place]'s and [place]'s are positive bilaterally. There is [...] and Follow-up: Follow-up Plan documen coreen:: Yes [facility] Quality 2020: [facility] Documented:: Compliant
--- OUTSIDE RECORDS SUMMARY | 2024-10-23 09:24 | XMS_ITS ---
Author Organization [facility] Address [address] [facility] [place] [address] Care Team Providers Care Netsuite Consultant Name Role Phone KRISTINAONDINAJosephine EDNA TINOCO Primary Care Provider Unavailab Ulises Zee Unavailable [phone] REASON FOR VISIT post procedure call Encounters Encounter Location Date Provider Diagnosis [facility] [address] [place] [address] 10/05/2024 Ulises Keenan PLAN OF TREATMENT Next Appt Details Provider Name:Ulises loredo, 11/30/2024 10:00:00 AM, [address], [place], [address],
--- OUTSIDE RECORDS SUMMARY | 2024-10-23 09:24 | XMS_ITS | Referral Summary ---
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 MEDICARE SUPPLEMENT MEDICARE PENDING SALE TO [facility] MEDICARE [facility] MEDICARE SUPPLEMENT Care Teams Order Schedule Clerk Relationship Specialty Start Date End Date Jennifer Waller DO PCP - General Family Medicine 05/27/22
[2024-10-23 09:26] VITALS: BP 131/68; PULSE 100; RESP 18; TEMP 36.9; O2SAT 98
--- OUTSIDE RECORDS SUMMARY | 2024-10-23 09:39 | XMS_ITS | Clinical Summary ---
Author Organization [facility] Address [facility] [place] [address] Care Team Providers Care Waste Disposal Plant Operator Name Role Phone UlisesbatshevaJennifer shrama Primary Care Provider [phone] Allergies No known active allergies Medications estradiol [...] lumbar region without myelopathy or radiculopathy 05/28/2022 Encounters Date Type Department Care Team Description 10/05/2024 1:50 PM CDT - 10/05/2024 11:59 PM CDT Hospital Encounter 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 Gender Identity Not on file Sexual Orientation [...] 7:24 AM CDT Height 157.5 cm (5' 2) 11/18/2023 7:24 AM CDT Body Mass Index 23.59 11/18/2023 7:24 AM CDT Plan of Treatment Health Maintenance Due Date Last Done Comments Hepatitis C 1963 Annual Medicare Wellness Visit 2010 Dexa Scan (General) 2010 Pneumococcal Vaccine: 50+ Years (2 of 2 - PPSV23) 03/13/2016 03/13/2015, 04/13/2011 COVID-19 Vaccine ( season) 2023 12/30/2022, 09/25/2022, 01/09/2022, Additional history exists DTaP, Tdap and Td [...] on patient's age to complete this topic Procedures Procedure Name Priority Date/Time Associated Diagnosis Comments XR LUMB SP+FLEX+EXT MIN 4V Routine 10/05/2024 2:23 PM CDT Low back pain from Last 3 Months Results * XR LUMB SP+FLEX+EXT MIN 4V (10/05/2024 2:23 PM CDT) Anatomical Region Laterality Modality Spine Radiographic Dona ging 10/09/2024 10:1 9 AM CDT Impressions 10/09/2024 10:21 AM CDT IMPRESSION: 5.6 mm anterolisthesis of L4 on L5. No change with extension. This increases to 8.4 mm with flexion. Moderate diffuse degenerative disc disease and facet arthropathy, worst at L4-L5 and L5-S1. Bilateral sacroiliac osteoarthritis. Moderate levoscoliosis. If neurologic signs are present, MRI recommended. Referred By: Interpreted By: Erich Tinsley MD, 10/09/2024 10:19 AM Narrative 10/09/2024 10:21 AM CDT [facility] [address] [place], [place] [address] EXAMINATION: LUMBAR SPINE EXAM DATE: 10/05/2024 2:06 PM REASON FOR EXAM: pain Lower back pain, spinal stenosis COMPARISON: None TECHNIQUE:4 views including flexion and extension FINDINGS: 5 lumbar-type vertebrae are identified. 5.6 mm anterolisthesis of L4 on L5. No change with extension. This increases to 8.4 mm with flexion. Moderate diffuse degenerative disc disease and facet arthropathy, worst at L4-L5 and L5-S1. Bilateral sacroiliac osteoarthritis. Moderate levoscoliosis. Procedure Note Erich Tinsley MD - 10/09/2024 [facility] [address] [place], [place] [address] EXAMINATION: LUMBAR SPINE EXAM DATE: 10/05/2024 2:06 PM REASON FOR EXAM: pain Lower back pain, spinal stenosis COMPARISON: None TECHNIQUE:4 views including flexion and extension FINDINGS: 5 lumbar-type vertebrae are identified. 5.6 mm anterolisthesis of L4 on L5. No change with extension. Thisincreases to 8.4 mm with flexion. Moderate diffuse degenerative disc disease and facet arthropathy, worst atL4-L5 and L5-S1. Bilateral sacroiliac osteoarthritis. Moderate levoscoliosis. IMPRESSION: 5.6 mm anterolisthesis of L4 on L5. No change with extension. Thisincreases to 8.4 mm with flexion. Moderate diffuse degenerative disc disease and facet arthropathy, worst atL4-L5 and L5-S1. Bilateral sacroiliac osteoarthritis. Moderatelevoscoliosis. If neurologic signs are present, MRI recommended. Referred By: Interpreted By: Erich Tinsley MD, 10/09/2024 10:19 AM Narayan Hernandez MD GENERAL IMAGING Final R esult from Last 3 Months Insurance MEDICARE [facility] Care Teams Waste Disposal Plant Operator Relationship Specialty Start Date End Date Jennifer Waller DO [address] [place] [address] PCP - General FAMILY PRACTICE 09/15/23
[2024-10-23 10:05] LABS: Hematocrit 40.3 % (37.0-47.0); Hemoglobin 13.4 g/dL (12.0-15.0); Immature Granulocyte Percent A 0.3 % (0-0.5); Lymphocytes Absolute Auto 0.37 K/mm3 (0.9-3.2); Mean Corpuscular HGB Conc 33.3 g/dl (32-36); Mean Corpuscular Hemoglobin 32.1 pg (26-34); Mean Corpuscular Volume 96.4 fl (80-100); Nucleated Red Blood Cells Absolute Auto 0.000 K/mm3 (0.0-0.012); Nucleated Red Blood Cells Perc 0.0 % (0.0-0.2); Platelet Count Result 246 k/mm3 (150-375); Red Blood Count 4.18 M/mm3 (4.2-5.4); White Blood Count 10.2 K/mm3 (4.5-10.0)
--- NOTE | 2024-10-23 10:21 | ED.GENADULT ---
HPI - General Adult General Chief complaint: Back Pain/Injury Stated complaint: back pain Time Seen by Provider: 10/23/24 09:29 History of Present Illness HPI narrative: Patient is a 79-year-old female who presents the ER with back pain that is chronic. She has had it for years. She has known lumbar stenosis. She is being evaluated for surgery at [facility]. She has had increased pain in her left buttock going down her left leg over last 24 hours and did not sleep last night. No improvement with Tylenol or ibuprofen. No fevers. Patient did feel chilled last night. She has also been urinating more frequently. No dysuria. Denies trauma. Chronic numbness left leg but no new change. Related Data Home Medications ?Medication ?Instructions ?Recorded ?Confirmed ?Last Taken ?Type geriatric multivitamin-min 1 tablet PO DAILY 11/19/20 08/08/24 11/25/20 History methenamine hippurate 1 gram tablet 1 g PO BID 11/19/23 08/08/24 Unknown History Allergies Allergy/AdvReac Type Severity Reaction Status Date / Time alendronate sodium (From AdvReac Severe joint Verified 10/23/24 09:28 Fosamax) stiffness ciprofloxacin AdvReac Unknown Nausea Verified 10/23/24 09:28 Review of Systems Review of Systems: All systems reviewed & are unremarkable except as noted in HPI and below Constitutional: Constitutional: Reports no additional constitutional complaints Cardiovascular: Cardiovascular: Reports no additional cardiovascular complaints Respiratory: Respiratory: Reports no additional respiratory complaints Musculoskeletal: Musculoskeletal: Reports no additional musculoskeletal complaints [facility] Past Medical History Medical History Body mass index [BMI] 24.0-24.9, adult (12/03/18) UTI (urinary tract infection), bacterial Urine frequency URI, acute Trigger middle finger of right hand Sciatica of right side Recurrent cystitis Post-menopause Pain in joint involving lower leg Other spondylosis with radiculopathy, lumbar region Nocturia Liver disease, unspecified Hematuria, unspecified Encounter for immunization (01/19/18) Elevated blood pressure reading without diagnosis of hypertension Dysuria Constipation in female Breast cancer screening Bacterial vaginosis Allergy to insect bites Age related osteoporosis Arthritis Hepatitis C antibody test negative (10/24/16) Surgical History Surgical History Ovarian cyst 1998 Dr. Greene H/O colonoscopy Family History Family History Grandparent Family history of premature coronary heart disease Diabetes mellitus Hypertension Cerebrovascular accident Family history of coronary artery disease Father Hypertension Family history of congestive heart failure Mother Hypertension Son Diabetes mellitus Other Arthritis Social History Social History Smoking status: Never smoker Alcohol intake: current Alcohol use details: occasionally Substance use: never Substance use type: does not use Lack of Transportation: No Lack of Food: Never True Current Housing: I Have Housing Concerned About Future Housing: No Difficulty Paying Gas/Electric Bills: No Difficulty Paying for Meds: No Currently Unemployed: No Education: Associate Degree Difficulty w/ Childcare or Family Care: No Living arrangements: with family Additional living arrangements comments: lives with spouse Kiran Occupation/Education: retired Gender identity (if verbalized by the patient): Female Sexual Orientation (if Verbalized by the Patient): Straight or Heterosexual Spiritual care concerns: No Exam Narrative: GENERAL: Well-appearing, well-nourished, and in no acute distress. HEAD: Normocephalic, atraumatic. ENT: Mucous membranes moist. CHEST: Clear to auscultation. No respiratory distress. HEART: Regular rate and rhythm. Normal peripheral pulses. Back: No reproducible midline or paraspinal tenderness the T/L-spine. Mild discomfort in SI/buttock region on left side. EXTREMITIES: Normal range of motion. No edema. SKIN: Warm, dry, no rash. NEURO: Alert and oriented x3. PSYCH: Normal mood and affect. Course Vital Signs Vital signs: Vital Signs Temperature 98.5 F 10/23/24 09:26 Pulse Rate 100 10/23/24 09:26 Respiratory Rate 18 10/23/24 09:26 Blood Pressure 131/68 10/23/24 09:26 Pulse Oximetry 98 10/23/24 09:26 Temperature 98.5 F 10/23/24 09:26 Pulse Rate 100 10/23/24 09:26 Respiratory Rate 18 10/23/24 09:26 Blood Pressure 131/68 10/23/24 09:26 Pulse Oximetry 98 10/23/24 09:26 Medical Decision Making Vital Signs Vital Signs: Vital Signs Temperature 98.5 F 10/23/24 09:26 Pulse Rate 100 10/23/24 09:26 Respiratory Rate 18 10/23/24 09:26 Blood Pressure 131/68 10/23/24 09:26 Pulse Oximetry 98 10/23/24 09:26 Temperature 98.5 F 10/23/24 09:26 Pulse Rate 100 10/23/24 09:26 Respiratory Rate 18 10/23/24 09:26 Blood Pressure 131/68 10/23/24 09:26 Pulse Oximetry 98 10/23/24 09:26 Lab Data 10/23/24 09:56 10/23/24 09:56 Labs: Lab Results 10/23/24 10/23/24 Range/Units 09:56 10:13 WBC 10.2 H (4.5-10.0) K/mm3 RBC 4.18 L (4.2-5.4) M/mm3 Hgb 13.4 (12.0-15.0) g/dL Hct 40.3 (37.0-47.0) % MCV 96.4 (80-100) fl MCH 32.1 (26-34) pg MCHC 33.3 (32-36) g/dl RDW 11.8 (11.5-14.5) % Plt Count 246 (150-375) k/mm3 MPV 9.2 (7.4-10.4) fl Immature Gran % (Auto) 0.3 (0-0.5) % Neut % (Auto) 88.7 H (45.5-73.1) % Lymph % (Auto) 3.6 L (18.3-44.2) % Ness % (Auto) 7.0 (2.6-8.5) % Eos % (Auto) 0.0 (0-4.4) % Baso % (Auto) 0.4 (0.2-1.2) % Lymph # (Auto) 0.37 L (0.9-3.2) K/mm3 Ness # (Auto) 0.7 H (0.1-0.6) K/mm3 Eos # (Auto) 0.0 (0-0.3) K/mm3 Baso # (Auto) 0.0 (0.0-0.1) K/mm3 Abs Immat Gran (auto) 0.03 (0.00-0.031) K/mm3 Absolute Neuts (auto) 9.1 H (1.3-6.7) K/mm3 Absolute Nucleated RBC 0.000 (0.0-0.012) K/mm3 Nucleated RBC % 0.0 (0.0-0.2) % Sodium 134 L (137-145) mmol/L Potassium 3.9 (3.4-5.0) mmol/L Chloride 101 (98-107) mmol/L Carbon Dioxide 26 (22-30) mmol/L Anion Gap 7 (4-12) mmol/L BUN 16 (7-17) mg/dL Creatinine 0.58 L (0.7-1.0) mg/dL Estim Creat Clear Calc 53 ml/min Estimated GFR > 60 (59 - ) Glucose 158 H (65-110) mg/dL Calcium 9.7 (8.4-10.2) mg/dL Total Bilirubin 0.4 (0.2-1.3) mg/dL AST 33 (14-36) U/L ALT 20 (6-35) U/L Alkaline Phosphatase 65 (38-126) U/L Total Protein 6.7 (6.3-8.2) g/dL Albumin 3.9 (3.5-5.1) g/dL Urine Color Yellow (Yellow) Urine Appearance Clear (Clear) Urine pH 6.5 (5.0-9.0) Ur Specific [place] 1.016 (1.001-1.035) Urine Protein Trace (Negative) mg/dL Urine Glucose (UA) Negative (Negative) mg/dL Urine Ketones Negative (Negative) mg/dL Ur Blood (Man) Negative (Negative) Urine Nitrate Positive H (Negative) Urine Bilirubin Negative (Negative) Urine Urobilinogen 0.2 (<2.0) mg/dL Leukocyte Esterase Rfl 2+ H (Negative) DONNY/UL Urine RBC 3-5 H (0-2) /hpf Urine WBC 51-100 H (0-3) /hpf Ur Squamous Epith Cells None seen (Few) /hpf Urine Bacteria 4+ H /hpf Urine Casts 3-5 Discharge Plan Discharge Clinical Impression: Acute UTI Patient Disposition: Home Condition: Stable Instructions: Urinary Tract Infection in Women (ED), Back Pain (ED) Additional Instructions: You should return to the emergency department if you develop severe nausea and vomiting and are unable to keep liquids down, if you develop severe back/flank or stomach pain, or if your symptoms are not clearly improving at home. Patient Language: Chinese Prescriptions: New cephalexin 500 mg capsule 500 mg PO Q8H Qty: 21 0RF hydrocodone-acetaminophen 5-325 mg tablet 1 tablet PO Q6H PRN (Reason: pain) Qty: 12 0RF No Action methenamine hippurate 1 gram tablet 1 g PO BID One-A-Day 50 Plus Tablet 1 tablet PO DAILY trazodone 50 mg tablet 50 mg PO QHS PRN (Reason: Sleep) Qty: 90 1RF amoxicillin-pot clavulanate 875-125 mg tablet 1 tablet PO BID Qty: 14 0RF lisinopril 10 mg tablet See Rx Instructions .ROUTE .COMPLEX Qty: 90 1RF Dose Instruction: TAKE 1 TABLET BY MOUTH DAILY Rx Instructions: TAKE 1 TABLET BY MOUTH DAILY naproxen 500 mg tablet 500 mg PO BID PRN (Reason: pain) Qty: 60 0RF cyclobenzaprine 5 mg tablet 5 mg PO TID PRN (Reason: muscle spasm) Qty: 20 0RF Follow-up/Referrals: Jennifer Waller DO [Primary Care Provider] - 1 Week
[2024-10-23 10:22] LABS: Add Urine Microscopic? YES; Appearance Urine Clear (Clear); Glucose Urine UA Negative (Negative); Leukocyte Esterase Ur 2+ LEU/UL (Negative); Nitrate Urine Positive (Negative); Specific Grav Ur 1.016 (1.001-1.035)
[2024-10-23 10:25] LABS: Alanine Aminotransferase 20 U/L (6-35); Albumin Level 3.9 g/dL (3.5-5.1); Alkaline Phosphatase 65 U/L (38-126); Anion Gap 7 mmol/L (4-12); Aspartate Amino Transferase 33 U/L (14-36); Bilirubin,Total 0.4 mg/dL (0.2-1.3); Blood Urea Nitrogen 16 mg/dL (7-17); Calcium 9.7 mg/dL (8.4-10.2); Carbon Dioxide 26 mmol/L (22-30); Chloride 101 mmol/L (98-107); Estimated CRCL calculation 53 ml/min; Estimated Glomerular Filt Rate > 60; Glucose 158 mg/dL (65-110); Potassium 3.9 mmol/L (3.4-5.0); Sodium 134 mmol/L (137-145); Total Protein 6.7 g/dL (6.3-8.2)
[2024-10-23 11:30] VITALS: BP 122/68; PULSE 78; RESP 14; O2SAT 98
== END 2024-10-23 12:28 | disposition home or self-care (01) ==
PROVIDERS: Emergency Provider Emergency Medicine; PCP Family Medicine
DX: N39.0 Urinary tract infection, site not specified (principal); K76.9 Liver disease, unspecified; M48.061 Spinal stenosis, lumbar region without neurogenic claudication; M81.0 Age-related osteoporosis without current pathological fracture; M19.90 Unspecified osteoarthritis, unspecified site; Z87.440 Personal history of urinary (tract) infections; Z79.899 Other long term (current) drug therapy
CPT/HCPCS: 36415; 80053; 81001; 85025; 99283

== ENCOUNTER 2024-10-25 10:57 | Outpatient (CLI) | payer MEDICARE, SELFPAY ==
--- OUTSIDE RECORDS SUMMARY | 2024-10-25 11:19 | XMS_ITS | Clinical Summary ---
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
--- OUTSIDE RECORDS SUMMARY | 2024-10-25 11:19 | XMS_ITS | Referral Summary ---
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
--- OUTSIDE RECORDS SUMMARY | 2024-10-25 11:19 | XMS_ITS | Clinical Summary ---
Author Organization 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 [address] Health Maintenance Due Date Last Done Comments [...] 10:19 AM Narrative 10/09/2024 10:21 AM CDT [facility] [address] EXAMINATION: LUMBAR SPINE EXAM DATE: 10/05/2024 2:06 [...] Procedure Note Erich Tinsley MD - 10/09/[address] [address] EXAMINATION: LUMBAR SPINE EXAM DATE: 10/05/2024 2:06 [...] By: Erich Tinsley MD, 10/09/2024 10:19 AM us Narayan Hernandez MD GENERAL IMAGING Final R esult from Last 3 Months Insurance MEDICARE [facility] Care Teams Shuttle Hand Relationship Specialty Start Date End Date Jennifer Waller DO [address] [place] [address] PCP - General FAMILY PRACTICE 09/15/23
--- OUTSIDE RECORDS SUMMARY | 2024-10-25 11:19 | XMS_ITS | Clinical Summary ---
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 Gender Identity Female 11/12/2022 8:30 AM CDT [...] 59 kg (130 lb) 04/18/2024 10:39 AM RETAIL CLIENT SOLUTIONS ANALYST Height 157.5 cm (5' 2) 04/10/2023 12:49 PM RETAIL [employer]IENT SOLUTIONS ANALYST Body Mass Index 23.78 04/10/2023 12:49 PM RETAIL CLIENT SOLUTIONS ANALYST Plan of Treatment Health Maintenance Due Date [...] Td or Tdap) 04/02/2032 04/02/2022 Insurance MEDICARE [facility] MEDICARE SUPPLEMENT MEDICARE [facility] MEDICARE [facility] MEDICARE SUPPLEMENT Care Teams Board Of Directors Relationship Specialty Start Date End Date Jennifer Waller DO PCP - General Family Medicine 05/27/22
[2024-10-25 14:52] LABS: Add Urine Microscopic? YES; Appearance Urine Clear (Clear); Glucose Urine UA Negative (Negative); Leukocyte Esterase Ur Trace LEU/UL (Negative); Nitrate Urine Negative (Negative); Non Pathogenic Casts 0-2; Specific Grav Ur 1.010 (1.001-1.035)
== END 2024-10-25 10:58 | disposition home or self-care (01) ==
LOC: ANHGOSHLAB 10:58
PROVIDERS: PCP Family Medicine; Visit Provider Nurse Practitioner
DX: R82.90 Unspecified abnormal findings in urine (principal); R35.0 Frequency of micturition
CPT/HCPCS: 81001; 87086

== ENCOUNTER 2024-10-25 11:11 | Outpatient (CLI) | payer MEDICARE, SELFPAY ==
--- NOTE | ~2024-10-25 | XR_ITS ---
Cervical Spine: AP, lateral, oblique, open-mouth views Clinical History: Pain Findings: The normal lordotic curve is maintained. No acute fracture seen. There is 5 mm anterolisthe sis of C4 over C5. There is severe degenerative disc narrowing from C3 through C7. There is moderate to severe facet arthropathy throughout the cervical spine. Pre-vertebral soft tissues are unremarkabl e. Impression: Severe degenerative spondylosis, as above. 5 mm anterolisthesis of C4 over C5. Reviewed, dictated and finalized at location . Impression: Severe degenerative spondylosis, as above. 5 mm anterolisthesis of C4 over C5.
== END 2024-10-25 11:12 | disposition home or self-care (01) ==
LOC: GOSHIMG 11:11
PROVIDERS: PCP Anesthesiology; Visit Provider Anesthesiology
DX: M47.892 Other spondylosis, cervical region (principal); M43.12 Spondylolisthesis, cervical region
CPT/HCPCS: 72050

== ENCOUNTER 2025-01-05 10:45 | Outpatient (RCR) | payer MEDICARE, SELFPAY ==
--- NOTE | 2024-11-28 14:24 | OPREHPOC ---
Outpatient Therapy Plan of Care This is a Multidisciplinary Plan of Care that may contain components documented by all disciplines (PT, OT, and ST.) PT Problem 1 PT Problem #1 Knowledge Deficit PT Goal 1 Goal / Goal Update 1. Patient will perform independent HEP Target Visit 3 PT Problem 2 PT Problem #2 Impaired Strength PT Goal 1 Goal / Goal Update 1. Improve strength to 4/5 to reduce incontinence 2. Improve endurance to 10 seconds to reduce incontinence Target Visit 5 PT Problem 3 PT Problem #3 Impaired Functional ADLs PT Goal 1 Goal / Goal Update 1. Patient will void no more than 8 times in a 24 hour period 2. Patient will be able to hold urge at least 30 minutes before voiding 3. Patient will report urinary incontinence no more than 1 time per week
--- NOTE | 2024-11-28 14:24 | PTOPEVAL1 ---
Assessment and note entered by Beatris Lynn DPT Evaluation Information Assessment Status Evaluation ICD-10 Condition Codes (PT) Weakness R53.1,Mixed incontinence N39.46,Stress incontinence N39.3 Subjective Information Pt reports back issues and a long history of urinary incontinence. Two previous bladder tie ups. Incontinence for at least 20 years. Occurs on average 4 days a week and happens with waiting too long to void. Sometimes will happen with a cough or a sneeze. Wears pads some of the time and sometimes the incontinence is enough to change clothes too. Voids 9 times a day and 2 times at night. Denies pain with urination typically. BM every other day, sometimes has some constipation issues and has been diagnosed with IBS. Fecal incontinence (small volume) 2 times a month. Denies history of pelvic pain. Pt has been 4 times and 3 vaginal deliveries, episiotomies. Does have chronic UTI's. Sees Dr. Donovan regularly. Patient goal: decrease the frequency of incontinence, voices frustration and embarrassment over the incontinence Returns to referring MD in May. Reported Pain Level Pain Score 0: Self Report Assessment PT Clinical Summary The patient is presenting to skilled therapy with a long history of urinary incontinence. She also reports increased urinary frequency and urgency, and infrequent fecal incontinence. She demonstrates decreased pelvic floor strength and endurance and will highly benefit from therapy to address her impairments in order to reduce incontinence and restore full function. She will also benefit from education in urge suppression strategies. Plan of Care Interventions Manual Therapy,Neuro Re-education,Patient/ Caregiver Education,Therapeutic Activities, Therapeutic Exercise PT Services Indicated Yes Treatment Frequency and 1 time a week 5 visits Duration These treatments will address the objective and functional deficits as defined above. The patient will be advanced safely and appropriately in order for the patient to progress towards his/her prior level of function. Additional exercises will be introduced and as well as a comprehensive home exercise program upon discharge, if needed, ?to ensure carryover of functional gains achieved in the clinic. This treatment plan has been reviewed and agreement upon by the patient.
--- NOTE | 2025-01-05 11:18 | OPREHPOC ---
Outpatient Therapy Plan of Care This is a Multidisciplinary Plan of Care that may contain components documented by all disciplines (PT, OT, and ST.) PT Problem 1 PT Problem #1 Knowledge Deficit PT Goal 1 Goal / Goal Update 1. Patient will perform independent HEP Target Visit 3 Progress Met PT Problem 2 PT Problem #2 Impaired Strength PT Goal 1 Goal / Goal Update 1. Improve strength to 4/5 to reduce incontinence 2. Improve endurance to 10 seconds to reduce incontinence update 01/05/25 1. met 2. improved to 4 Target Visit 5 Progress Partially Met PT Problem 3 PT Problem #3 Impaired Functional ADLs PT Goal 1 Goal / Goal Update 1. Patient will void no more than 8 times in a 24 hour period 2. Patient will be able to hold urge at least 30 minutes before voiding 3. Patient will report urinary incontinence no more than 1 time per week Target Visit 5 Progress Met
--- NOTE | 2025-01-05 11:18 | PTOPDC ---
Assessment and note entered by Beatris Lynn DPT Evaluation Information Assessment Status Discharge ICD-10 Condition Codes (PT) Weakness R53.1,Mixed incontinence N39.46,Stress incontinence N39.3 Subjective Information Incontinence about once a week recently. Voiding 6 times a day and 1 time at night. Has been avoiding just in case voiding. No fecal incontinence in the last month. Reported Pain Level Pain Score 0: Self Report Assessment PT Clinical Summary The patient has made excellent progress in therapy . She reports greatly decreased incontinence to 1 time a week, and reports normalized urinary frequency/ability to hold urge. She also demonstrates improved pelvic floor strength and endurance, as well as improved hip and abdominal strength. Due to her progress as well as upcoming trip and other medical procedures, plan for discharge to [facility] at this time. She has been educated to follow up with MD and/or PT as needed. Plan of Care PT Services Indicated No
== END 2025-01-05 16:18 | disposition home or self-care (01) ==
LOC: ANHGOSHPT 10:45
PROVIDERS: PCP Family Medicine; Visit Provider Nurse Practitioner
DX: R32 Unspecified urinary incontinence (principal)
CPT/HCPCS: 97112; 97161; 97530

== ENCOUNTER 2025-03-07 11:45 | Emergency (ER) | payer MEDICARE, SELFPAY ==
--- NOTE | 2025-03-07 11:48 | ED_ITS ---
HPI - Female Genitourinary General Chief complaint: Urogenital-Female Stated complaint: UTI SYMPTOMS Time Seen by Provider: 03/07/25 11:55 Source: patient, RN notes reviewed and old records reviewed Mode of arrival: ambulatory Limitations: no limitations History of Present Illness HPI Narrative: 8-year-old female presents to the [facility] with concerns for UTI. History of multiple UTIs. Has an appointment with Urology on Mar with Dr Donovan. Patient reports that she had abnormal smell, lower abdominal pressure, frequency, burning, cloudiness that started last night. Also reports urgency, had to get out of bed 5 times last night to urinate. Related Data Home Medications ?Medication ?Instructions ?Recorded ?Confirmed ?Last Taken ?Type geriatric multivitamin-min 1 tablet PO DAILY 11/19/20 12/26/24 11/25/20 History estradiol 0.01% (0.1 mg/gram) 1 g vaginal 2XW 11/02/24 12/26/24 Unknown History vaginal cream acetaminophen 500 mg capsule 1,000 mg PO Q6H PRN 12/2612/26/24 Unknown History pyridoxine (vitamin B6) 10 mg 10 mg PO DAILY 12/26/24 12/26/24 Unknown History tablet Allergies Allergy/AdvReac Type Severity Reaction Status Date / Time alendronate sodium (From AdvReac Severe joint Verified 03/07/25 12:06 Fosamax) stiffness ciprofloxacin AdvReac Unknown Nausea Verified 03/07/25 12:06 wasabi Allergy Severe passes out Uncoded 12/26/24 14:16 Review of Systems Review of Systems: All systems reviewed & are unremarkable except as noted in HPI and below Constitutional: Constitutional: Reports no additional constitutional comp laints ENT: Reports system reviewed and no additional complaints, except as documented Cardiovascular: Cardiovascular: Reports no additional cardiovascular complaints, Denies chest pain and Denies dyspnea Respiratory: Respiratory: Reports no additional respiratory complaints, Denies chest congestion, Denies cough and Denies dyspnea Genitourinary: Genitourinary: Reports as per HPI Musculoskeletal: Musculoskeletal: Reports no additional musculoskeletal complaints Integumentary/Breasts: Skin/Breast: Reports system reviewed and no additional complaints, except as docu [facility] Past Medical History Medical History Body mass index [BMI] 24.0-24.9, adult (12/03/18) UTI (urinary tract infection), bacterial Urine frequency URI, acute Trigger middle finger of right hand Sciatica of right side Recurrent cystitis Post-menopause Pain in joint involving lower leg Other spondylosis with radiculopathy, lumbar region Nocturia Liver disease, unspecified Hematuria, unspecified Encounter for immunization (01/19/18) Elevated blood pressure reading without diagnosis of hypertension Dysuria Constipation in female Breast cancer screening Bacterial vaginosis Allergy to insect bites Age related osteoporosis Arthritis Hepatitis C antibody test negative (10/24/16) Surgical History Surgical History Ovarian cyst [address] Dr. Greene H/O colonoscopy Family History Family History Grandparent Family history of premature coronary heart disease Diabetes mellitus Hypertension Cerebrovascular accident Family history of coronary artery disease Father Hypertension Family history of congestive heart failure Mother Hypertension Son Diabetes mellitus Other Arthritis Social History Social History Smoking status: Never smoker Alcohol intake: current Alcohol use details: occasionally Substance use: never Substance use type: does not use Lack of Transportation: No Lack of Food: Never True Current Housing: I Have Housing Concerned About Future Housing: No Difficulty Paying Gas/Electric Bills: No Difficulty Paying for Meds: No Currently Unemployed: No Education: Associate Degree Difficulty w/ Childcare or Family Care: No Living arrangements: with family Additional living arrangements comments: lives with spouse Kiran Occupation/Education: retired Gender identity (if verbalized by the patient): Female Sexual Orientation (if Verbalized by the Patient): Straight or Heterosexual Spiritual care concerns: No Comments At the time of my signature, I reviewed and agree with the nursing past medical, surgical, social, and family history. There is no relevant family history pertinent to the patient complaint. Exam Const: General: cooperative, healthy appearing, comfortable, no acute distress, well developed, alert and well nourished Nutritional Appearance: well nourished Orientation/consciousness: patient oriented x3 Limitations: no limitations HENMT: Head: normal to inspection Mouth: Yes Normal oral and palatal mucosa present, Yes lip normal, Yes tongue normal and Yes moist mucous membranes Eyes: General: appearance normal, both eyes and all related structures Alignment and Position: alignment normal Neck: Neck: normal visual inspection, full ROM, no lymphadenopathy and no meningeal signs Chest: Chest palpation & inspection: normal inspection of the chest Resp: Effort & Inspection: normal respiratory effort and able to speak in complete sentences Auscultation: clear to auscultation bilaterally, no crackles, no rales, no rhonchi and no wheezes Cardio: Rate: regular rate GI: GI Palp: No abdominal tenderness : General: Yes no CVA tenderness Skin: General skin exam: normal color and no rashes or lesions noted Neuro: General: patient oriented x3, gait normal, moves all extremities and no meningeal signs Cognition (Neuro): normal cognition Speech: normal speech Gait exam (Neuro): Normal gait present Extrem: General: normal to inspection, full ROM, capillary refill normal and normal gait Psych: Appearance: grossly normal and well kempt Mental Status: mental status grossly normal Speech and movement: Normal speech and movement present and Clear speech present Affect: normal affect Attitude: cooperative Course Course Level of Care: Express Care Visit Vital Signs Vital signs: Vital Signs Temperature 96.6 F L 03/07/25 11:55 Pulse Rate 75 03/07/25 11:55 Respiratory Rate 16 03/07/25 11:55 Blood Pressure 130/68 03/07/25 11:55 Pulse Oximetry 100 03/07/25 11:55 Temperature 96.6 F L 03/07/25 11:55 Pulse Rate 75 03/07/25 11:55 Respiratory Rate 16 03/07/25 11:55 Blood Pressure 130/68 03/07/25 11:55 Pulse Oximetry 100 03/07/25 11:55 Reviewed MDM - Female Genitourinary MDM Narrative Medical decision making narrative: Patient sitting in exam room. Patient is nontoxic, vitals stable. Patient presents with 1 day history of urinary symptoms. Patient positive blood, positive leukocytes, will culture. Patient already has an appointment with urology. Patient is appropriate for outpatient treatment with close follow-up. Discharge instructions reviewed with patient, as well as provided in writing per nursing staff. The instructions also include specific and strict return/GO TO THE ER as well as f/u information. All questions have been answered, and the patient deny any further questions with discharge and discharge plan. Some parts of this dictation were generated by voice recognition software and may contain typographical and/or grammatical inaccuracies. Differential Diagnosis Differential diagnosis: Likely urinary tract infection and cystitis Lab Data Labs: Lab Results 03/07/25 Range/Units 11:50 POC Urine Color Yellow POC Urine Clarity Cloudy POC Urine pH 6.5 POC Ur Specif Crawford 1.030 POC Urine Protein 3+ (Negative) POC Ur Glucose (UA) Negative (Negative) POC Urine Ketones Negative (Negative) POC Urine Blood 3+ (Negative) POC Urine Nitrite Negative (Negative) POC Urine Bilirubin Negative (Negative) POC Urine Urobilinogen 0.2 POC U Leukocyte Esteras 1+ (Negative) reviewed Critical Care Time Critical Care Time Critical Care Time: No Discharge Plan Discharge Clinical Impression: Urinary tract infection Patient Disposition: Home Condition: Stable Instructions: Antibiotic Form, Urinary Tract Infection in Women (ED) Additional Instructions: Increased water intake Take Tylenol as needed for pain Take antibiotic as prescribed Today your urine dip showed a probability of a UTI. You have been prescribed an antibiotic. Your urine will be sent to our lab for a culture. If at that time a bacteria grows that is not covered by the antibiotic prescribed you will be notified. Follow-up with primary care follow-up with urology as already scheduled For new or worsening symptoms go directly to the emergency room Patient Language: Turkmen Prescriptions: New cefpodoxime 200 mg tablet 200 mg PO BID 5 Days Qty: 10 0RF Rx Instructions: must administer with a meal/food No Action acetaminophen 500 mg capsule 1,000 mg PO Q6H PRN pyridoxine (vitamin B6) 10 mg tablet 10 mg PO DAILY lisinopril 5 mg tablet 5 mg PO DAILY Qty: 90 1RF Prolia 60 mg/mL syringe 60 mg subcut [id number] Qty: 1 0RF estradiol 0.01 % (0.1 mg/gram) cream 1 g vaginal 2XW One-A-Day 50 Plus Tablet 1 tablet PO DAILY naproxen 500 mg tablet 500 mg PO BID PRN (Reason: pain) Qty: 60 0RF trazodone 50 mg tablet 50 mg PO QHS PRN (Reason: Sleep) Qty: 90 1RF cyclobenzaprine 5 mg tablet 5 mg PO TID PRN (Reason: muscle spasm) Qty: 90 0RF Follow-up/Referrals: Gilbert Donovan MD [Physician, Urology] - 1 Week Vernace,Jennifer M., DO [Primary Care Provider, [facility]] - 2 Weeks Time of Disposition: 12:08
[2025-03-07 11:55] VITALS: BP 130/68; PULSE 75; RESP 16; TEMP 35.9; O2SAT 100
[2025-03-07 12:01] LABS: EDUAAPPEAR Cloudy; EDUABILI Negative (Negative); EDUABLOOD 3+ (Negative); EDUACOLOR1 Yellow; EDUAGLUCOSE Negative (Negative); EDUAKETONE Negative (Negative); EDUALEUKO 1+ (Negative); EDUANITRATE Negative (Negative); EDUAPH 6.5; EDUAPROTEIN 3+ (Negative); EDUASPGRAVITY 1.030; EDUAUROBILI 0.2
== END 2025-03-07 12:12 | disposition home or self-care (01) ==
PROVIDERS: Emergency Provider Nurse Practitioner; PCP Family Medicine
DX: N39.0 Urinary tract infection, site not specified (principal); M19.90 Unspecified osteoarthritis, unspecified site
CPT/HCPCS: 81003; 87086; 99213; G0463